=== PATIENT | female | born 1950 | race Caucasian/White ===

== ENCOUNTER 2017-09-20 09:29 | Inpatient (IN) | payer MEDICARE ==
[~2017-09-20] VITALS: Ht 157.5 cm; Wt 166.9 kg
[2017-09-20] VITALS (13 sets, daily range): BP systolic 115–204; BP diastolic 58–104; PULSE 76–93; RESP 16–26; TEMP 97.3–98.2; O2SAT 85–98
--- NOTE | 2017-09-20 09:50 | PD ---
HPI Chief Complaint: Respiratory Distress Time Seen by Provider: 09:46 Travel History International Travel<30 days: No Contact w/Intl Traveler<30days: No Traveled to known affect area: No History of Present Illness HPI LOCATION:chest QUALITY:sob SEVERITY:moderate TIMING: worsening over last 3hrs DURATION:2 days of dry cough and sob CONTACTs:: no sick contact MODIFYING FACTORS:activity makes her more sob ASSOCIATED sign AND SYMPTOMS: denies fever/cp/abdpain/backpain/n/v/d/ at this time pcp in [facility] pmhx: copd, LBBB PSHX: GASTRIC BYPASS, BLEEDING ULCERS PFSH Social History Tobacco Use: No Allergies-Medications (Allergen,Severity, Reaction): Coded Allergies: No Known Drug Allergies (Verified Allergy, Unknown, 09/20/17) Reported Meds & Prescriptions Reported Meds & Active Scripts Active Reported Pantoprazole (Pantoprazole Sodium) 40 Mg Tab 40 Mg PO DAILY Review of Systems Except as stated in HPI: all other systems reviewed are Neg General / Constitutional: No: Fever Eyes: No: Visual changes HENT: No: Headaches Cardiovascular: No: Chest Pain or Discomfort Respiratory: Positive: Shortness of Breath Gastrointestinal: No: Abdominal Pain Genitourinary: No: Dysuria Musculoskeletal: No: Pain Skin: No Rash Neurologic: No: Weakness Psychiatric: No: Depression Endocrine: No: Polydipsia Hematologic/Lymphatic: No: Easy Bruising Physical Exam Narrative GENERAL: SKIN: Warm and dry. HEAD: Atraumatic. Normocephalic. EYES: Pupils equal and round. No scleral icterus. No injection or drainage. ENT: No nasal bleeding or discharge. Mucous membranes pink and moist. NECK: Trachea midline. No JVD. CARDIOVASCULAR: Regular rate and rhythm. RESPIRATORY: No accessory muscle use. decreased tv, scattered wheezing, tripoding, 2 word dyspnea GASTROINTESTINAL: Abdomen soft, non-tender, nondistended. Hepatic and splenic margins not palpable. MUSCULOSKELETAL: Extremities without clubbing, cyanosis, or edema. No obvious deformities. NEUROLOGICAL: Awake and alert. No obvious cranial nerve deficits. Motor grossly within normal limits. Five out of 5 muscle strength in the arms and legs. Normal speech. PSYCHIATRIC: Appropriate mood and affect; insight and judgment normal. Data Data Last Documented VS Orders Orders Complete Blood Count With Diff (09/20/17 10:03) Comprehensive Metabolic Panel (09/20/17 10:03) B-Type Natriuretic Peptide (09/20/17 10:03) Act Partial Throm Time (Ptt) (09/20/17 10:03) Prothrombin Time / Inr (Pt) (09/20/17 10:03) Troponin I (09/20/17 10:03) Influenzae A/B Antigen (09/20/17 10:03) Iv Access Insert/Monitor (09/20/17 10:03) Electrocardiogram (09/20/17 10:03) Ecg Monitoring (09/20/17 10:03) Oximetry (09/20/17 10:03) Oxygen Administration (09/20/17 10:03) Chest, Single Ap (09/20/17 10:03) Sodium Chloride 0.9% Flush (Ns Flush) (09/20/17 10:15) Methylprednisolone So Succ Inj (Solumedr (09/20/17 10:15) Albuterol Neb (Albuterol Neb) (09/20/17 10:15) Resp Bipap / Cpap Non Invas Vt (09/20/17 10:03) Ondansetron Inj (Zofran Inj) (09/20/17 13:45) Admit Order (Ed Use Only) (09/20/17 13:47) Admit To Inpatient (09/20/17 ) Vital Signs (Adult) Q4H (09/20/17 13:47) Activity Oob Ad Dayna (09/20/17 ) Sodium Chloride 0.9% Flush (Ns Flush) (09/20/17 21:00) Sodium Chloride 0.9% Flush (Ns Flush) (09/20/17 14:00) Albuterol-Ipratropium Neb (Duoneb Neb) (09/20/17 16:00) Albuterol Neb (Albuterol Neb) (09/20/17 14:00) Methylprednisolone So Succ Inj (Solumedr (09/20/17 15:00) Azithromycin (Zithromax) (09/20/17 15:00) Ceftriaxone Inj (Rocephin Inj) (09/20/17 15:00) Resp Oxygen Jose Enrique C Titrat 1-4 L (09/20/17 ) Scd Bilateral/Knee High SAM.BID (09/20/17 13:47) Inpatient Certification (09/20/17 ) Labs Laboratory Tests Test 09/20/17 09:48 White Blood Count 9.3 TH/MM3 Red Blood Count 5.55 MIL/MM3 Hemoglobin 14.2 GM/DL Hematocrit 46.1 % Mean Corpuscular Volume 83.1 FL Mean Corpuscular Hemoglobin 25.5 PG Mean Corpuscular Hemoglobin Concent 30.7 % Red Cell Distribution Width 17.5 % Platelet Count 327 TH/MM3 Mean Platelet Volume 8.0 FL Neutrophils (%) (Auto) 78.9 % Lymphocytes (%) (Auto) 14.9 % Monocytes (%) (Auto) 4.4 % Eosinophils (%) (Auto) 1.1 % Basophils (%) (Auto) 0.7 % Neutrophils # (Auto) 7.4 TH/MM3 Lymphocytes # (Auto) 1.4 TH/MM3 Monocytes # (Auto) 0.4 TH/MM3 Eosinophils # (Auto) 0.1 TH/MM3 Basophils # (Auto) 0.1 TH/MM3 CBC Comment DIFF FINAL Differential Comment Prothrombin Time 11.0 SEC Prothromb Time International Ratio 1.1 RATIO Activated Partial Thromboplast Time 28.6 SEC Blood Urea Nitrogen 16 MG/DL Creatinine 0.72 MG/DL Random Glucose 123 MG/DL Total Protein 7.6 GM/DL Albumin 3.2 GM/DL Calcium Level 8.3 MG/DL Alkaline Phosphatase 119 U/L Aspartate Amino Transf (AST/SGOT) 26 U/L Alanine Aminotransferase (ALT/SGPT) 28 U/L Total Bilirubin 0.9 MG/DL Sodium Level 141 MEQ/L Potassium Level 4.7 MEQ/L Chloride Level 100 MEQ/L Carbon Dioxide Level 34.6 MEQ/L Anion Gap 6 MEQ/L Estimat Glomerular Filtration Rate 80 ML/MIN Troponin I LESS THAN 0.02 NG/ML B-Type Natriuretic Peptide 190 PG/ML MDM Medical Decision Making Medical Screen Exam Complete: Yes Emergency Medical Condition: Yes Medical Record Reviewed: Yes Interpretation(s) NSR 85, RAD, LBBB (PATIENT GIVES H/O OF) Differential Diagnosis copd exac with hypoxemia v pna v ptx v uti Narrative Course pulse ox with good pleth wave, 85 on nrbm Critical Care Narrative CRITICAL CARE NOTE: With evaluation of the patient, labs, EKG, receipt of radiologic studies, administration of medications, reevaluation the patient and discussion of the patient with the admitting physicians, the total critical care time was [45] minutes. Time to perform other separately billable procedures was not included in the critical care time. Diagnosis Primary Impression: copd exacerbaton with hypoxemia Additional Impression: moderate to severe hypoxemia requiring bipap Admitting Information Admitting Physician Requests: Observation Duke Barnes MD Sep 20, 2017 09:50
[2017-09-20] MEDS: RESP: ALBUTEROL 2.5 MG/3 ML NEB (SCH) INH ×2 (10:15→10:30)
[2017-09-20] MEDS ORDERED: methylPREDNISolone SOD SUCC 125 MG/2 ML VIAL IV PUSH ONE (10:15)
[2017-09-20] MEDS ORDERED: SODIUM CHLORIDE 0.9% FLUSH 10 ML FLUSH IVF PRN (10:15)
[2017-09-20 10:31] LABS: AUTOMATED NEUTROPHIL # 7.4 TH/MM3 (1.8-7.7); BASOPHIL # 0.1 TH/MM3 (0-0.2); BASOPHIL % 0.7 % (0.0-2.0); EOSINOPHIL # 0.1 TH/MM3 (0-0.4); EOSINOPHIL % 1.1 % (0.0-4.0); HEMATOCRIT 46.1 % (35.0-46.0); HEMOGLOBIN 14.2 GM/DL (11.6-15.3); LYMPH % 14.9 % (9.0-44.0); LYMPHOCYTE # 1.4 TH/MM3 (1.0-4.8); MEAN CELL VOLUME 83.1 FL (80.0-100.0); MEAN CORPUSCULAR HEMOGLOBIN 25.5 PG (27.0-34.0); MEAN CORPUSCULAR HGB CONC 30.7 % (32.0-36.0); MONO % 4.4 % (0.0-8.0); MONOCYTE # 0.4 TH/MM3 (0-0.9); NEUT % 78.9 % (16.0-70.0); PLATELET COUNT 327 TH/MM3 (150-450); RED BLOOD COUNT 5.55 MIL/MM3 (4.00-5.30); RED CELL DISTRIBUTION WIDTH 17.5 % (11.6-17.2); WHITE BLOOD COUNT 9.3 TH/MM3 (4.0-11.0)
[2017-09-20] MEDS ORDERED: PANT40TA3 PO (10:38)
[2017-09-20 10:40] LABS: INTERNATIONAL NORMALIZED RATIO 1.1 RATIO
[2017-09-20 11:04] LABS: ALT (GPT) 28 U/L (10-53)
[2017-09-20 11:08] LABS: ALKALINE PHOSPHATASE 119 U/L (45-117); TOTAL BILIRUBIN ADULT 0.9 MG/DL (0.2-1.0); TOTAL PROTEIN 7.6 GM/DL (6.4-8.2); TROPONIN I LESS THAN 0.02 NG/ML (0.02-0.05)
[2017-09-20 11:16] LABS: ALBUMIN 3.2 GM/DL (3.4-5.0); AST (GOT) 26 U/L (15-37); BICARBONATE 34.6 MEQ/L (21.0-32.0); BLOOD UREA NITROGEN 16 MG/DL (7-18); CALCIUM 8.3 MG/DL (8.5-10.1); CHLORIDE 100 MEQ/L (98-107); CREATININE 0.72 MG/DL (0.50-1.00); GLOMERULAR FILTRATION RATE 80 ML/MIN (>89); GLUCOSE,RANDOM 123 MG/DL (74-106); SODIUM (NA) 141 MEQ/L (136-145)
--- NOTE | 2017-09-20 11:19 | EKG ---
Date Performed: 09/20/2017 Time Performed: 09:41:31 PTAGE: 67 years EKG: Sinus rhythm MARKED RIGHT AXIS DEVIATION INTRAVENTRICULAR CONDUCTION DELAY ABNORMAL ECG NO PREVIOUS TRACING DOCTOR: Roni Mcginnis Interpretating Date/Time 09/20/2017 11:18:09
--- NOTE | 2017-09-20 11:21 | RADRPT ---
EXAM DATE/TIME: 09/20/2017 10:50 [facility] COMPARISON: No previous studies available for comparison. INDICATIONS : Short of breath, pt on bi-pap machine MEDICAL HISTORY : none known SURGICAL HISTORY : none known ENCOUNTER: Initial ACUITY: 1 day PAIN SCORE: Non-responsive. LOCATION: Bilateral chest FINDINGS: A single view of the chest demonstrates the heart is diffusely enlarged for an AP film. There is a co nsolidation lung bases possible atelectasis. Osseous structures are intact. CONCLUSION: Cardiomegaly. Some consolidation in the right lung base most likely atelectasis. Roni Shah MD on September 20, 2017 at 11:17 Board Certified Radiologist. This report was verified electronically.
[2017-09-20] MEDS ORDERED: ONDANSETRON HCL 4 MG/2 ML VIAL IV PUSH ONE (13:45)
[2017-09-20] MEDS ORDERED: SODIUM CHLORIDE 0.9% FLUSH 10 ML FLUSH IV FLUSH PRN (14:00)
--- NOTE | 2017-09-20 14:42 | HHI.HP ---
HPI Service [facility] Primary Care Physician Unknown Admission Diagnosis COPD EXACERBATION WITH HYPOXEMIA Diagnoses: Chief Complaint: SOB Travel History International Travel<30 Days: No Contact w/Intl Traveler <30 Da: No Traveled to Known Affected Are: No History of Present Illness This is a 67-year-old female with past medical history of COPD, history of being oxygen dependent, panic/anxiety/depression disorder who presented with shortness of breathing. Patient stated that shortness of breathing was abrupt and started yesterday. She stated that this was due to her panic attack. She did not think this was due to her COPD. She has been very stressed and did not want to go further detail. She stated that she had a panic attack and these are her usual symptoms. She stated that shortness of breathing was intermittent. It worsened today so she went to the emergency department. She denies any URI symptoms. Denies any cough. Patient denies any history of tobacco use. Denies any fevers or chills. Patient was oxygen dependent but was taken off of oxygen in May. She was told by her provider up in [place] that she was overdosing on oxygen and didn' t need oxygen any longer. Previously she was on 4 L of oxygen. At the moment patient stated that her breathing has improved. She also denied having hypertension. She stated she was on Benicar a few years ago but was taken off her medications and she did not need it. She stated that her blood pressure fluctuates and that her anxiety causes her blood pressure to go up. She also stated that when she goes to doctor's offices her blood pressure is high. Patient's is at the bedside during the interview. All other review system reviewed and negative. Past Family Social History Past Medical History COPD History of bleeding ulcer Panic attacks Anxiety Depression History of hypertension but stated that blood pressure control off the medication Past Surgical History Gastric bypass Cauterization due to bleeding ulcer Cholecystectomy Tonsillectomy D&C Hernia repair Reported Medications Pantoprazole (Pantoprazole Sodium) 40 Mg Tab 40 Mg PO DAILY Allergies: Coded Allergies: No Known Drug Allergies (Verified Allergy, Unknown, 09/20/17) Active Ordered Medications Current Medications Sodium Chloride (NS Flush) 2 ml UNSCH PRN IVF FLUSH AFTER USING IV ACCESS; Start 09/20/17 at 10:15; Stop 09/20/17 at 14:43; Status DC Methylprednisolone Sodium Succinate (SoluMEDROL INJ) 125 mg ONCE ONCE IV PUSH Last administered on 09/20/17at 10:48; Start 09/20/17 at 10:15; Stop 09/20/17 at 10:16; Status DC Albuterol Sulfate (Albuterol Neb) 2.5 mg Q15M INH Last administered on at 10:30; Start 09/20/17 at 10:15; Stop 09/20/17 at 10:31; Status DC Ondansetron HCl (Zofran Inj) 4 mg ONCE ONCE IV PUSH Last administered on at 13:40; Start 09/20/17 at 13:45; Stop 09/20/17 at 13:46; Status DC Sodium Chloride (NS Flush) 2 ml BID IV FLUSH ; Start 09/20/17 at 21:00 Sodium Chloride (NS Flush) 2 ml UNSCH PRN IV FLUSH FLUSH AFTER USING IV ACCESS ; Start 09/20/17 at 14:00 Albuterol/ Ipratropium (Duoneb Neb) 1 ampule Q4HR NEB INH Last administered on 09/20/17at 15:08; Start 09/20/17 at 16:00 Albuterol Sulfate (Albuterol Neb) 2.5 mg Q2HR NEB PRN INH SHORTNESS OF BREATH; Start 09/20/17 at 14:00 Methylprednisolone Sodium Succinate (SoluMEDROL INJ) 60 mg Q6H IV PUSH ; Start 09/20/17 at 15:00 Azithromycin (Zithromax) 500 mg Taper DAILY PO ; Start 09/20/17 at 15:00; Stop 09/25/17 at 14:59 Ceftriaxone Sodium 1000 mg/ Sodium Chloride 100 ml @ 200 mls/hr Q24H IV ; Start 09/20/17 at 15:00 Pantoprazole Sodium (Protonix) 40 mg DAILY PO ; Start 09/21/17 at 09:00 Enalaprilat (Vasotec Inj) 2.5 mg Q6H PRN IV PUSH SBP>190 or DBP>100; Start at 15:00 Family History Mother had a history of lung cancer. Father had history of heart problems. Social History Patient is a snow bird. She lives in [facility]. Denying tobacco, alcohol , or illicit drug use. Physical Exam Vital Signs Vital Signs Date Time Temp Pulse Resp B/P (MAP) Pulse Ox O2 Delivery O2 Flow Rate FiO2 09/20/17 14:01 94 Nasal Cannula 5.00 09/20/17 10:12 95 BiPAP 50 09/20/17 09:55 98 50 09/20/17 09:46 97.6 90 19 204/104 (137) 89 Non-Rebreather 15.00 Physical Exam GENERAL: This is a well-nourished, well-developed patient, in no apparent distress. SKIN: No rashes, ecchymoses or lesions. Cool and dry. HEAD: Atraumatic. Normocephalic. No temporal or scalp tenderness. EYES: Pupils equal round and reactive. Extraocular motions intact. No scleral icterus. No injection or drainage. ENT: Nose without bleeding, purulent drainage or septal hematoma. Throat without erythema, tonsillar hypertrophy or exudate. Uvula midline. Airway patent. NECK: Trachea midline. No JVD or lymphadenopathy. Supple, nontender, no meningeal signs. CARDIOVASCULAR: Regular rate and rhythm without murmurs, gallops, or rubs. RESPIRATORY: Decreased breath sounds in the bilateral lower base with mild wheezing otherwise clear to oxygenation bilaterally. No wheezes, rales, or rhonchi. GASTROINTESTINAL: Abdomen soft, non-tender, nondistended. No hepato-splenomegaly , or palpable masses. No guarding. MUSCULOSKELETAL: Extremities without clubbing, cyanosis, or edema. No joint tenderness, effusion, or edema noted. No calf tenderness. Negative Homans sign bilaterally. NEUROLOGICAL: Awake and alert. Cranial nerves II through XII intact. Motor and sensory grossly within normal limits. Five out of 5 muscle strength in all muscle groups. Normal speech. Laboratory Laboratory Tests Test 09/20/17 09:48 White Blood Count 9.3 Red Blood Count 5.55 Hemoglobin 14.2 Hematocrit 46.1 Mean Corpuscular Volume 83.1 Mean Corpuscular Hemoglobin 25.5 Mean Corpuscular Hemoglobin Concent 30.7 Red Cell Distribution Width 17.5 Platelet Count 327 Mean Platelet Volume 8.0 Neutrophils (%) (Auto) 78.9 Lymphocytes (%) (Auto) 14.9 Monocytes (%) (Auto) 4.4 Eosinophils (%) (Auto) 1.1 Basophils (%) (Auto) 0.7 Neutrophils # (Auto) 7.4 Lymphocytes # (Auto) 1.4 Monocytes # (Auto) 0.4 Eosinophils # (Auto) 0.1 Basophils # (Auto) 0.1 CBC Comment DIFF FINAL Differential Comment Prothrombin Time 11.0 Prothromb Time International Ratio 1.1 Activated Partial Thromboplast Time 28.6 Blood Urea Nitrogen 16 Creatinine 0.72 Random Glucose 123 Total Protein 7.6 Albumin 3.2 Calcium Level 8.3 Alkaline Phosphatase 119 Aspartate Amino Transf (AST/SGOT) 26 Alanine Aminotransferase (ALT/SGPT) 28 Total Bilirubin 0.9 Sodium Level 141 Potassium Level 4.7 Chloride Level 100 Carbon Dioxide Level 34.6 Anion Gap 6 Estimat Glomerular Filtration Rate 80 Troponin I LESS THAN 0.02 B-Type Natriuretic Peptide 190 Date/Time Source Procedure Growth Status 09/20/17 11:32 Nasal Washing Influenza Types A,B Antigen (LAURIE) - Final NEGATIVE FOR FLU A AND B ANTIGEN.... Complete Result Diagram: 09/20/17 0948 09/20/17 0948 Imaging Last Impressions Chest X-Ray 09/20/17 1003 Signed Impressions: Service Date/Time: Wednesday, September 20, 2017 10:50 - CONCLUSION: Cardiomegaly. Some consolidation in the right lung base most likely atelectasis. Roni Shah MD Course Patient received 2 nebs and Solu-Medrol with drastic improvement with her respiratory status. While in the ED she was put on nonrebreather and BiPAP but we treatment that resolved quickly currently on nasal cannula 5 L. Caprini VTE Risk Assessment Caprini VTE Risk Assessment: Mod/High Risk (score >= 2) Caprini Risk Assessment Model Point Value = 1 Point Value = 2 Point Value = 3 Point Value = 5 Age 41-60 Minor surgery BMI > 25 kg/m2 Swollen legs Varicose veins or History of unexplained or recurrent spontaneous Oral contraceptives or hormone replacement Sepsis (< 1 month) Serious lung disease, including pneumonia (< 1 month) Abnormal pulmonary function Acute myocardial infarction Congestive heart failure (< 1 month) History of inflammatory bowel disease Medical patient at bed rest Age 61-74 Arthroscopic surgery Major open surgery (> 45 min) Laparoscopic surgery (> 45 min) Malignancy Confined to bed (> 72 hours) Immobilizing plaster cast Central venous access Age >= 75 History of VTE Family history of VTE Factor V Leiden Prothrombin [id number] Lupus anticoagulant Anticardiolipin antibodies Elevated serum homocysteine Heparin-induced thrombocytopenia Other congenital or acquired thrombophilia Stroke (< 1 month) Elective arthroplasty Hip, pelvis, or leg fracture Acute spinal cord injury (< 1 month) Prophylaxis Regimen Total Risk Factor Score Risk Level Prophylaxis Regimen 0-1 Low Early ambulation 2 Moderate Order ONE of the following: *Sequential Compression Device (SCD) *Heparin 5000 units SQ BID 3-4 Higher Order ONE of the following medications: *Heparin 5000 units SQ TID *Enoxaparin/Lovenox 40 mg SQ daily (WT < 150 kg, CrCl > 30 mL/min) *Enoxaparin/Lovenox 30 mg SQ daily (WT < 150 kg, CrCl > 10-29 mL/min) *Enoxaparin/Lovenox 30 mg SQ BID (WT < 150 kg, CrCl > 30 mL/min) AND/OR *Sequential Compression Device (SCD) 5 or more Highest Order ONE of the following medications: *Heparin 5000 units SQ TID (Preferred with Epidurals) *Enoxaparin/Lovenox 40 mg SQ daily (WT < 150 kg, CrCl > 30 mL/min) *Enoxaparin/Lovenox 30 mg SQ daily (WT < 150 kg, CrCl > 10-29 mL/min) *Enoxaparin/Lovenox 30 mg SQ BID (WT < 150 kg, CrCl > 30 mL/min) AND *Sequential Compression Device (SCD) Assessment and Plan Assessment and Plan 67-year-old female history of COPD who presented with Acute respiratory failure -Unsure if patient requires oxygen at her baseline. She was previously on 4 L of oxygen at home but was taken off of oxygen abruptly. Currently patient requires 5 L of oxygen. -Most likely due to COPD exacerbation. -Chest x-ray shows right lower lobe infiltrate which may be due to atelectasis. -Will give Solu-Medrol, DuoNeb nebs, albuterol when necessary, Rocephin and azithromycin. Supplement with oxygen to keep to keep oxygen saturation above 88 %. COPD -History of dependency on oxygen prior 4 L. Patient stated that she was told to stop oxygen that she no longer need oxygen May. Patient may still require home oxygen. -We'll place a walk test. Elevated blood pressure -Patient does have a history of hypertension but she stated that she was told a few years ago that she no longer has hypertension so did not need to take any antihypertensive medication. During hospitalization blood pressure is elevated which may be due to her respiratory failure, panic attack, and anxiety. Will give when necessary enalapril and if needed will give oral medication. Panic attacks/anxiety/depression -Currently patient is not on any medication. She stated she is doing better. Stable. Patient can follow up as outpatient. History of bleeding ulcer -Continue Protonix DVT prophylaxis -Chemoprophylaxis contraindicated. SCDs. Encourage ambulation. Discussed Condition With Patient and her Physician Certification 2 Midnight Certification Type: Admission for Inpatient Services Order for Inpatient Services The services are ordered in accordance with Medicare regulations or non- Medicare payer requirements, as applicable. In the case of services not specified as inpatient-only, they are appropriately provided as inpatient services in accordance with the 2-midnight benchmark. Estimated LOS (days): 3 3 days is the estimated time the patient will need to remain in the hospital, assuming treatment plan goals are met and no additional complications. Post-Hospital Plan: Katie Kennedy MD Sep 20, 2017 14:42
[2017-09-20] MEDS ORDERED: ENALAPRILAT 2.5 MG/2 ML VIAL IV PUSH PRN (15:00)
[2017-09-20] MEDS: methylPREDNISolone SOD SUCC 125 MG/2 ML VIAL IV PUSH SCH (15:00)
[2017-09-20] MEDS: RESP: ALBUTEROL 2.5 MG/IPRATROPIUM 0.5 MG NEB (SCH) INH ×2 (15:08→19:26)
[2017-09-20] MEDS: cefTRIAXone INJ 1,000 MG in SODIUM CHLORIDE 0.9% INJ 100 ML IV SCH (15:51)
[2017-09-20] MEDS: SODIUM CHLORIDE 0.9% FLUSH 10 ML FLUSH IV FLUSH SCH (21:30)
[2017-09-20] MEDS ORDERED: PROPOFOL 500 MG/50 ML INJ 50 ML ONE ×2 (21:35→22:13)
[2017-09-20] MEDS ORDERED: SUCCINYLCHOLINE CHLORIDE 200 MG/10 ML VIAL ONE (21:36)
--- NOTE | 2017-09-20 21:43 | HHI.PR ---
Addendum to Inpatient Note Addendum Reason: Additional Documentation Additional Information Rapid response was called on this patient because pt was found to be saturating at 85% on 5L NC and looking drowsy. the team immediately put pt on bipap came to see pt at the bedside pt is on bipap, settings at 10/5, fio2 60%- saturating 93% on this eyes closed, but wound answer yes or no questions by nodding head/ shaking head Answers questions appropriately although it is in short sentences. On exam, patient is morbidly obese. Heart rate is regular. Hypoechoic. Limited exam due to BiPAP sounds. Lungs sounds are diminished. Again limited exam with these BiPAP sounds. Abdomen is soft, nontender. Patient has some mid abdomen dressing. And any the dressing is mainly just superficial ulcers from obesity/edema. Bilateral lower extremity with no calf asymmetry. Neuro exam: Drowsy. But easily arousable to tactile stimuli. No gross focal deficit. Chart reviewed. Patient admitted with COPD exacerbation. Patient who used to be on 4 L nasal cannula as home oxygen was not pain taking it since May or so apparently. Pressure is better controlled. Patient is not on IV fluids. She is receiving Rocephin and azithromycin for possible pneumonia. ABG reviewed. Severe respiratory acidosis with pH of 7.1, PCO2 of 108. Impression: Acute hypoxemic and hypercapnic respiratory failure. CO2 narcosis. COPD exacerbation. Significant hypoxia and morbidly obese limited ambulatory patient. Question whether possible pulmonary embolism. Plan: Transfer patient to ICU. Adjust BiPAP settings 15 over 5, FiO2 to keep O2 sat at 88-90%. Currently she is requiring FiO2 of 55% to maintain O2 sat around 90-92%. Start patient on heparin drip for possible pulmonary embolism. No imaging studies will be done tonight as patient is not stable to undergo CT. Resume current treatment with nebulizers, steroids, antibiotics. CXR to obtain Discussed with straightening machine operator flight reservations manager. Transfer patient to ICU and her straightening machine operator service for possible further deterioration which might require intubation. Critical care time 30 minutes Quentin Anaya MD Sep 20, 2017 21:43
[2017-09-20] MEDS ORDERED: HEPARIN SODIUM - IV 10,000 UNITS/10 ML VIAL IV PUSH ONE (21:45)
[2017-09-20] MEDS ORDERED: HEPARIN-D5W 25,000 U/250 ML 250 ML IV PRN (21:45)
[2017-09-20] MEDS ORDERED: SUCCINYLCHOLINE CHLORIDE 100 MG/5 ML SYRINGE IV PUSH PRN (22:00)
[2017-09-20] MEDS: SODIUM CHLOR 0.9% 1000 ML INJ 1,000 ML IV SCH (22:30)
--- NOTE | 2017-09-20 22:39 | RADRPT ---
EXAM DATE/TIME: 09/20/2017 22:10 [facility] COMPARISON: CHEST SINGLE AP, September 20, 2017, 10:50. INDICATIONS : Post intubation. MEDICAL HISTORY : Chronic obstructive pulmonary disease. SURGICAL HISTORY : Appendectomy. Cholecystectomy. Gastric bypass. ENCOUNTER: Subsequent ACUITY: 1 day PAIN SCORE: Non-responsive. LOCATION: Bilateral chest FINDINGS: 2 portable frontal views of the chest are significantly limited due to the patient's body habitus in conjunction with breathing motion artifact and the portable nature of the acquisition. An endotracheal tube is seen with the tip within the right mainstem bronchus. Suggest retracting it a pproximately 4 cm. Heart is enlarged. Bibasilar pulmonary consolidations. CONCLUSION: 1. Very limited study. 2. Tip of the endotracheal tube within the right mainstem bronchus. Suggest retracting it approximate ly 4 cm. 3. Bibasilar densities. This may be in part due to effusions. Vivek Sung Jr., MD on September 20, 2017 at 22:36 Board Certified Radiologist. This report was verified electronically.
[2017-09-20] MEDS: PROPOFOL 1000 MG/100 ML IV PRN (23:02)
--- NOTE | 2017-09-20 23:17 | PD.CONS ---
HPI Service Critical Care Medicine Consult Requested By Primary Care Physician Unknown History of Present Illness 67-year-old unfortunate morbidly obese female with past medical history of COPD , history of being oxygen dependent, panic/anxiety/depression disorder who presented with shortness of breathing. Patient stated that shortness of breathing was abrupt and started yesterday. She stated that this was due to her panic attack. She did not think this was due to her COPD. Patient was oxygen dependent but was taken off of oxygen in May. She was told by her provider up in [place] that she was overdosing on oxygen and didn't need oxygen any longer. Previously she was on 4 L of oxygen. She has received some treatment in the emergency department with the BiPAP with some improvement of her respiratory distress. She was admitted to medical floor where she did radiated became severely hypercapnic and hypoxemic. She was transferred emergently to ICU and immediately intubated for respiratory failure. Review of Systems ROS Unobtainable patient is sedated and intubated Past Family Social History Allergies: Coded Allergies: No Known Drug Allergies (Verified Allergy, Unknown, 09/20/17) Past Medical History COPD History of bleeding ulcer Panic attacks Anxiety Depression History of hypertension but stated that blood pressure control off the medication Past Surgical History Gastric bypass Cauterization due to bleeding ulcer Cholecystectomy Tonsillectomy D&C Hernia repair Reported Medications Reported Meds & Active Scripts Active Reported Pantoprazole (Pantoprazole Sodium) 40 Mg Tab 40 Mg PO DAILY Active Ordered Medications Current Medications Medications (Trade) Dose Ordered Sig/Sandra Route PRN Reason Start Time Stop Time Status Last Admin Dose Admin Sodium Chloride (NS Flush) 2 ml BID IV FLUSH 09/20/17 21:00 Sodium Chloride (NS Flush) 2 ml UNSCH PRN IV FLUSH FLUSH AFTER USING IV ACCESS 09/20/17 14:00 Albuterol/ Ipratropium (Duoneb Neb) 1 ampule Q4HR NEB INH 09/20/17 16:00 09/20/17 19:26 Albuterol Sulfate (Albuterol Neb) 2.5 mg Q2HR NEB PRN INH SHORTNESS OF BREATH 09/20/17 14:00 Methylprednisolone Sodium Succinate (SoluMEDROL INJ) 60 mg Q6H IV PUSH 09/20/17 15:00 Azithromycin (Zithromax) 500 mg Taper DAILY PO 09/20/17 15:00 09/25/17 14:59 Ceftriaxone Sodium 1000 mg/ Sodium Chloride 100 ml @ 200 mls/hr Q24H IV 09/20/17 15:00 09/20/17 15:51 Pantoprazole Sodium (Protonix) 40 mg DAILY PO 09/21/17 09:00 Enalaprilat (Vasotec Inj) 2.5 mg Q6H PRN IV PUSH SBP>190 or DBP>100 09/20/17 15:00 Heparin Sodium/ Dextrose 250 ml @ 18 mls/hr TITRATE PRN IV Coagulation Management 09/20/17 21:45 Sodium Chloride 1,000 ml @ 100 mls/hr Q10H IV 09/20/17 22:30 Propofol 100 ml @ 4.809 mls/ hr TITRATE PRN IV Sedation 09/20/17 22:30 09/20/17 23:02 Family History Mother had a history of lung cancer. Father had history of heart problems Social History Patient is a snow bird. She lives in [facility]. Denying tobacco, alcohol , or illicit drug use. Physical Exam Vital Signs Vital Signs Date Time Temp Pulse Resp B/P (MAP) Pulse Ox O2 Delivery O2 Flow Rate FiO2 09/20/17 21:32 96 55 09/20/17 20:33 95 Bi-Pap 09/20/17 20:32 95 60 09/20/17 20:31 83 18 121/58 (79) 94 09/20/17 20:24 82 18 134/61 (85) 95 09/20/17 20:05 97.3 88 18 115/60 (78) 85 09/20/17 19:26 98 Nasal Cannula 5.00 09/20/17 17:49 Nasal Cannula 5.00 09/20/17 16:50 09/20/17 16:45 98.0 93 20 138/63 (88) 90 09/20/17 15:30 79 16 178/70 (106) 90 Nasal Cannula 5.00 09/20/17 14:01 94 Nasal Cannula 5.00 09/20/17 10:12 95 BiPAP 50 09/20/17 09:55 98 50 09/20/17 09:46 97.6 90 19 204/104 (137) 89 Non-Rebreather 15.00 Physical Exam GENERAL: Morbidly obese female sedated and intubated SKIN: No rashes, ecchymoses or lesions. Cool and dry. HEAD: Atraumatic. Normocephalic. No temporal or scalp tenderness. EYES: Pupils equal round and reactive. Extraocular motions intact. No scleral icterus. No injection or drainage. ENT: Nose without bleeding, purulent drainage or septal hematoma. Throat without erythema, tonsillar hypertrophy or exudate. Uvula midline. Airway patent. NECK: Trachea midline. No JVD or lymphadenopathy. Supple, nontender, no meningeal signs. CARDIOVASCULAR: Regular rate and rhythm without murmurs, gallops, or rubs. RESPIRATORY: Decreased breath sounds in the bilateral lower base with mild wheezing otherwise clear to oxygenation bilaterally. No wheezes, rales, or rhonchi. GASTROINTESTINAL: Abdomen soft, non-tender, nondistended. No hepato-splenomegaly , or palpable masses. No guarding. MUSCULOSKELETAL: Extremities without clubbing, cyanosis, or edema. No joint tenderness, effusion, or edema noted. No calf tenderness. Negative Homans sign bilaterally. NEUROLOGICAL: Sedated and intubated female. Five out of 5 muscle strength in all muscle groups. Laboratory Laboratory Tests Test 09/20/17 09:48 09/20/17 20:29 White Blood Count 9.3 Red Blood Count 5.55 Hemoglobin 14.2 Hematocrit 46.1 Mean Corpuscular Volume 83.1 Mean Corpuscular Hemoglobin 25.5 Mean Corpuscular Hemoglobin Concent 30.7 Red Cell Distribution Width 17.5 Platelet Count 327 Mean Platelet Volume 8.0 Neutrophils (%) (Auto) 78.9 Lymphocytes (%) (Auto) 14.9 Monocytes (%) (Auto) 4.4 Eosinophils (%) (Auto) 1.1 Basophils (%) (Auto) 0.7 Neutrophils # (Auto) 7.4 Lymphocytes # (Auto) 1.4 Monocytes # (Auto) 0.4 Eosinophils # (Auto) 0.1 Basophils # (Auto) 0.1 CBC Comment DIFF FINAL Differential Comment Prothrombin Time 11.0 Prothromb Time International Ratio 1.1 Activated Partial Thromboplast Time 28.6 Blood Urea Nitrogen 16 Creatinine 0.72 Random Glucose 123 Total Protein 7.6 Albumin 3.2 Calcium Level 8.3 Alkaline Phosphatase 119 Aspartate Amino Transf (AST/SGOT) 26 Alanine Aminotransferase (ALT/SGPT) 28 Total Bilirubin 0.9 Sodium Level 141 Potassium Level 4.7 Chloride Level 100 Carbon Dioxide Level 34.6 Anion Gap 6 Estimat Glomerular Filtration Rate 80 Troponin I LESS THAN 0.02 B-Type Natriuretic Peptide 190 Blood Gas Puncture Site LT RADIAL Blood Gas Patient Temperature 98.6 Blood Gas HCO3 36 Blood Gas Base Excess 7.5 Blood Gas Oxygen Saturation 93 Arterial Blood pH 7.15 Arterial Blood Partial Pressure CO2 108 Arterial Blood Partial Pressure O2 97 Arterial Blood Oxygen Content 18.4 Arterial Blood Carboxyhemoglobin 1.5 Arterial Blood Methemoglobin 1.1 Blood Gas Hemoglobin 14.0 Oxygen Delivery Device BiPAP Blood Gas Ventilator Setting IPAP 10/ EPAP 5 Blood Gas Inspired Oxygen 60 Date/Time Source Procedure Growth Status 09/20/17 11:32 Nasal Washing Influenza Types A,B Antigen (LAURIE) - Final NEGATIVE FOR FLU A AND B ANTIGEN.... Complete Result Diagram: 09/20/17 0948 09/20/17 0948 Imaging Last 24 hours Impressions Chest X-Ray 09/20/17 1003 Signed Impressions: Service Date/Time: Wednesday, September 20, 2017 10:50 - CONCLUSION: Cardiomegaly. Some consolidation in the right lung base most likely atelectasis. Roni Shah MD Chest X-Ray 09/20/17 0000 Signed Impressions: Service Date/Time: Wednesday, September 20, 2017 22:10 - CONCLUSION: 1. Very limited study. 2. Tip of the endotracheal tube within the right mainstem bronchus. Suggest retracting it approximately 4 cm. 3. Bibasilar densities. This may be in part due to effusions. Vivek Sung Jr., MD Septic Shock Reassessment Septic shock perfusion: reassessment completed Assessment and Plan Assessment and Plan Respiratory failure - Underlying COPD - Obesity hypoventilation syndrome and obstructive sleep apnea - Mechanical ventilation - No weaning until respiratory acidosis improves - ABG and CXR daily - CT PE protocol COPD - DuoNeb scheduled and when necessary - IV steroids - Empiric antibiotics Anxiety/depression/panic attack - Benzodiazepines when necessary DVT GI prophylaxis - Teds SCDs - Currently on heparin drip - Protonix Critical Care: The total critical care time was 35 minutes. Time to perform other separately billable procedures was not included in the critical care time. Arnoldo Arroyo MD Sep 20, 2017 11:17 pm
--- NOTE | 2017-09-20 23:40 | PD.PROCEDR ---
Procedure Note Procedure Endotracheal Intubation A time-out was completed verifying correct patient, procedure, site, positioning , and special equipment if applicable. The patient was placed in a flat position. Sedation was obtained using Etomidate 20mg. The patient was easily ventilated using an ambu bag. The [employer]/ MAC 4 BLADE was used and inserted into the oropharynx at which time there was a Grade 1 view of the vocal cords. A 8-indonesian endotracheal tube was inserted and visualized going through the vocal cords. The stylette was removed. Colorimetric change was visualized on the CO2 meter. Breath sounds were heard in both lung foote equally. The endotracheal tube was placed at 23 cm, measured at the teeth. A chest x-ray was ordered to assess for pneumothorax and verify endotrachealtube placement. Estimated Blood Loss: 0 The patient tolerated the procedure well and there were no complications. Arnoldo Arroyo MD Sep 20, 2017 11:39 pm
[2017-09-21] VITALS (18 sets, daily range): BP systolic 123–185; BP diastolic 60–95; PULSE 62–78; RESP 14–20; TEMP 97.7–99.3; O2SAT 93–100
--- NOTE | 2017-09-21 00:09 | RADRPT ---
EXAM DATE/TIME: 09/20/2017 23:39 [facility] COMPARISON: CHEST SINGLE AP, September 20, 2017, 22:10. INDICATIONS : ET tube repositioning MEDICAL HISTORY : Chronic obstructive pulmonary disease. SURGICAL HISTORY : Appendectomy. Cholecystectomy. Gastric bypass ENCOUNTER: Initial ACUITY: 1 day PAIN SCORE: Non-responsive. LOCATION: Bilateral chest FINDINGS: There is an ET tube just above the edilberto. ET tube previously was seen in the right mainstem bronchus . There is an NG tube in place. The cardiac silhouette is enlarged. There is increased density at the left base with silhouetting the left hemidiaphragm. The right lung is grossly clear. CONCLUSION: 1. ET tube is just barely above the edilberto. The tip of ET tube is 0.8 cm from the inferior aspect of the edilberto. It previously was in the right mainstem bronchus. 2. Cardiomegaly. 3. Increased density at the left base secondary to atelectasis, consolidation and/or effusion. Eugene Miller MD on September 21, 2017 at 0:05 Board Certified Radiologist. This report was verified electronically.
[2017-09-21] MEDS: RESP: ALBUTEROL 2.5 MG/IPRATROPIUM 0.5 MG NEB (SCH) INH ×6 (00:20→19:40)
[2017-09-21] MEDS ORDERED: CISATRACURIUM BESYLATE 10 MG/5 ML VIAL IV PUSH ONE (01:00)
[2017-09-21] MEDS: PROPOFOL 1000 MG/100 ML IV PRN ×8 (01:15→22:46)
[2017-09-21] MEDS ORDERED: IOHEXOL 350 MG/ML 10 ML VIAL (for RAD DIAG) IVCONTRAST ONE (01:38)
--- NOTE | 2017-09-21 02:09 | RADRPT ---
EXAM DATE/TIME: 09/21/2017 01:28 [facility] COMPARISON: CHEST SINGLE AP, September 20, 2017, 23:39. INDICATIONS : Respiratory failure. Evaluate for emboli. IV CONTRAST: 100 cc Omnipaque 350 (iohexol) IV RADIATION DOSE: 32.98 CTDIvol (mGy) ; Patient body habitus MEDICAL HISTORY : Chronic obstructive pulmonary disease. SURGICAL HISTORY : Appendectomy. Cholecystectomy. ENCOUNTER: Initial ACUITY: 1 day PAIN SCALE: Non-responsive LOCATION: chest TECHNIQUE: Volumetric scanning of the chest was performed using a pulmonary embolism protocol MIP images were re constructed. Using automated exposure control and adjustment of the mA and/or kV according to patien t size, radiation dose was kept as low as reasonably achievable to obtain optimal diagnostic quality images. DICOM format image data is available electronically for review and comparison. Follow-up recommendations for detected pulmonary nodules are based at a minimum on nodule size and pa tient risk factors according to Fleischner Society Guidelines. FINDINGS: PULMONARY ARTERIES: No filling defects are seen in the pulmonary arteries through the segmental level. The central pulmon claribel arteries are prominent with the right and left main pulmonary arteries being similar in size to t he aorta. LUNGS: There is suspected atelectasis at the medial aspects of the lungs bilaterally. There is further incre ased density at the left base representing some consolidation or atelectasis. PLEURAE: There are small bilateral pleural effusions being greater on the right. MEDIASTINUM: ET tube tip is at the edilberto. There is good visualization of the great vessels of the middle mediasti num. No evidence of mediastinal or hilar adenopathy/mass. MUSCULOSKELETAL: Within normal limits for patient age. MISCELLANEOUS: The visualized upper abdominal organs demonstrate no acute abnormality. CONCLUSION: 1. No pulmonary embolus. 2. There is a suspected atelectasis or consolidation seen along the medial aspects of the lungs bilat erally and at the left base. 3. The main pulmonary superior prominent which can suggest pulmonary hypertension. 4. The ET tube tip is at the edilberto. 5. Small pleural effusions. Eugene Miller MD on September 21, 2017 at 2:02 Board Certified Radiologist. This report was verified electronically.
[2017-09-21] MEDS: methylPREDNISolone SOD SUCC 125 MG/2 ML VIAL IV PUSH SCH ×4 (03:37→19:58)
[2017-09-21 05:52] LABS: AUTOMATED NEUTROPHIL # 10.2 TH/MM3 (1.8-7.7); BASOPHIL % 0.3 % (0.0-2.0); HEMATOCRIT 40.8 % (35.0-46.0); HEMOGLOBIN 12.7 GM/DL (11.6-15.3); LYMPH % 7.7 % (9.0-44.0); LYMPHOCYTE # 0.9 TH/MM3 (1.0-4.8); MEAN CELL VOLUME 83.1 FL (80.0-100.0); MEAN CORPUSCULAR HEMOGLOBIN 25.9 PG (27.0-34.0); MEAN CORPUSCULAR HGB CONC 31.2 % (32.0-36.0); MEAN PLATELET VOLUME 8.3 FL (7.0-11.0); MONOCYTE # 0.8 TH/MM3 (0-0.9); PLATELET COUNT 290 TH/MM3 (150-450); RED BLOOD COUNT 4.92 MIL/MM3 (4.00-5.30); RED CELL DISTRIBUTION WIDTH 17.3 % (11.6-17.2); WHITE BLOOD COUNT 12.1 TH/MM3 (4.0-11.0)
--- NOTE | 2017-09-21 05:55 | RADRPT ---
EXAM DATE/TIME: 09/21/2017 05:30 [facility] COMPARISON: CT PULMONARY ANGIOGRAM, September 21, 2017, 1:28. CHEST SINGLE AP, September 20, 2017, 23:39. INDICATIONS : Respiratory failure MEDICAL HISTORY : Chronic obstructive pulmonary disease SURGICAL HISTORY : Appendectomy. Cholecystectomy ENCOUNTER: Subsequent ACUITY: 1 day PAIN SCORE: Non-responsive. LOCATION: Bilateral chest FINDINGS: The ET tube tip is at the edilberto. NG tube is directed into the stomach. The heart size appears enlarg ed. There is increased density in the lower lungs bilaterally. There is silhouetting of the left leo diaphragm. CONCLUSION: 1. ET tube at the edilberto. 2. Cardiomegaly. 3. Increased density at the bases related to atelectasis, consolidation and/or effusion being worse o n the left. Eugene Miller MD on September 21, 2017 at 5:52 Board Certified Radiologist. This report was verified electronically.
[2017-09-21 06:25] LABS: ALBUMIN 2.6 GM/DL (3.4-5.0); ALKALINE PHOSPHATASE 91 U/L (45-117); ALT (GPT) 19 U/L (10-53); AST (GOT) 12 U/L (15-37); BICARBONATE 33.8 MEQ/L (21.0-32.0); BLOOD UREA NITROGEN 18 MG/DL (7-18); CHLORIDE 101 MEQ/L (98-107); CREATININE 0.71 MG/DL (0.50-1.00); GLOMERULAR FILTRATION RATE 82 ML/MIN (>89); GLUCOSE,RANDOM 141 MG/DL (74-106); MAGNESIUM 1.8 MG/DL (1.5-2.5); SODIUM (NA) 142 MEQ/L (136-145); TOTAL BILIRUBIN ADULT 0.9 MG/DL (0.2-1.0); TOTAL PROTEIN 6.2 GM/DL (6.4-8.2)
[2017-09-21 06:59] LABS: BILIRUBIN, URINE NEG (NEG); BLOOD, URINE NEG (NEG); GLUCOSE,URINE NEG (NEG); KETONE, URINE 10 mg/dL (NEG); NITRITE,URINE NEG (NEG); PH, URINE 8.5 (5.0-8.5); URINE COLOR YELLOW (YELLW/STRAW); URINE LEUKOCYTE ESTERASE TRACE (NEG)
[2017-09-21] MEDS: SODIUM CHLOR 0.9% 1000 ML INJ 1,000 ML IV SCH ×2 (08:04→18:20)
[2017-09-21] MEDS: SODIUM CHLORIDE 0.9% FLUSH 10 ML FLUSH IV FLUSH SCH ×2 (08:04→19:58)
[2017-09-21] MEDS: PANTOPRAZOLE SOD 40 MG DELAYED RELEASE TAB PO SCH (08:05)
[2017-09-21] MEDS: AZITHROMYCIN 250 MG TAB PO SCH (08:05)
[2017-09-21] MEDS: ENOXAPARIN SODIUM 40 MG/0.4 ML SYRINGE SQ SCH ×2 (10:00→22:46)
[2017-09-21] MEDS: cefTRIAXone INJ 1,000 MG in SODIUM CHLORIDE 0.9% INJ 100 ML IV SCH (14:33)
--- NOTE | 2017-09-21 15:22 | HHI.CCPN ---
Subjective Remarks/Hospital Course 67-year-old unfortunate morbidly obese female with past medical history of COPD , history of being oxygen dependent, panic/anxiety/depression disorder who presented with shortness of breathing. Patient stated that shortness of breathing was abrupt and started yesterday. She stated that this was due to her panic attack. She did not think this was due to her COPD. Patient was oxygen dependent but was taken off of oxygen in May. She was told by her provider up in [place] that she was overdosing on oxygen and didn't need oxygen any longer. Previously she was on 4 L of oxygen. She has received some treatment in the emergency department with the BiPAP with some improvement of her respiratory distress. She was admitted to medical floor where she did radiated became severely hypercapnic and hypoxemic. She was transferred emergently to ICU and immediately intubated for respiratory failure. 09/21/17: Remains intubated sedated critically ill. FiO2 had been weaned to 60% PEEP remains at 10. On brief sedation hold able to follow commands 4. Chest x -ray shows bibasilar consolidation. Send sputum culture. DC ceftriaxone. Start cefepime 2 g IV every 8 hours, Levaquin 750 mg every 24 hours Objective Vital Signs Date Time Temp Pulse Resp B/P (MAP) Pulse Ox O2 Delivery O2 Flow Rate FiO2 09/21/17 12:00 99.3 78 18 149/63 (91) 95 09/21/17 12:00 60 09/21/17 07:00 Mechanical Ventilator 09/20/17 19:26 5.00 Intake and Output 09/21/17 09/21/17 09/22/17 08:00 16:00 00:00 Intake Total 300 ml 100 ml Output Total 725 ml Balance -425 ml 100 ml Result Diagram: 09/21/17 0432 09/21/17 0432 Other Results Microbiology Date/Time Source Procedure Growth Status 09/20/17 11:32 Nasal Washing Influenza Types A,B Antigen (LAURIE) - Final NEGATIVE FOR FLU A AND B ANTIGEN.... Complete Laboratory Tests Test 09/20/17 20:29 09/20/17 23:13 09/21/17 05:46 Blood Gas Puncture Site LT RADIAL RT RADIAL RT RADIAL Blood Gas Patient Temperature 98.6 98.6 98.6 Blood Gas HCO3 36 mmol/L (22-26) 34 mmol/L (22-26) 32 mmol/L (22-26) Blood Gas Base Excess 7.5 mmol/L (-2-2) 7.0 mmol/L (-2-2) 9.0 mmol/L (-2-2) Blood Gas Oxygen Saturation 93 % (90-100) 97 % (90-100) 93 % (90-100) Arterial Blood pH 7.15 (7.380-7.420) 7.25 (7.380-7.420) 7.54 (7.380-7.420) Arterial Blood Partial Pressure CO2 108 mmHg (38-42) 81 mmHg (38-42) 38 mmHg (38-42) Arterial Blood Partial Pressure O2 97 mmHg (61-120) 204 mmHg (61-120) 63 mmHg (61-120) Arterial Blood Oxygen Content 18.4 Vol % (12.0-20.0) 18.9 Vol % (12.0-20.0) 17.6 Vol % (12.0-20.0) Arterial Blood Carboxyhemoglobin 1.5 % (0-4) 1.6 % (0-4) 1.6 % (0-4) Arterial Blood Methemoglobin 1.1 % (0-2) 1.0 % (0-2) 1.0 % (0-2) Blood Gas Hemoglobin 14.0 G/DL (12.0-16.0) 13.6 G/DL (12.0-16.0) 13.4 G/DL (12.0-16.0) Oxygen Delivery Device BiPAP VENTILATOR VENT Blood Gas Ventilator Setting IPAP 10/ EPAP 5 SEE COMMENTS SEE COMMENT Blood Gas Inspired Oxygen 60 % 100 % 70 % Imaging Last 24 hours Impressions Chest X-Ray 09/20/17 1003 Signed Impressions: Service Date/Time: Wednesday, September 20, 2017 10:50 - CONCLUSION: Cardiomegaly. Some consolidation in the right lung base most likely atelectasis. Roni Shah MD Chest X-Ray 09/20/17 0000 Signed Impressions: Service Date/Time: Wednesday, September 20, 2017 22:10 - CONCLUSION: 1. Very limited study. 2. Tip of the endotracheal tube within the right mainstem bronchus. Suggest retracting it approximately 4 cm. 3. Bibasilar densities. This may be in part due to effusions. Vivek Sung Jr., MD Objective Remarks GENERAL: Morbidly obese female sedated and intubated SKIN: Cool and dry. HEAD: Atraumatic. Normocephalic. No temporal or scalp tenderness. EYES: Pupils equal round and reactive. No injection or drainage. ENT: Nose without bleeding. Orotracheally intubated NECK: Trachea midline. Unable to determine JVD CARDIOVASCULAR: Regular rate and rhythm without murmurs, gallops, or rubs. Heart sounds are distant RESPIRATORY: Decreased breath sounds in the bilateral lower base with mild expiratory wheezing anteriorly. GASTROINTESTINAL: Abdomen soft, non-tender, morbidly obese MUSCULOSKELETAL: Extremities without clubbing, cyanosis NEUROLOGICAL: Sedated and intubated female. On sedation hold moves all 4 extremities and follows commands A/P Assessment and Plan ASSESSMENT: Acute on chronic hypoxemic respiratory failure Bilateral pneumonia Underlying COPD with exacerbation Obesity hypoventilation syndrome and obstructive sleep apnea Anxiety/depression/panic attack Morbid obesity PLAN: - Mechanical ventilation PRVC mode. PEEP 12, FiO2 remains at 60% wean as tolerated to keep saturation more than 90% - No weaning until respiratory failure/hypoxemia improves - ABG and CXR daily. Chest x-ray today shows increasing bibasilar consolidation. ABG showing alkalosis, reduce minute ventilation - CT PE protocol-negative for PE shows bilateral consolidation - Discontinue ceftriaxone. Start cefepime 2 g IV every 8 hours, Levaquin 750 mg IV every 24 hours - Send blood cultures sputum culture - DuoNeb scheduled and when necessary - IV steroids - Benzodiazepines when necessary - Teds SCDs - Heparin drip DCd. On Lovenox 40 mg sq q12, Protonix Critical Care: The total critical care time was 35 minutes. Time to perform other separately billable procedures was not included in the critical care time. Ronny Knight MD Sep 21, 2017 15:22
[2017-09-21] MEDS: CEFEPIME INJ 2,000 MG in SODIUM CHLORIDE 0.9% INJ 100 ML IV SCH (17:02)
[2017-09-21] MEDS: LEVOFLOXACIN 750 MG PREMIX INJ 150 ML IV SCH (18:20)
[2017-09-22] VITALS (19 sets, daily range): BP systolic 122–167; BP diastolic 56–80; PULSE 59–70; RESP 14; TEMP 97.5–98.8; O2SAT 91–96
[2017-09-22] MEDS: CEFEPIME INJ 2,000 MG in SODIUM CHLORIDE 0.9% INJ 100 ML IV SCH ×3 (00:35→17:11)
[2017-09-22] MEDS: PROPOFOL 1000 MG/100 ML IV PRN ×9 (00:57→22:39)
[2017-09-22] MEDS: methylPREDNISolone SOD SUCC 125 MG/2 ML VIAL IV PUSH SCH ×4 (03:09→20:36)
[2017-09-22] MEDS: RESP: ALBUTEROL 2.5 MG/IPRATROPIUM 0.5 MG NEB (SCH) INH ×7 (03:14→23:45)
[2017-09-22] MEDS: SODIUM CHLOR 0.9% 1000 ML INJ 1,000 ML IV SCH ×2 (04:30→16:14)
[2017-09-22] MEDS: ENOXAPARIN SODIUM 40 MG/0.4 ML SYRINGE SQ SCH ×2 (08:53→22:01)
[2017-09-22] MEDS: AZITHROMYCIN 250 MG TAB PO SCH (08:53)
[2017-09-22] MEDS: PANTOPRAZOLE SOD 40 MG DELAYED RELEASE TAB PO SCH (08:53)
[2017-09-22] MEDS: SODIUM CHLORIDE 0.9% FLUSH 10 ML FLUSH IV FLUSH SCH ×2 (08:54→20:31)
--- NOTE | 2017-09-22 12:06 | HHI.CCPN ---
Subjective Remarks/Hospital Course 67-year-old unfortunate morbidly obese female with past medical history of COPD , history of being oxygen dependent, panic/anxiety/depression disorder who presented with shortness of breathing. Patient stated that shortness of breathing was abrupt and started yesterday. She stated that this was due to her panic attack. She did not think this was due to her COPD. Patient was oxygen dependent but was taken off of oxygen in May. She was told by her provider up in [place] that she was overdosing on oxygen and didn't need oxygen any longer. Previously she was on 4 L of oxygen. She has received some treatment in the emergency department with the BiPAP with some improvement of her respiratory distress. She was admitted to medical floor where she did radiated became severely hypercapnic and hypoxemic. She was transferred emergently to ICU and immediately intubated for respiratory failure. 09/21/17: Remains intubated sedated critically ill. FiO2 had been weaned to 60% PEEP remains at 10. On brief sedation hold able to follow commands 4. Chest x -ray shows bibasilar consolidation. Send sputum culture. DC ceftriaxone. Start cefepime 2 g IV every 8 hours, Levaquin 750 mg every 24 hours 09/22: remains intubated and hypoxic. becomes quite agitated when sedation vacation. cultures NGTD. off pathway. CXR today with worsening lung-space disease as well as left pleural effusion. effusion confirmed on bedside ultrasonography, however, relatively small area of posterior effusion and would be high risk to drain given super morbid obesity. Objective Vital Signs Date Time Temp Pulse Resp B/P (MAP) Pulse Ox O2 Delivery O2 Flow Rate FiO2 09/22/17 11:24 93 55 09/22/17 10:00 68 09/22/17 08:00 97.7 14 143/71 (95) 09/22/17 07:30 Mechanical Ventilator 09/20/17 19:26 5.00 Intake and Output 09/22/17 09/22/17 09/23/17 08:00 16:00 00:00 Intake Total 1404 ml 100 ml Output Total 975 ml Balance 429 ml 100 ml Result Diagram: 09/21/17 0432 09/21/17 0432 Other Results Microbiology Date/Time Source Procedure Growth Status 09/20/17 11:32 Nasal Washing Influenza Types A,B Antigen (LAURIE) - Final NEGATIVE FOR FLU A AND B ANTIGEN.... Complete Laboratory Tests Test 09/21/17 15:30 Blood Gas Puncture Site LT RADIAL Blood Gas Patient Temperature 98.6 Blood Gas HCO3 30 mmol/L (22-26) Blood Gas Base Excess 7.3 mmol/L (-2-2) Blood Gas Oxygen Saturation 92 % (90-100) Arterial Blood pH 7.58 (7.380-7.420) Arterial Blood Partial Pressure CO2 32 mmHg (38-42) Arterial Blood Partial Pressure O2 61 mmHg (61-120) Arterial Blood Oxygen Content 16.3 Vol % (12.0-20.0) Arterial Blood Carboxyhemoglobin 1.4 % (0-4) Arterial Blood Methemoglobin 1.0 % (0-2) Blood Gas Hemoglobin 12.6 G/DL (12.0-16.0) Oxygen Delivery Device VENTILATOR Blood Gas Ventilator Setting PRVC/AC Blood Gas Inspired Oxygen 55 % Imaging Last 24 hours Impressions Chest X-Ray 09/20/17 1003 Signed Impressions: Service Date/Time: Wednesday, September 20, 2017 10:50 - CONCLUSION: Cardiomegaly. Some consolidation in the right lung base most likely atelectasis. Roni Shah MD Chest X-Ray 09/20/17 0000 Signed Impressions: Service Date/Time: Wednesday, September 20, 2017 22:10 - CONCLUSION: 1. Very limited study. 2. Tip of the endotracheal tube within the right mainstem bronchus. Suggest retracting it approximately 4 cm. 3. Bibasilar densities. This may be in part due to effusions. Vivek Sung Jr., MD Objective Remarks GENERAL: super Morbidly obese female sedated and intubated SKIN: Cool and dry. HEAD: Atraumatic. Normocephalic. No temporal or scalp tenderness. EYES: Pupils equal round and reactive. No injection or drainage. ENT: Nose without bleeding. Orotracheally intubated NECK: Trachea midline. Unable to determine JVD CARDIOVASCULAR: Regular rate and rhythm. Heart sounds are distant RESPIRATORY: Decreased breath sounds in the bilateral lower base with mild expiratory wheezing anteriorly. GASTROINTESTINAL: Abdomen soft, non-tender, morbidly obese MUSCULOSKELETAL: Extremities without clubbing, cyanosis NEUROLOGICAL: Sedated and intubated female. On sedation hold moves all 4 extremities. becomes agitated, CAM+. does not follow commands today. A/P Assessment and Plan ASSESSMENT: Acute on chronic hypoxemic respiratory failure Bilateral pneumonia Underlying COPD with exacerbation Obesity hypoventilation syndrome and obstructive sleep apnea Anxiety/depression/panic attack Super Morbid obesity Agitated Delirium Hypertension PLAN: - Mechanical ventilation PRVC mode. PEEP 8, FiO2 remains at 55% wean as tolerated to keep saturation more than 88% - ABG today. - CT PE protocol-negative for PE shows bilateral consolidation - continue cefepime 2 g IV every 8 hours, Levaquin 750 mg IV every 24 hours - f/u cultures, currently NGTD. - DuoNeb scheduled and when necessary - IV steroids - Benzodiazepines when necessary - Teds SCDs On Lovenox 40 mg sq q12, Protonix switch to precedex for sedation add zyprexa 10mg po q8hr for agitation add amlodipine 10mg daily for hypertension OVERALL IMPRESSION: life-threatening hypoxemia and agitated delirium. off pathway and very likely to from this degree of hypoxia and acute lung injury superimposed on chronic multifactorial lung disease. high liklihood of trach and permanent respiratory failure. remains critically ill off pathway; if we withdraw support, she would . Critical Care: The total critical care time was 32 minutes. Time to perform other separately billable procedures was not included in the critical care time. Richie Manley MD Sep 22, 2017 12:06
[2017-09-22 13:18] LABS: HEMATOCRIT 39.8 % (35.0-46.0); MEAN CELL VOLUME 80.2 FL (80.0-100.0); MEAN CORPUSCULAR HEMOGLOBIN 26.2 PG (27.0-34.0); MEAN CORPUSCULAR HGB CONC 32.7 % (32.0-36.0); MEAN PLATELET VOLUME 8.3 FL (7.0-11.0); PLATELET COUNT 320 TH/MM3 (150-450); RED BLOOD COUNT 4.96 MIL/MM3 (4.00-5.30); RED CELL DISTRIBUTION WIDTH 17.1 % (11.6-17.2); WHITE BLOOD COUNT 8.6 TH/MM3 (4.0-11.0)
[2017-09-22 14:16] LABS: CALCIUM 7.3 MG/DL (8.5-10.1); CREATININE 0.61 MG/DL (0.50-1.00); MAGNESIUM 1.8 MG/DL (1.5-2.5); PHOSPHORUS 3.4 MG/DL (2.5-4.9)
[2017-09-22] MEDS ORDERED: DEXMEDETOMIDINE INJ 200 MCG in SODIUM CHLORIDE 0.9% INJ 50 ML IV PRN (14:30)
[2017-09-22 14:43] LABS: CALCIUM-PROTEIN CORRECTED 8.1 MG/DL (8.5-10.1); TOTAL PROTEIN 5.7 GM/DL (6.4-8.2)
[2017-09-22] MEDS ORDERED: RASS Change Order XX ONE (15:30)
[2017-09-22] MEDS: LEVOFLOXACIN 750 MG PREMIX INJ 150 ML IV SCH (17:11)
[2017-09-22] MEDS: OLANZapine ODT 10 MG TAB PO SCH ×2 (17:11→22:01)
[2017-09-22] MEDS: DEXMEDETOMIDINE INJ 1,000 MCG in SODIUM CHLOR 0.9% 250 ML INJ 240 ML IV PRN (20:31)
[2017-09-23] VITALS (22 sets, daily range): BP systolic 107–179; BP diastolic 54–89; PULSE 56–74; RESP 11–16; TEMP 98.4–100; O2SAT 92–97
[2017-09-23] MEDS: SODIUM CHLOR 0.9% 1000 ML INJ 1,000 ML IV SCH (00:30)
[2017-09-23] MEDS: CEFEPIME INJ 2,000 MG in SODIUM CHLORIDE 0.9% INJ 100 ML IV SCH ×3 (01:00→17:36)
[2017-09-23] MEDS: RESP: ALBUTEROL 2.5 MG/IPRATROPIUM 0.5 MG NEB (SCH) INH ×6 (03:26→23:55)
[2017-09-23] MEDS: methylPREDNISolone SOD SUCC 125 MG/2 ML VIAL IV PUSH SCH ×2 (03:27→08:24)
[2017-09-23] MEDS: DEXMEDETOMIDINE INJ 1,000 MCG in SODIUM CHLOR 0.9% 250 ML INJ 240 ML IV PRN (04:17)
[2017-09-23] MEDS: OLANZapine ODT 10 MG TAB PO SCH ×3 (05:13→21:13)
[2017-09-23] MEDS: PROPOFOL 1000 MG/100 ML IV PRN ×3 (05:14→22:52)
[2017-09-23 05:41] LABS: BICARBONATE 25.3 MEQ/L (21.0-32.0); CALCIUM 7.7 MG/DL (8.5-10.1); CREATININE 0.74 MG/DL (0.50-1.00)
[2017-09-23] MEDS: PANTOPRAZOLE SOD 40 MG DELAYED RELEASE TAB PO SCH (08:24)
[2017-09-23] MEDS: AZITHROMYCIN 250 MG TAB PO SCH (08:24)
[2017-09-23] MEDS: ENOXAPARIN SODIUM 40 MG/0.4 ML SYRINGE SQ SCH ×2 (08:25→21:12)
[2017-09-23] MEDS: SODIUM CHLORIDE 0.9% FLUSH 10 ML FLUSH IV FLUSH SCH ×2 (08:25→21:12)
--- NOTE | 2017-09-23 08:56 | HHI.CCPN ---
Subjective Remarks/Hospital Course 67-year-old unfortunate morbidly obese female with past medical history of COPD , history of being oxygen dependent, panic/anxiety/depression disorder who presented with shortness of breathing. Patient stated that shortness of breathing was abrupt and started yesterday. She stated that this was due to her panic attack. She did not think this was due to her COPD. Patient was oxygen dependent but was taken off of oxygen in May. She was told by her provider up in [place] that she was overdosing on oxygen and didn't need oxygen any longer. Previously she was on 4 L of oxygen. She has received some treatment in the emergency department with the BiPAP with some improvement of her respiratory distress. She was admitted to medical floor where she did radiated became severely hypercapnic and hypoxemic. She was transferred emergently to ICU and immediately intubated for respiratory failure. 09/21/17: Remains intubated sedated critically ill. FiO2 had been weaned to 60% PEEP remains at 10. On brief sedation hold able to follow commands 4. Chest x -ray shows bibasilar consolidation. Send sputum culture. DC ceftriaxone. Start cefepime 2 g IV every 8 hours, Levaquin 750 mg every 24 hours 09/22: remains intubated and hypoxic. becomes quite agitated when sedation vacation. cultures NGTD. off pathway. CXR today with worsening lung-space disease as well as left pleural effusion. effusion confirmed on bedside ultrasonography, however, relatively small area of posterior effusion and would be high risk to drain given super morbid obesity. 09/23: Unable to recruit bases with conventional ventilation modes, will convert to APRV. Gas exchange markedly impaired at present. Objective Vital Signs Date Time Temp Pulse Resp B/P (MAP) Pulse Ox O2 Delivery O2 Flow Rate FiO2 09/23/17 07:31 94 55 09/23/17 06:00 60 09/23/17 04:00 99.7 14 155/87 (109) 09/22/17 19:33 Ventilator 09/20/17 19:26 5.00 Intake and Output 09/23/17 09/23/17 09/24/17 08:00 16:00 00:00 Intake Total 1220 ml Output Total 1250 ml Balance -30 ml Result Diagram: 09/22/17 1245 09/23/17 0506 Other Results Microbiology Date/Time Source Procedure Growth Status 09/20/17 11:32 Nasal Washing Influenza Types A,B Antigen (LAURIE) - Final NEGATIVE FOR FLU A AND B ANTIGEN.... Complete Laboratory Tests Test 09/22/17 12:02 Blood Gas Puncture Site LT RADIAL Blood Gas Patient Temperature 98.6 Blood Gas HCO3 28 mmol/L (22-26) Blood Gas Base Excess 4.3 mmol/L (-2-2) Blood Gas Oxygen Saturation 92 % (90-100) Arterial Blood pH 7.46 (7.380-7.420) Arterial Blood Partial Pressure CO2 40 mmHg (38-42) Arterial Blood Partial Pressure O2 73 mmHg (61-120) Arterial Blood Oxygen Content 17.5 Vol % (12.0-20.0) Arterial Blood Carboxyhemoglobin 1.2 % (0-4) Arterial Blood Methemoglobin 1.1 % (0-2) Blood Gas Hemoglobin 13.5 G/DL (12.0-16.0) Oxygen Delivery Device VENTILATOR Blood Gas Ventilator Setting PRVC/AC Blood Gas Inspired Oxygen 55 % Imaging Last 24 hours Impressions Chest X-Ray 09/20/17 1003 Signed Impressions: Service Date/Time: Wednesday, September 20, 2017 10:50 - CONCLUSION: Cardiomegaly. Some consolidation in the right lung base most likely atelectasis. Roni Shah MD Chest X-Ray 09/20/17 0000 Signed Impressions: Service Date/Time: Wednesday, September 20, 2017 22:10 - CONCLUSION: 1. Very limited study. 2. Tip of the endotracheal tube within the right mainstem bronchus. Suggest retracting it approximately 4 cm. 3. Bibasilar densities. This may be in part due to effusions. Vivek Sung Jr., MD Objective Remarks GENERAL: super Morbidly obese female sedated and intubated SKIN: Cool and dry. HEAD: Atraumatic. Normocephalic. No temporal or scalp tenderness. EYES: Pupils equal round and reactive. No injection or drainage. ENT: Nose without bleeding. NECK: Trachea midline. Orally intubated. CARDIOVASCULAR: Regular rate and rhythm. Heart sounds are distant. No m,r. RESPIRATORY: Decreased breath sounds in the bilateral bases with expiratory wheezing anteriorly. GASTROINTESTINAL: Abdomen soft, non-tender, morbidly obese, quiet. No guarding. MUSCULOSKELETAL: Extremities without clubbing, cyanosis. 1+ edema. NEUROLOGICAL: Sedated and intubated female. On sedation hold moves all 4 extremities. becomes agitated, CAM+. does not follow commands but nods head. A/P Assessment and Plan ASSESSMENT: Acute on chronic hypoxemic respiratory failure Bilateral pneumonia Underlying COPD with exacerbation Obesity hypoventilation syndrome and obstructive sleep apnea Anxiety/depression/panic attack Super Morbid obesity Agitated Delirium Hypertension PLAN: - Mechanical ventilation APRV mode, FiO2 remains at 55% wean as tolerated to keep saturation more than 88% - ABG today after 1 hours - CT PE protocol-negative for PE shows bilateral consolidation - continue cefepime 2 g IV every 8 hours, Levaquin 750 mg IV every 24 hours - f/u cultures, currently NGTD. - DuoNeb scheduled and when necessary - IV steroids, taper. - Benzodiazepines when necessary - Teds SCDs On Lovenox 40 mg sq q12, Protonix switch to precedex for sedation add zyprexa 10mg po q8hr for agitation add amlodipine 10mg daily for hypertension SSI for euglycemia. Lasix OVERALL IMPRESSION: Critically ill with life-threatening hypoxemia. Off pathway and very likely to from this degree of hypoxia and acute lung injury superimposed on chronic multifactorial lung disease. High likelihood of trach and permanent respiratory failure. Critical Care 40 mins aside from procedures. Teddy Jerry MD Sep 23, 2017 08:56
[2017-09-23] MEDS ORDERED: GLUCAGON 1 MG/ML VIAL OTHER PRN (09:00)
[2017-09-23] MEDS ORDERED: DEXTROSE 50% IN WATER 50 ML VIAL(D50) IV PUSH PRN (09:00)
[2017-09-23 09:34] LABS: HEMATOCRIT 46.8 % (35.0-46.0); MEAN CELL VOLUME 79.9 FL (80.0-100.0); MEAN CORPUSCULAR HEMOGLOBIN 25.6 PG (27.0-34.0); MEAN CORPUSCULAR HGB CONC 32.1 % (32.0-36.0); PLATELET COUNT 296 TH/MM3 (150-450); RED BLOOD COUNT 5.86 MIL/MM3 (4.00-5.30); RED CELL DISTRIBUTION WIDTH 17.3 % (11.6-17.2); WHITE BLOOD COUNT 9.7 TH/MM3 (4.0-11.0)
[2017-09-23] MEDS: FUROSEMIDE 40 MG/4 ML VIAL IV PUSH SCH ×2 (11:18→17:37)
[2017-09-23] MEDS: INSULIN ASPART SUPPLEMENTAL SCALE SQ SCH ×3 (12:00→17:37)
[2017-09-23] MEDS: LEVOFLOXACIN 750 MG PREMIX INJ 150 ML IV SCH (17:36)
--- NOTE | 2017-09-23 17:36 | PD.PROCEDR ---
Procedure Note Procedure DX: Poor venous access OP: Insertion Central Venous Line (13883) Procedure: Time out. Right chest prepped and draped. Right subclavian vein cannulated with 20 gauge spinal needle. Wire easily advanced and catheter passed over wire to 18 cm. Lumens aspirated and flushed. Line sutured to skin in three places to assure no dislocation. Patient is super-morbidly obese and this is her lifeline - can not afford to have it accidently removed. Dressing applied. CXR ordered will review. Teddy Jerry MD Sep 23, 2017 17:36
--- NOTE | 2017-09-23 18:41 | RADRPT ---
EXAM DATE/TIME: 09/23/2017 18:22 [facility] COMPARISON: CHEST SINGLE AP, September 21, 2017, 5:30. INDICATIONS : Central line placement. MEDICAL HISTORY : Chronic obstructive pulmonary disease. SURGICAL HISTORY : Appendectomy. Cholecystectomy. ENCOUNTER: Subsequent ACUITY: 3 days PAIN SCORE: Non-responsive. LOCATION: Right chest FINDINGS: A single view of the chest demonstrates cardiomegaly with bibasilar airspace disease. Increased pulmo nary vascularity. Right subclavian central line with tip in the SVC. No definite pneumothorax. There may be a kink within the catheter at the mid clavicular line. Osseous structures are intact. CONCLUSION: 1. Cardiomegaly with bibasilar airspace disease. This has improved. 2. Right subclavian central line. Possible kink at the midclavicular line Jad Vanegas MD on September 23, 2017 at 18:38 Board Certified Radiologist. This report was verified electronically.
[2017-09-23] MEDS: methylPREDNISolone SOD SUCC 40 MG/1 ML VIAL IV PUSH SCH (21:12)
[2017-09-24] VITALS (18 sets, daily range): BP systolic 75–141; BP diastolic 45–88; PULSE 61–85; RESP 11–17; TEMP 97–99.1; O2SAT 95–99
[2017-09-24] MEDS: CEFEPIME INJ 2,000 MG in SODIUM CHLORIDE 0.9% INJ 100 ML IV SCH ×2 (01:19→08:30)
[2017-09-24] MEDS: PROPOFOL 1000 MG/100 ML IV PRN ×5 (04:07→23:30)
[2017-09-24] MEDS: RESP: ALBUTEROL 2.5 MG/IPRATROPIUM 0.5 MG NEB (SCH) INH ×4 (04:29→15:06)
[2017-09-24 05:56] LABS: HEMOGLOBIN 13.6 GM/DL (11.6-15.3); MEAN CELL VOLUME 79.9 FL (80.0-100.0); MEAN CORPUSCULAR HEMOGLOBIN 25.3 PG (27.0-34.0); MEAN CORPUSCULAR HGB CONC 31.7 % (32.0-36.0); MEAN PLATELET VOLUME 7.8 FL (7.0-11.0); PLATELET COUNT 283 TH/MM3 (150-450); RED BLOOD COUNT 5.38 MIL/MM3 (4.00-5.30); RED CELL DISTRIBUTION WIDTH 17.7 % (11.6-17.2)
--- NOTE | 2017-09-24 06:03 | RADRPT ---
EXAM DATE/TIME: 09/24/2017 04:21 [facility] COMPARISON: CHEST SINGLE AP, September 23, 2017, 18:22. INDICATIONS : Evaluate for pneumonia- Respiratory failure MEDICAL HISTORY : Chronic obstructive pulmonary disease. SURGICAL HISTORY : Appendectomy. Cholecystectomy. ENCOUNTER: Subsequent ACUITY: 4 - 6 days PAIN SCORE: Non-responsive. LOCATION: Bilateral chest FINDINGS: Stable ETT and NGT with tip omitted from the image. Focal sharp angulation in the right subclavian li ne is no longer visualized. Subclavian catheter terminates in the central SVC. A bibasilar airspace d isease. Mild interstitial prominence. Persistent enlargement of the cardiac silhouette. Remainder of the exam is unchanged. CONCLUSION: 1. Tubes and lines, as above. 2. Cardiomegaly with mild positive fluid balance. 3. Stable mild bibasilar airspace disease. Tad Bar MD on September 24, 2017 at 5:59 Board Certified Radiologist. This report was verified electronically.
[2017-09-24] MEDS: OLANZapine ODT 10 MG TAB PO SCH ×3 (06:22→20:35)
[2017-09-24] MEDS: INSULIN ASPART SUPPLEMENTAL SCALE SQ SCH ×4 (06:23→18:07)
[2017-09-24 06:26] LABS: CALCIUM 7.4 MG/DL (8.5-10.1); CREATININE 0.86 MG/DL (0.50-1.00)
[2017-09-24 06:41] LABS: CALCIUM-PROTEIN CORRECTED 8.1 MG/DL (8.5-10.1); TOTAL PROTEIN 5.8 GM/DL (6.4-8.2)
[2017-09-24] MEDS: SODIUM CHLORIDE 0.9% FLUSH 10 ML FLUSH IV FLUSH SCH ×2 (08:30→20:34)
[2017-09-24] MEDS: PANTOPRAZOLE SOD 40 MG DELAYED RELEASE TAB PO SCH (08:31)
[2017-09-24] MEDS: methylPREDNISolone SOD SUCC 40 MG/1 ML VIAL IV PUSH SCH ×2 (08:31→20:35)
[2017-09-24] MEDS: AZITHROMYCIN 250 MG TAB PO SCH (08:31)
[2017-09-24] MEDS: FUROSEMIDE 40 MG/4 ML VIAL IV PUSH SCH ×2 (09:00→18:00)
--- NOTE | 2017-09-24 10:13 | HHI.CCPN ---
Subjective Remarks/Hospital Course 67-year-old unfortunate morbidly obese female with past medical history of COPD , history of being oxygen dependent, panic/anxiety/depression disorder who presented with shortness of breathing. Patient stated that shortness of breathing was abrupt and started yesterday. She stated that this was due to her panic attack. She did not think this was due to her COPD. Patient was oxygen dependent but was taken off of oxygen in May. She was told by her provider up in [place] that she was overdosing on oxygen and didn't need oxygen any longer. Previously she was on 4 L of oxygen. She has received some treatment in the emergency department with the BiPAP with some improvement of her respiratory distress. She was admitted to medical floor where she did radiated became severely hypercapnic and hypoxemic. She was transferred emergently to ICU and immediately intubated for respiratory failure. 09/21/17: Remains intubated sedated critically ill. FiO2 had been weaned to 60% PEEP remains at 10. On brief sedation hold able to follow commands 4. Chest x -ray shows bibasilar consolidation. Send sputum culture. DC ceftriaxone. Start cefepime 2 g IV every 8 hours, Levaquin 750 mg every 24 hours 09/22: remains intubated and hypoxic. becomes quite agitated when sedation vacation. cultures NGTD. off pathway. CXR today with worsening lung-space disease as well as left pleural effusion. effusion confirmed on bedside ultrasonography, however, relatively small area of posterior effusion and would be high risk to drain given super morbid obesity. 09/23: Unable to recruit bases with conventional ventilation modes, will convert to APRV. Gas exchange markedly impaired at present. 09/24: Finally getting lung bases recruited on APRV with mean airway pressure almost 30. Needs additional diuresis. Suspect chronic pulmonary artery hypertension. Objective Vital Signs Date Time Temp Pulse Resp B/P (MAP) Pulse Ox O2 Delivery O2 Flow Rate FiO2 09/24/17 07:47 96 35 09/24/17 06:00 66 09/24/17 04:00 99.0 17 103/59 (74) 09/22/17 19:33 Ventilator 09/20/17 19:26 5.00 Intake and Output 09/24/17 09/24/17 09/25/17 08:00 16:00 00:00 Intake Total 120 ml Output Total 900 ml Balance -780 ml Result Diagram: 09/24/17 0530 09/24/17 0530 Other Results Microbiology Date/Time Source Procedure Growth Status 09/21/17 15:40 Sputum Endotracheal Gram Stain - Final Complete 09/21/17 15:40 Sputum Endotracheal Sputum Culture - Final LIGHT GROWTH NORMAL RESPIRATORY WILIAN Complete Laboratory Tests Test 09/23/17 10:30 09/23/17 15:00 Blood Gas Puncture Site RT RADIAL CENTRAL LINE Blood Gas Patient Temperature 98.6 98.6 Blood Gas HCO3 26 mmol/L (22-26) Blood Gas Base Excess 2.0 mmol/L (-2-2) Blood Gas Oxygen Saturation 94 % (90-100) Arterial Blood pH 7.45 (7.380-7.420) Arterial Blood Partial Pressure CO2 37 mmHg (38-42) Arterial Blood Partial Pressure O2 85 mmHg (61-120) Arterial Blood Oxygen Content 19.7 Vol % (12.0-20.0) Arterial Blood Carboxyhemoglobin 1.1 % (0-4) Arterial Blood Methemoglobin 1.1 % (0-2) Blood Gas Hemoglobin 14.9 G/DL (12.0-16.0) Oxygen Delivery Device VENTILATOR VENTILATOR Blood Gas Ventilator Setting Blood Gas Inspired Oxygen 50 % 40 % Venous Blood pH 7.44 (7.360-7.400) Venous Blood Partial Pressure CO2 43 mmHg (44-48) Venous Blood Partial Pressure O2 39 mmHg (35-40) Venous Blood HCO3 29 mmol/L (22-26) Venous Blood Oxygen Saturation 68 % (70-76) Venous Blood Oxygen Content 14.4 Vol % (9.0-17.0) Venous Blood Base Excess 5.1 mmol/L (-2-2) Imaging Last 24 hours Impressions Chest X-Ray 09/20/17 1003 Signed Impressions: Service Date/Time: Wednesday, September 20, 2017 10:50 - CONCLUSION: Cardiomegaly. Some consolidation in the right lung base most likely atelectasis. Roni Shah MD Chest X-Ray 09/20/17 0000 Signed Impressions: Service Date/Time: Wednesday, September 20, 2017 22:10 - CONCLUSION: 1. Very limited study. 2. Tip of the endotracheal tube within the right mainstem bronchus. Suggest retracting it approximately 4 cm. 3. Bibasilar densities. This may be in part due to effusions. Vivek Sung Jr., MD Objective Remarks GENERAL: Super morbidly obese female sedated and intubated SKIN: Cool and dry. HEAD: Atraumatic. Normocephalic. No temporal or scalp tenderness. EYES: Pupils equal round and reactive. No injection or drainage. ENT: Nose without bleeding. NECK: Trachea midline. Orally intubated. CARDIOVASCULAR: Regular rate and rhythm. Heart sounds are distant. No m,r. RESPIRATORY: Decreased breath sounds in the bilateral bases with expiratory wheezing anteriorly. GASTROINTESTINAL: Abdomen soft, non-tender, morbidly obese, quiet. No guarding. MUSCULOSKELETAL: Extremities without clubbing, cyanosis. 1+ edema. NEUROLOGICAL: Sedated and intubated female. On sedation hold moves all 4 extremities. Follows commands, gestures her intentions. A/P Assessment and Plan ASSESSMENT: Acute on chronic hypoxemic respiratory failure Bilateral pneumonia Underlying COPD with exacerbation Obesity hypoventilation syndrome and obstructive sleep apnea Anxiety/depression/panic attack Super Morbid obesity Agitated Delirium Hypertension PLAN: - Mechanical ventilation APRV mode, FiO2 remains at 45% wean as tolerated to keep saturation more than 88% - ABG. - CT PE protocol-negative for PE shows bilateral consolidation - continue cefepime 2 g IV every 8 hours, Levaquin 750 mg IV every 24 hours -> d /c antibiotics, sputum clean. - f/u cultures, currently NGTD. - DuoNeb scheduled and when necessary - IV steroids, taper. - Benzodiazepines when necessary - Teds SCDs On Lovenox 40 mg sq q12, Protonix switch to precedex for sedation when close to extubating. add zyprexa 10mg po q8hr for agitation add amlodipine 10mg daily for hypertension SSI for euglycemia. Lasix bid. Increase Peak pressure to 35. OVERALL IMPRESSION: Critically ill with life-threatening hypoxemia. Off pathway and high risk of from this degree of hypoxia and acute lung injury superimposed on chronic multifactorial lung disease. High likelihood of trach and permanent vent dependent respiratory failure. Critical Care 42 mins aside from procedures. Teddy Jerry MD Sep 24, 2017 10:12
[2017-09-24] MEDS ORDERED: POTASSIUM PHOSPHATE INJ 30 MMOL in SODIUM CHLOR 0.9% 250 ML INJ 250 ML IV PRN (10:15)
[2017-09-24] MEDS ORDERED: SODIUM PHOSPHATE INJ 30 MMOL in SODIUM CHLOR 0.9% 250 ML INJ 240 ML IV PRN (10:15)
[2017-09-24] MEDS ORDERED: POTASSIUM CHLOR 40 MEQ PREMIX 100 ML IV PRN ×2 (10:15)
[2017-09-24] MEDS ORDERED: POTASSIUM PHOSPHATE MONOBASIC 500 MG TAB PO/TUBE PRN (10:15)
[2017-09-24] MEDS ORDERED: DOBUTamine INJ 500 MG in DEXTROSE 5% IN WATER INJ 210 ML IV PRN ×2 (10:15)
[2017-09-24] MEDS ORDERED: MAGNESIUM SULFATE INJ 4 GM in SODIUM CHLORIDE 0.9% INJ 92 ML IV PRN (10:15)
[2017-09-24] MEDS ORDERED: MAGNESIUM OXIDE 400 MG TAB PO PRN (10:15)
[2017-09-24] MEDS ORDERED: POTASSIUM CHLORIDE 25 MEQ EFFERVESCENT TAB PO PRN (10:15)
[2017-09-24] MEDS ORDERED: POTASSIUM CHLOR 20 MEQ PREMIX 100 ML IV PRN ×2 (10:15)
[2017-09-24] MEDS ORDERED: MAGNESIUM SULFATE INJ 2 GM in SODIUM CHLORIDE 0.9% INJ 96 ML IV PRN (10:15)
[2017-09-24] MEDS ORDERED: POTASSIUM PHOSPHATE MONOBASIC 500 MG TAB PO PRN (10:15)
[2017-09-24] MEDS: ENOXAPARIN SODIUM 40 MG/0.4 ML SYRINGE SQ SCH ×2 (10:48→20:35)
[2017-09-24] MEDS: LORazepam 2 MG/ML VIAL IV PUSH PRN ×2 (12:29→20:37)
[2017-09-24 12:49] LABS: MAGNESIUM 2.2 MG/DL (1.5-2.5); PHOSPHORUS 4.3 MG/DL (2.5-4.9)
[2017-09-24 12:51] LABS: TROPONIN I LESS THAN 0.02 NG/ML (0.02-0.05)
[2017-09-25] VITALS (19 sets, daily range): BP systolic 101–171; BP diastolic 61–79; PULSE 70–93; RESP 11–18; TEMP 97.9–99.3; O2SAT 93–100
[2017-09-25] MEDS: INSULIN ASPART SUPPLEMENTAL SCALE SQ SCH ×5 (00:33→23:55)
[2017-09-25] MEDS: PROPOFOL 1000 MG/100 ML IV PRN ×4 (03:49→21:04)
[2017-09-25 04:20] LABS: HEMATOCRIT 40.9 % (35.0-46.0); MEAN CELL VOLUME 78.8 FL (80.0-100.0); MEAN CORPUSCULAR HGB CONC 31.7 % (32.0-36.0); MEAN PLATELET VOLUME 7.7 FL (7.0-11.0); PLATELET COUNT 248 TH/MM3 (150-450); RED BLOOD COUNT 5.19 MIL/MM3 (4.00-5.30); RED CELL DISTRIBUTION WIDTH 17.6 % (11.6-17.2); WHITE BLOOD COUNT 10.2 TH/MM3 (4.0-11.0)
[2017-09-25 04:46] LABS: BICARBONATE 28.9 MEQ/L (21.0-32.0); CALCIUM 7.6 MG/DL (8.5-10.1); CREATININE 0.89 MG/DL (0.50-1.00)
--- NOTE | 2017-09-25 05:24 | RADRPT ---
EXAM DATE/TIME: 09/25/2017 04:41 [facility] COMPARISON: CHEST SINGLE AP, September 24, 2017, 4:21. INDICATIONS : Short of breath. MEDICAL HISTORY : Chronic obstructive pulmonary disease. SURGICAL HISTORY : Cholecystectomy. Appendectomy. ENCOUNTER: Subsequent ACUITY: 3 days PAIN SCORE: 0/10 LOCATION: Bilateral chest FINDINGS: The examination was performed supine in the LPO position. Endotracheal tube tip well above the jodie a. Gastric tube traverses the [id number]. The location of the tip of the subclavian catheter is not well seen. There is consolidation in the left lower lung with loss of delineation of the left he midiaphragm, similar to prior. There is diffuse opacity in the right thorax related to positioning. CONCLUSION: Persistent left lower lung consolidation. The right lung cannot be assessed due to superimposed opac ities related to this. Vivek Rajput MD on September 25, 2017 at 5:20 Board Certified Radiologist. This report was verified electronically.
[2017-09-25] MEDS: OLANZapine ODT 10 MG TAB PO SCH ×3 (05:27→21:04)
[2017-09-25] MEDS: RESP: ALBUTEROL 2.5 MG/3 ML NEB (PRN) INH ×2 (08:40→20:12)
[2017-09-25] MEDS: FUROSEMIDE 40 MG/4 ML VIAL IV PUSH SCH (09:00)
[2017-09-25] MEDS: SODIUM CHLORIDE 0.9% FLUSH 10 ML FLUSH IV FLUSH SCH ×2 (09:00→21:00)
[2017-09-25] MEDS: PANTOPRAZOLE SOD 40 MG DELAYED RELEASE TAB PO SCH (09:00)
[2017-09-25] MEDS: methylPREDNISolone SOD SUCC 40 MG/1 ML VIAL IV PUSH SCH (09:21)
[2017-09-25] MEDS: ENOXAPARIN SODIUM 40 MG/0.4 ML SYRINGE SQ SCH (09:21)
[2017-09-25] MEDS: PANTOPRAZOLE SODIUM 40 MG VIAL IV PUSH SCH (10:00)
--- NOTE | 2017-09-25 10:56 | HHI.CCPN ---
Subjective Remarks/Hospital Course 67-year-old unfortunate morbidly obese female with past medical history of COPD , history of being oxygen dependent, panic/anxiety/depression disorder who presented with shortness of breathing. Patient stated that shortness of breathing was abrupt and started yesterday. She stated that this was due to her panic attack. She did not think this was due to her COPD. Patient was oxygen dependent but was taken off of oxygen in May. She was told by her provider up in [place] that she was overdosing on oxygen and didn't need oxygen any longer. Previously she was on 4 L of oxygen. She has received some treatment in the emergency department with the BiPAP with some improvement of her respiratory distress. She was admitted to medical floor where she did radiated became severely hypercapnic and hypoxemic. She was transferred emergently to ICU and immediately intubated for respiratory failure. 09/21/17: Remains intubated sedated critically ill. FiO2 had been weaned to 60% PEEP remains at 10. On brief sedation hold able to follow commands 4. Chest x -ray shows bibasilar consolidation. Send sputum culture. DC ceftriaxone. Start cefepime 2 g IV every 8 hours, Levaquin 750 mg every 24 hours 09/22: remains intubated and hypoxic. becomes quite agitated when sedation vacation. cultures NGTD. off pathway. CXR today with worsening lung-space disease as well as left pleural effusion. effusion confirmed on bedside ultrasonography, however, relatively small area of posterior effusion and would be high risk to drain given super morbid obesity. 09/23: Unable to recruit bases with conventional ventilation modes, will convert to APRV. Gas exchange markedly impaired at present. 09/24: Finally getting lung bases recruited on APRV with mean airway pressure almost 30. Needs additional diuresis. Suspect chronic pulmonary artery hypertension. 09/25: Will try to wean but may need tracheostomy. Diuresis complete, now azotemia. Objective Vital Signs Date Time Temp Pulse Resp B/P (MAP) Pulse Ox O2 Delivery O2 Flow Rate FiO2 09/25/17 08:00 78 09/25/17 08:00 98.5 11 139/79 (99) 95 09/25/17 08:00 30 09/22/17 19:33 Ventilator Intake and Output 09/25/17 09/25/17 09/26/17 08:00 16:00 00:00 Intake Total 497 ml Output Total 275 ml Balance 222 ml Result Diagram: 09/25/17 0400 09/25/17 0400 Other Results Laboratory Tests Test 09/25/17 08:06 Blood Gas Puncture Site IV Blood Gas Patient Temperature 98.6 Venous Blood pH 7.42 (7.360-7.400) Venous Blood Partial Pressure CO2 45 mmHg (44-48) Venous Blood Partial Pressure O2 41 mmHg (35-40) Venous Blood HCO3 28 mmol/L (22-26) Venous Blood Oxygen Saturation 69 % (70-76) Venous Blood Oxygen Content 13.3 Vol % (9.0-17.0) Venous Blood Base Excess 4.1 mmol/L (-2-2) Oxygen Delivery Device VENTILATOR Blood Gas Ventilator Setting SEE COMMENT Blood Gas Inspired Oxygen 35 % Imaging Last 24 hours Impressions Chest X-Ray 09/20/17 1003 Signed Impressions: Service Date/Time: Wednesday, September 20, 2017 10:50 - CONCLUSION: Cardiomegaly. Some consolidation in the right lung base most likely atelectasis. Roni Shah MD Chest X-Ray 09/20/17 0000 Signed Impressions: Service Date/Time: Wednesday, September 20, 2017 22:10 - CONCLUSION: 1. Very limited study. 2. Tip of the endotracheal tube within the right mainstem bronchus. Suggest retracting it approximately 4 cm. 3. Bibasilar densities. This may be in part due to effusions. Vivek Sung Jr., MD Objective Remarks GENERAL: Super morbidly obese female sedated and intubated SKIN: Cool and dry. HEAD: Atraumatic. Normocephalic. No temporal or scalp tenderness. EYES: Pupils equal round and reactive. No injection or drainage. ENT: Nose without bleeding. NECK: Trachea midline. Orally intubated. CARDIOVASCULAR: Regular rate and rhythm. Heart sounds are distant. No m,r. RESPIRATORY: Improved breath sounds bases, clear. GASTROINTESTINAL: Abdomen soft, non-tender, morbidly obese, quiet. No guarding. MUSCULOSKELETAL: Extremities without clubbing, cyanosis. tr+ edema. NEUROLOGICAL: Sedated and intubated female. On sedation hold moves all 4 extremities. Follows commands, gestures her intentions. A/P Assessment and Plan ASSESSMENT: Acute on chronic hypoxemic respiratory failure Bilateral pneumonia Underlying COPD with exacerbation Obesity hypoventilation syndrome and obstructive sleep apnea Anxiety/depression/panic attack Super Morbid obesity Agitated Delirium Hypertension PLAN: - Mechanical ventilation APRV mode, FiO2 remains at 35% wean as tolerated to keep saturation more than 88% - ABG. - CT PE protocol-negative for PE shows bilateral consolidation - continue cefepime 2 g IV every 8 hours, Levaquin 750 mg IV every 24 hours -> d /c antibiotics, sputum clean. - f/u cultures, currently NGTD. - DuoNeb scheduled and when necessary - IV steroids, taper. - Benzodiazepines when necessary - Teds SCDs On Lovenox 40 mg sq q12, Protonix switch to precedex for sedation when close to extubating. add zyprexa 10mg po q8hr for agitation add amlodipine 10mg daily for hypertension SSI for euglycemia. Lasix bid. Increase Peak pressure to 35. OVERALL IMPRESSION: Critically ill with life-threatening hypoxemia. Off pathway and high risk of from this degree of hypoxia and acute lung injury superimposed on chronic multifactorial lung disease. High likelihood of trach and permanent vent dependent respiratory failure. May need LTAC. Critical Care 37 mins Teddy Jerry MD Sep 25, 2017 10:56
[2017-09-25] MEDS ORDERED: DOBUTamine INJ 500 MG in DEXTROSE 5% IN WATER INJ 210 ML IV PRN ×2 (11:15)
--- NOTE | 2017-09-25 12:47 | PD.WCN.NOT ---
Wound Consult Description: Wound consult ordered by Dr.Harmen RAI for old Abdominal incision Communicated with: Kelsea CEE [address] [place] [address], Dr.Harmen RAI Recommendation: 1) Cleanse Midline abdomen,Breast skin fold and Abdominal skin fold with normal saline pat dry. 2) Apply thick layer of Calazime cream to Skin folds BID 3) To ulcerated Midline scar apply calcium alginate to open areas cover with dry dressing. change every 5 days or as needed for exudate or dislodgement. Additional Information: Patient was seen today on by blog writer Kelsea CEE [address] [place] [address] as well as present with blog writer.Assessment finding patient has bilateral breast and Abdomen skin folds moisture related denuded skin cleanse with normal saline pat dry.Calazime applied in thick layer to all skin fold.Midline Abdomen has old scaring noted with scattered ulcerated areas measuring 1.3cm x 1.0cm x ~ 0.1cm will order imagine to R/O fistula .Wounds cleansed with normal saline pat scant dry bloody drainage noted to proximal (beefy red base) open wound no odor noted or signs and symptoms of infection.calcium alginate applied to open areas and covered with dry boarder gauze dated and signed. skin prep applied to intact hematoma on Right wrist. Phyllis Conway [facility] Sep 25, 2017 12:47
[2017-09-25] MEDS: LORazepam 2 MG/ML VIAL IV PUSH PRN (13:38)
[2017-09-25] MEDS: LACTATED RINGER'S 1000 ML INJ 1,000 ML IV SCH (17:41)
[2017-09-26] VITALS (22 sets, daily range): BP systolic 99–133; BP diastolic 57–68; PULSE 66–84; RESP 11–14; TEMP 98–98.4; O2SAT 91–97
[2017-09-26] MEDS: PROPOFOL 1000 MG/100 ML IV PRN ×7 (00:01→21:06)
[2017-09-26] MEDS: RESP: ALBUTEROL 2.5 MG/3 ML NEB (PRN) INH ×3 (03:06→15:30)
[2017-09-26] MEDS: LACTATED RINGER'S 1000 ML INJ 1,000 ML IV SCH ×3 (03:24→20:34)
[2017-09-26] MEDS: OLANZapine ODT 10 MG TAB PO SCH ×3 (05:51→21:06)
[2017-09-26 05:54] LABS: HEMATOCRIT 39.4 % (35.0-46.0); HEMOGLOBIN 12.6 GM/DL (11.6-15.3); MEAN CELL VOLUME 79.7 FL (80.0-100.0); MEAN CORPUSCULAR HEMOGLOBIN 25.4 PG (27.0-34.0); MEAN CORPUSCULAR HGB CONC 31.9 % (32.0-36.0); MEAN PLATELET VOLUME 8.3 FL (7.0-11.0); PLATELET COUNT 229 TH/MM3 (150-450); RED BLOOD COUNT 4.95 MIL/MM3 (4.00-5.30); RED CELL DISTRIBUTION WIDTH 17.7 % (11.6-17.2); WHITE BLOOD COUNT 11.8 TH/MM3 (4.0-11.0)
[2017-09-26] MEDS: INSULIN ASPART SUPPLEMENTAL SCALE SQ SCH ×3 (06:00→17:51)
--- NOTE | 2017-09-26 06:06 | RADRPT ---
EXAM DATE/TIME: 09/26/2017 05:14 [facility] COMPARISON: CHEST SINGLE AP, September 25, 2017, 4:41. INDICATIONS : Short of breath. MEDICAL HISTORY : Chronic obstructive pulmonary disease. SURGICAL HISTORY : Cholecystectomy. Appendectomy. ENCOUNTER: Subsequent ACUITY: 4 - 6 days PAIN SCORE: Non-responsive. LOCATION: Bilateral chest FINDINGS: Endotracheal tube tip is 5 mm above the edilberto. Gastric tube traverses the [id number]. A right s ubclavian catheter tip projects over the mid superior vena cava. Partially consolidated infiltrate i n the left lower lobe with loss of delineation left hemidiaphragm is similar to prior. The right fercho g is clear. CONCLUSION: 1. ET tube tip is 5 mm above the edilberto and needs to be withdrawn two centimeters. 2. Stable left lower lobe consolidation. Vivek Rajput MD on September 26, 2017 at 6:03 Board Certified Radiologist. This report was verified electronically.
[2017-09-26 06:08] LABS: BICARBONATE 30.5 MEQ/L (21.0-32.0); CREATININE 0.57 MG/DL (0.50-1.00)
[2017-09-26] MEDS: SODIUM CHLORIDE 0.9% FLUSH 10 ML FLUSH IV FLUSH SCH ×2 (10:42→20:34)
[2017-09-26] MEDS: PANTOPRAZOLE SODIUM 40 MG VIAL IV PUSH SCH (10:43)
[2017-09-26] MEDS: ENOXAPARIN SODIUM 40 MG/0.4 ML SYRINGE SQ SCH (10:43)
--- NOTE | 2017-09-26 12:36 | HHI.CCPN ---
Subjective Remarks/Hospital Course 67-year-old unfortunate morbidly obese female with past medical history of COPD , history of being oxygen dependent, panic/anxiety/depression disorder who presented with shortness of breathing. Patient stated that shortness of breathing was abrupt and started yesterday. She stated that this was due to her panic attack. She did not think this was due to her COPD. Patient was oxygen dependent but was taken off of oxygen in May. She was told by her provider up in [place] that she was overdosing on oxygen and didn't need oxygen any longer. Previously she was on 4 L of oxygen. She has received some treatment in the emergency department with the BiPAP with some improvement of her respiratory distress. She was admitted to medical floor where she did radiated became severely hypercapnic and hypoxemic. She was transferred emergently to ICU and immediately intubated for respiratory failure. 09/21/17: Remains intubated sedated critically ill. FiO2 had been weaned to 60% PEEP remains at 10. On brief sedation hold able to follow commands 4. Chest x -ray shows bibasilar consolidation. Send sputum culture. DC ceftriaxone. Start cefepime 2 g IV every 8 hours, Levaquin 750 mg every 24 hours 09/22: remains intubated and hypoxic. becomes quite agitated when sedation vacation. cultures NGTD. off pathway. CXR today with worsening lung-space disease as well as left pleural effusion. effusion confirmed on bedside ultrasonography, however, relatively small area of posterior effusion and would be high risk to drain given super morbid obesity. 09/23: Unable to recruit bases with conventional ventilation modes, will convert to APRV. Gas exchange markedly impaired at present. 09/24: Finally getting lung bases recruited on APRV with mean airway pressure almost 30. Needs additional diuresis. Suspect chronic pulmonary artery hypertension. 09/25: Will try to wean but may need tracheostomy. Diuresis complete, now azotemia. 09/26: No events over the night. Patient doing better, FiO2 down to 0.3, P high decreased to 30 this AM. Urine output low yesterday afternoon, gentle iv hydration started. Remains on light sedation due to agitation. Afebrile, off antibiotics. ROS - unobtainable, patient is intubated Objective Vital Signs Date Time Temp Pulse Resp B/P (MAP) Pulse Ox O2 Delivery O2 Flow Rate FiO2 09/26/17 10:00 69 09/26/17 09:49 93 30 09/26/17 08:00 98.3 14 116/63 (80) 09/22/17 19:33 Ventilator Intake and Output 09/26/17 09/26/17 09/27/17 08:00 16:00 00:00 Intake Total 1350 ml Balance 1350 ml Result Diagram: 09/26/17 0520 09/26/17 0520 Other Results Laboratory Tests Test 09/26/17 05:18 09/26/17 12:05 Blood Gas Puncture Site RN LINE CENTRAL LINE Blood Gas Patient Temperature 98.6 98.6 Venous Blood pH 7.41 (7.360-7.400) 7.42 (7.360-7.400) Venous Blood Partial Pressure CO2 49 mmHg (44-48) 48 mmHg (44-48) Venous Blood Partial Pressure O2 46 mmHg (35-40) 39 mmHg (35-40) Venous Blood HCO3 30 mmol/L (22-26) 30 mmol/L (22-26) Venous Blood Oxygen Saturation 77 % (70-76) 69 % (70-76) Venous Blood Oxygen Content 13.7 Vol % (9.0-17.0) 11.8 Vol % (9.0-17.0) Venous Blood Base Excess 5.8 mmol/L (-2-2) 5.7 mmol/L (-2-2) Oxygen Delivery Device VENTILATOR VENTILATOR Blood Gas Ventilator Setting SEE COMMENTS APRV30/5.0/0/0.8/PS0 Blood Gas Inspired Oxygen 30 % 30 % Imaging Last 24 hours Impressions Chest X-Ray 09/20/17 1003 Signed Impressions: Service Date/Time: Wednesday, September 20, 2017 10:50 - CONCLUSION: Cardiomegaly. Some consolidation in the right lung base most likely atelectasis. Roni Shah MD Chest X-Ray 09/20/17 0000 Signed Impressions: Service Date/Time: Wednesday, September 20, 2017 22:10 - CONCLUSION: 1. Very limited study. 2. Tip of the endotracheal tube within the right mainstem bronchus. Suggest retracting it approximately 4 cm. 3. Bibasilar densities. This may be in part due to effusions. Vivek Sung Jr., MD Objective Remarks GENERAL: Elderly lady, morbidly obese, sedated and intubated, ill appearing SKIN: Warm HEAD: Atraumatic. Normocephalic. No temporal or scalp tenderness. EYES: Pupils equal round and reactive. No injection or drainage. No icterus. ENT: Nose without bleeding. NECK: Trachea midline. Orally intubated. No carotid bruit, unable to evaluate for JVD. CARDIOVASCULAR: Regular heart sounds, no murmurs, distant. RESPIRATORY: Still with decreased breath sounds at bases, rest clear, no wheezes. GASTROINTESTINAL: Abdomen soft, morbidly obese, not tender, no guarding. MUSCULOSKELETAL: Extremities without clubbing, cyanosis 1+ edema. NEUROLOGICAL: Sedated and intubated, spontaneously moves all extremities. A/P Assessment and Plan ASSESSMENT: Acute on chronic hypoxemic respiratory failure - improving, lower FiO2 requirements but remains on APRV Bilateral pneumonia - afebrile, minimal leukocytosis, cultures are negative to date Underlying COPD with exacerbation - resolving Obesity hypoventilation syndrome and obstructive sleep apnea Anxiety/depression/panic attack Super Morbid obesity Agitated Delirium Hypertension PLAN: - Mechanical ventilation APRV mode, P high decreased to 30. Will attempt to switch to PRVC - Off antibiotics - Minimize sedation and will only use if agitated - DuoNeb scheduled and when necessary - Taper steroids - Lasix stopped - Stop dobutamine, repeat CVO2 68% - Continue amlodipine - GI/DVT prophylaxis -. On TF - Discussed at length with patient's son and regarding plan of care and advanced directives. OVERALL IMPRESSION: Critically ill with life-threatening hypoxemia. Off pathway and high risk of from this degree of hypoxia and acute lung injury superimposed on chronic multifactorial lung disease. High likelihood of trach and permanent vent dependent respiratory failure. May need LTAC. Edu Rodriguez MD Sep 26, 2017 12:36
[2017-09-27] VITALS (17 sets, daily range): BP systolic 100–125; BP diastolic 54–66; PULSE 55–77; RESP 14–25; TEMP 97.6–98.5; O2SAT 93–100
[2017-09-27] MEDS: PROPOFOL 1000 MG/100 ML IV PRN ×9 (00:01→22:42)
[2017-09-27] MEDS: OLANZapine ODT 10 MG TAB PO SCH ×3 (05:39→20:49)
[2017-09-27] MEDS: INSULIN ASPART SUPPLEMENTAL SCALE SQ SCH ×4 (05:55→18:00)
[2017-09-27 06:11] LABS: HEMATOCRIT 39.4 % (35.0-46.0); HEMOGLOBIN 12.6 GM/DL (11.6-15.3); MEAN CELL VOLUME 80.5 FL (80.0-100.0); MEAN CORPUSCULAR HEMOGLOBIN 25.7 PG (27.0-34.0); MEAN CORPUSCULAR HGB CONC 31.9 % (32.0-36.0); PLATELET COUNT 185 TH/MM3 (150-450); RED CELL DISTRIBUTION WIDTH 17.6 % (11.6-17.2); WHITE BLOOD COUNT 10.9 TH/MM3 (4.0-11.0)
[2017-09-27 06:38] LABS: BICARBONATE 32.2 MEQ/L (21.0-32.0); CALCIUM 7.6 MG/DL (8.5-10.1); CREATININE 0.33 MG/DL (0.50-1.00); MAGNESIUM 2.4 MG/DL (1.5-2.5)
[2017-09-27 06:39] LABS: PHOSPHORUS 3.3 MG/DL (2.5-4.9)
[2017-09-27] MEDS: ENOXAPARIN SODIUM 40 MG/0.4 ML SYRINGE SQ SCH (08:19)
[2017-09-27] MEDS: PANTOPRAZOLE SODIUM 40 MG VIAL IV PUSH SCH (08:19)
[2017-09-27] MEDS: SODIUM CHLORIDE 0.9% FLUSH 10 ML FLUSH IV FLUSH SCH ×2 (09:00→20:49)
--- NOTE | 2017-09-27 09:20 | HHI.CCPN ---
Subjective Remarks/Hospital Course 67-year-old unfortunate morbidly obese female with past medical history of COPD , history of being oxygen dependent, panic/anxiety/depression disorder who presented with shortness of breathing. Patient stated that shortness of breathing was abrupt and started yesterday. She stated that this was due to her panic attack. She did not think this was due to her COPD. Patient was oxygen dependent but was taken off of oxygen in May. She was told by her provider up in [place] that she was overdosing on oxygen and didn't need oxygen any longer. Previously she was on 4 L of oxygen. She has received some treatment in the emergency department with the BiPAP with some improvement of her respiratory distress. She was admitted to medical floor where she did radiated became severely hypercapnic and hypoxemic. She was transferred emergently to ICU and immediately intubated for respiratory failure. 09/21/17: Remains intubated sedated critically ill. FiO2 had been weaned to 60% PEEP remains at 10. On brief sedation hold able to follow commands 4. Chest x -ray shows bibasilar consolidation. Send sputum culture. DC ceftriaxone. Start cefepime 2 g IV every 8 hours, Levaquin 750 mg every 24 hours 09/22: remains intubated and hypoxic. becomes quite agitated when sedation vacation. cultures NGTD. off pathway. CXR today with worsening lung-space disease as well as left pleural effusion. effusion confirmed on bedside ultrasonography, however, relatively small area of posterior effusion and would be high risk to drain given super morbid obesity. 09/23: Unable to recruit bases with conventional ventilation modes, will convert to APRV. Gas exchange markedly impaired at present. 09/24: Finally getting lung bases recruited on APRV with mean airway pressure almost 30. Needs additional diuresis. Suspect chronic pulmonary artery hypertension. 09/25: Will try to wean but may need tracheostomy. Diuresis complete, now azotemia. 09/26: No events over the night. Patient doing better, FiO2 down to 0.3, P high decreased to 30 this AM. Urine output low yesterday afternoon, gentle iv hydration started. Remains on light sedation due to agitation. Afebrile, off antibiotics. 09/27: No events over the night. Improved urine output, I/O 2558/1275. Afebrile. Switched to PRVC, currently on PEEP of 12, plan to taper it down as tolerated. She opens eyes to voice stimuli and follows some commands. ROS - unobtainable, patient is intubated Objective Vital Signs Date Time Temp Pulse Resp B/P (MAP) Pulse Ox O2 Delivery O2 Flow Rate FiO2 09/27/17 08:36 97 40 09/27/17 06:00 64 09/27/17 04:00 97.6 15 101/56 (71) 09/26/17 19:51 Ventilator Intake and Output 09/27/17 09/27/17 09/27/17 07:59 15:59 23:59 Intake Total 1046 ml Output Total 725 ml Balance 321 ml Result Diagram: 09/27/17 0545 09/27/17 0545 Other Results Laboratory Tests Test 09/26/17 12:05 09/27/17 05:49 Blood Gas Puncture Site CENTRAL LINE RN Blood Gas Patient Temperature 98.6 98.6 Venous Blood pH 7.42 (7.360-7.400) 7.30 (7.360-7.400) Venous Blood Partial Pressure CO2 48 mmHg (44-48) 70 mmHg (44-48) Venous Blood Partial Pressure O2 39 mmHg (35-40) 43 mmHg (35-40) Venous Blood HCO3 30 mmol/L (22-26) 33 mmol/L (22-26) Venous Blood Oxygen Saturation 69 % (70-76) 70 % (70-76) Venous Blood Oxygen Content 11.8 Vol % (9.0-17.0) 12.3 Vol % (9.0-17.0) Venous Blood Base Excess 5.7 mmol/L (-2-2) 7.1 mmol/L (-2-2) Oxygen Delivery Device VENTILATOR VENTILATOR Blood Gas Ventilator Setting APRV30/5.0/0/0.8/PS0 PRVC/ AC Blood Gas Inspired Oxygen 30 % 40 % Imaging Last 24 hours Impressions Chest X-Ray 09/20/17 1003 Signed Impressions: Service Date/Time: Wednesday, September 20, 2017 10:50 - CONCLUSION: Cardiomegaly. Some consolidation in the right lung base most likely atelectasis. Roni Shah MD Chest X-Ray 09/20/17 0000 Signed Impressions: Service Date/Time: Wednesday, September 20, 2017 22:10 - CONCLUSION: 1. Very limited study. 2. Tip of the endotracheal tube within the right mainstem bronchus. Suggest retracting it approximately 4 cm. 3. Bibasilar densities. This may be in part due to effusions. Vivek Sung Jr., MD Objective Remarks GENERAL: Elderly lady, morbidly obese, sedated and intubated, ill appearing. SKIN: Warm HEAD: Atraumatic. Normocephalic. No temporal or scalp tenderness. EYES: Pupils are equal and reactive. Scleare are anicteric. No injection or drainage. ENT: Nose without bleeding. + NGT, + ETT NECK: Trachea midline. Neck is soft. No carotid bruit, unable to evaluate for JVD. CARDIOVASCULAR: Regular S1, S2, no murmurs, distant. RESPIRATORY: Still with decreased breath sounds at bases, rest clear, no wheezes. GASTROINTESTINAL: Abdomen soft, morbidly obese, not tender, BS normal. MUSCULOSKELETAL: Extremities without clubbing, cyanosis 1+ edema, feet tepid to touch. NEUROLOGICAL: Opens eyes to voice stimuli and follows some commands. Vascular Central Line Catheter: Yes Assessment to: Continue Side: Right Location: Subclavian A/P Assessment and Plan ASSESSMENT: Acute on chronic hypoxemic respiratory failure - improving, on 0.4 FiO2 Bilateral pneumonia - afebrile, minimal leukocytosis, cultures are negative to date Underlying COPD with exacerbation - resolving Obesity hypoventilation syndrome and obstructive sleep apnea Anxiety/depression/panic attack Super Morbid obesity Agitated Delirium Hypertension PLAN: - Switched to PRVC, currently on 375/14/0.4, PEEP 12, Pip 29. Increase RR to 18 , decrease Ti to 1, gradually decrease PEEP no lower than 10 today not to de- recruit - Off antibiotics - Minimize sedation, will add fentanyl for pain - Vent bundle and bronchodilators - Off steroids - Lasix stopped - Off dobutamine with good CVO2 - Continue amlodipine - GI/DVT prophylaxis - On TF - Discussed yesterday at length with patient's son and regarding plan of care and advanced directives. OVERALL IMPRESSION: Critically ill with life-threatening hypoxemia. Off pathway and high risk of from this degree of hypoxia and acute lung injury superimposed on chronic multifactorial lung disease. High likelihood of trach and permanent vent dependent respiratory failure. May need LTAC. Edu Rodriguez MD Sep 27, 2017 09:20
[2017-09-28] VITALS (20 sets, daily range): BP systolic 105–135; BP diastolic 59–67; PULSE 55–106; RESP 18–25; TEMP 97.4–98.5; O2SAT 92–99
[2017-09-28] MEDS: PROPOFOL 1000 MG/100 ML IV PRN ×2 (01:41→05:48)
[2017-09-28 05:43] LABS: HEMATOCRIT 38.4 % (35.0-46.0); HEMOGLOBIN 12.2 GM/DL (11.6-15.3); MEAN CELL VOLUME 79.9 FL (80.0-100.0); MEAN CORPUSCULAR HEMOGLOBIN 25.5 PG (27.0-34.0); MEAN CORPUSCULAR HGB CONC 31.9 % (32.0-36.0); MEAN PLATELET VOLUME 8.3 FL (7.0-11.0); PLATELET COUNT 191 TH/MM3 (150-450); RED CELL DISTRIBUTION WIDTH 17.2 % (11.6-17.2); WHITE BLOOD COUNT 12.2 TH/MM3 (4.0-11.0)
[2017-09-28] MEDS: OLANZapine ODT 10 MG TAB PO SCH ×3 (05:45→20:49)
[2017-09-28] MEDS: LACTATED RINGER'S 1000 ML INJ 1,000 ML IV SCH ×2 (05:51→23:36)
--- NOTE | 2017-09-28 05:52 | RADRPT ---
EXAM DATE/TIME: 09/28/2017 05:14 [facility] COMPARISON: CHEST SINGLE AP, September 26, 2017, 5:14. INDICATIONS : Shortness of breath MEDICAL HISTORY : Chronic obstructive pulmonary disease SURGICAL HISTORY : Cholecystectomy. Appendectomy. ENCOUNTER: Subsequent ACUITY: 1 week PAIN SCORE: Non-responsive. LOCATION: Bilateral chest FINDINGS: ET tube tip 2 cm above the edilberto. Gastric tube traverses the field of view. Right subclavian shahrzad ter tip in the mid superior vena cava. Patchy opacities in the mid and lower lungs bilaterally are s imilar to prior exam when taking into account differences in technique. Stable cardiomegaly. CONCLUSION: Stable opacities in the lower lungs, left greater than right. Vivek Rajput MD on September 28, 2017 at 5:49 Board Certified Radiologist. This report was verified electronically.
[2017-09-28 05:59] LABS: BICARBONATE 31.5 MEQ/L (21.0-32.0); CALCIUM 7.6 MG/DL (8.5-10.1); CREATININE 0.36 MG/DL (0.50-1.00); MAGNESIUM 2.3 MG/DL (1.5-2.5)
[2017-09-28 06:00] LABS: PHOSPHORUS 2.4 MG/DL (2.5-4.9)
[2017-09-28] MEDS: INSULIN ASPART SUPPLEMENTAL SCALE SQ SCH ×5 (06:00→23:36)
[2017-09-28] MEDS: RESP: ALBUTEROL 2.5 MG/3 ML NEB (PRN) INH ×3 (07:59→20:01)
[2017-09-28] MEDS: ENOXAPARIN SODIUM 40 MG/0.4 ML SYRINGE SQ SCH (08:56)
[2017-09-28] MEDS: PANTOPRAZOLE SODIUM 40 MG VIAL IV PUSH SCH (08:57)
[2017-09-28] MEDS: SODIUM CHLORIDE 0.9% FLUSH 10 ML FLUSH IV FLUSH SCH ×2 (09:00→20:49)
--- NOTE | 2017-09-28 09:28 | HHI.CCPN ---
Subjective Remarks/Hospital Course 67-year-old unfortunate morbidly obese female with past medical history of COPD , history of being oxygen dependent, panic/anxiety/depression disorder who presented with shortness of breathing. Patient stated that shortness of breathing was abrupt and started yesterday. She stated that this was due to her panic attack. She did not think this was due to her COPD. Patient was oxygen dependent but was taken off of oxygen in May. She was told by her provider up in [place] that she was overdosing on oxygen and didn't need oxygen any longer. Previously she was on 4 L of oxygen. She has received some treatment in the emergency department with the BiPAP with some improvement of her respiratory distress. She was admitted to medical floor where she did radiated became severely hypercapnic and hypoxemic. She was transferred emergently to ICU and immediately intubated for respiratory failure. 09/21/17: Remains intubated sedated critically ill. FiO2 had been weaned to 60% PEEP remains at 10. On brief sedation hold able to follow commands 4. Chest x -ray shows bibasilar consolidation. Send sputum culture. DC ceftriaxone. Start cefepime 2 g IV every 8 hours, Levaquin 750 mg every 24 hours 09/22: remains intubated and hypoxic. becomes quite agitated when sedation vacation. cultures NGTD. off pathway. CXR today with worsening lung-space disease as well as left pleural effusion. effusion confirmed on bedside ultrasonography, however, relatively small area of posterior effusion and would be high risk to drain given super morbid obesity. 09/23: Unable to recruit bases with conventional ventilation modes, will convert to APRV. Gas exchange markedly impaired at present. 09/24: Finally getting lung bases recruited on APRV with mean airway pressure almost 30. Needs additional diuresis. Suspect chronic pulmonary artery hypertension. 09/25: Will try to wean but may need tracheostomy. Diuresis complete, now azotemia. 09/26: No events over the night. Patient doing better, FiO2 down to 0.3, P high decreased to 30 this AM. Urine output low yesterday afternoon, gentle iv hydration started. Remains on light sedation due to agitation. Afebrile, off antibiotics. 09/27: No events over the night. Improved urine output, I/O 2558/1275. Afebrile. Switched to PRVC, currently on PEEP of 12, plan to taper it down as tolerated. She opens eyes to voice stimuli and follows some commands. 09/28: Patient did well over the night. This AM sedation stopped, awake, following some commands, anxious at times. Afebrile, I/O 2484/1850. PEEP decreased to 6. ROS - unobtainable, patient is intubated Objective Vital Signs Date Time Temp Pulse Resp B/P (MAP) Pulse Ox O2 Delivery O2 Flow Rate FiO2 09/28/17 08:01 96 40 09/28/17 06:00 68 09/28/17 04:00 98.5 23 120/61 (80) 09/26/17 19:51 Ventilator Intake and Output 09/28/17 09/28/17 09/29/17 08:00 16:00 00:00 Intake Total 1529 ml Output Total 500 ml Balance 1029 ml Result Diagram: 09/28/17 0520 09/28/17 0520 Other Results Laboratory Tests Test 09/27/17 13:19 09/28/17 05:39 Blood Gas Puncture Site CENTRAL LINE RN CENTRAL LINE Blood Gas Patient Temperature 98.6 98.6 Venous Blood pH 7.39 (7.360-7.400) 7.39 (7.360-7.400) Venous Blood Partial Pressure CO2 56 mmHg (44-48) 56 mmHg (44-48) Venous Blood Partial Pressure O2 33 mmHg (35-40) 42 mmHg (35-40) Venous Blood HCO3 33 mmol/L (22-26) 33 mmol/L (22-26) Venous Blood Oxygen Saturation 61 % (70-76) 71 % (70-76) Venous Blood Oxygen Content 10.3 Vol % (9.0-17.0) 12.0 Vol % (9.0-17.0) Venous Blood Base Excess 7.6 mmol/L (-2-2) 7.9 mmol/L (-2-2) Oxygen Delivery Device VENTILATOR VENTILATOR Blood Gas Ventilator Setting PRVC/AC SEE COMMENT Blood Gas Inspired Oxygen 40 % 40 % Imaging Last 24 hours Impressions Chest X-Ray 09/20/17 1003 Signed Impressions: Service Date/Time: Wednesday, September 20, 2017 10:50 - CONCLUSION: Cardiomegaly. Some consolidation in the right lung base most likely atelectasis. Roni Shah MD Chest X-Ray 09/20/17 0000 Signed Impressions: Service Date/Time: Wednesday, September 20, 2017 22:10 - CONCLUSION: 1. Very limited study. 2. Tip of the endotracheal tube within the right mainstem bronchus. Suggest retracting it approximately 4 cm. 3. Bibasilar densities. This may be in part due to effusions. Vivek Sung Jr., MD Objective Remarks General - elderly lady, morbidly obese, intubated, awake, ill appearing HEENT - pupils equal, reactive, sclerae anicteric, neck supple, no nuchal rigidity, unable to appreciate neck veins distension, no carotid bruit CV - regular S1, S2, no murmurs, distant Chest - clear b/l, decreased air entry at bases, no wheezes Abdomen - soft, obese, non-tender, BS present, unable to appreciate hepatomegaly , nor splenomegaly Skin - no rashes, no cyanosis Extremities - warm and well perfused, trace edema, + peripheral pulses, no clubbing Neuro - opens eyes to voice stimuli and follows some commands Urinary Catheter: Yes Assessment to: Continue Ravi insert reason: Measure Accurate Output Vascular Central Line Catheter: Yes Line: Central Venous Catheter Side: Right Location: Subclavian A/P Assessment and Plan ASSESSMENT: Acute on chronic hypoxemic respiratory failure - improving, on 0.4 FiO2 and lower PEEP Bilateral pneumonia - resolved, afebrile, minimal leukocytosis, cultures are negative to date Underlying COPD with exacerbation - resolved Obesity hypoventilation syndrome and obstructive sleep apnea Anxiety/depression/panic attack Super Morbid obesity Agitated Delirium Hypertension PLAN: - On PRVC, doing well, PEEP gradually decreased, now 6, Pip 28. Sedation stopped , placed on SBT, doing well so far. Will check a VBG in 2 hours and if doing well will attempt to extubate to BPAP - Off antibiotics - Fentanyl for pain - Vent bundle and bronchodilators - Off steroids - Lasix stopped - Off dobutamine with good CVO2 - Continue amlodipine - GI/DVT prophylaxis - On TF, hold - Will need pulmonary consult if she comes off the vent Edu Rodriguez MD Sep 28, 2017 09:28
[2017-09-28] MEDS: DEXMEDETOMIDINE INJ 1,000 MCG in SODIUM CHLOR 0.9% 250 ML INJ 240 ML IV PRN (13:51)
[2017-09-29] VITALS (18 sets, daily range): BP systolic 102–179; BP diastolic 50–84; PULSE 61–78; RESP 12–20; TEMP 96.7–98.3; O2SAT 89–99
[2017-09-29] MEDS: LACTATED RINGER'S 1000 ML INJ 1,000 ML IV SCH ×3 (00:15→21:00)
[2017-09-29] MEDS: DEXMEDETOMIDINE INJ 1,000 MCG in SODIUM CHLOR 0.9% 250 ML INJ 240 ML IV PRN (02:41)
[2017-09-29 04:58] LABS: HEMATOCRIT 39.3 % (35.0-46.0); HEMOGLOBIN 12.1 GM/DL (11.6-15.3); MEAN CELL VOLUME 81.8 FL (80.0-100.0); MEAN CORPUSCULAR HEMOGLOBIN 25.2 PG (27.0-34.0); MEAN CORPUSCULAR HGB CONC 30.8 % (32.0-36.0); MEAN PLATELET VOLUME 8.5 FL (7.0-11.0); PLATELET COUNT 186 TH/MM3 (150-450); RED BLOOD COUNT 4.81 MIL/MM3 (4.00-5.30); RED CELL DISTRIBUTION WIDTH 17.8 % (11.6-17.2); WHITE BLOOD COUNT 10.1 TH/MM3 (4.0-11.0)
[2017-09-29 05:12] LABS: BICARBONATE 33.6 MEQ/L (21.0-32.0); CALCIUM 7.8 MG/DL (8.5-10.1); CREATININE 0.36 MG/DL (0.50-1.00)
[2017-09-29] MEDS: INSULIN ASPART SUPPLEMENTAL SCALE SQ SCH ×3 (05:31→18:00)
[2017-09-29] MEDS: OLANZapine ODT 10 MG TAB PO SCH ×3 (05:32→22:00)
[2017-09-29] MEDS: RESP: ALBUTEROL 2.5 MG/3 ML NEB (PRN) INH ×3 (08:16→20:45)
--- NOTE | 2017-09-29 08:42 | HHI.CCPN ---
Subjective Remarks/Hospital Course 67-year-old unfortunate morbidly obese female with past medical history of COPD , history of being oxygen dependent, panic/anxiety/depression disorder who presented with shortness of breathing. Patient stated that shortness of breathing was abrupt and started yesterday. She stated that this was due to her panic attack. She did not think this was due to her COPD. Patient was oxygen dependent but was taken off of oxygen in May. She was told by her provider up in [place] that she was overdosing on oxygen and didn't need oxygen any longer. Previously she was on 4 L of oxygen. She has received some treatment in the emergency department with the BiPAP with some improvement of her respiratory distress. She was admitted to medical floor where she did radiated became severely hypercapnic and hypoxemic. She was transferred emergently to ICU and immediately intubated for respiratory failure. 09/21/17: Remains intubated sedated critically ill. FiO2 had been weaned to 60% PEEP remains at 10. On brief sedation hold able to follow commands 4. Chest x -ray shows bibasilar consolidation. Send sputum culture. DC ceftriaxone. Start cefepime 2 g IV every 8 hours, Levaquin 750 mg every 24 hours 09/22: remains intubated and hypoxic. becomes quite agitated when sedation vacation. cultures NGTD. off pathway. CXR today with worsening lung-space disease as well as left pleural effusion. effusion confirmed on bedside ultrasonography, however, relatively small area of posterior effusion and would be high risk to drain given super morbid obesity. 09/23: Unable to recruit bases with conventional ventilation modes, will convert to APRV. Gas exchange markedly impaired at present. 09/24: Finally getting lung bases recruited on APRV with mean airway pressure almost 30. Needs additional diuresis. Suspect chronic pulmonary artery hypertension. 09/25: Will try to wean but may need tracheostomy. Diuresis complete, now azotemia. 09/26: No events over the night. Patient doing better, FiO2 down to 0.3, P high decreased to 30 this AM. Urine output low yesterday afternoon, gentle iv hydration started. Remains on light sedation due to agitation. Afebrile, off antibiotics. 09/27: No events over the night. Improved urine output, I/O 2558/1275. Afebrile. Switched to PRVC, currently on PEEP of 12, plan to taper it down as tolerated. She opens eyes to voice stimuli and follows some commands. 09/28: Patient did well over the night. This AM sedation stopped, awake, following some commands, anxious at times. Afebrile, I/O 2484/1850. PEEP decreased to 6. 09/29: Patient was extubated yesterday to BPAP. She was tried off BPAP but she did not do well without it. She is currently on 15/8/45%, on low dose precedex, awake, following commands. ROS - unobtainable, patient is confused Objective Vital Signs Date Time Temp Pulse Resp B/P (MAP) Pulse Ox O2 Delivery O2 Flow Rate FiO2 09/29/17 08:17 98 45 09/29/17 06:00 77 09/29/17 04:00 98.3 14 103/53 (70) 09/29/17 03:50 Bi-Pap Intake and Output 09/29/17 09/29/17 09/30/17 08:00 16:00 00:00 Output Total 350 ml Balance -350 ml Result Diagram: 09/29/17 0430 09/29/17 0430 Other Results Laboratory Tests Test 09/28/17 10:25 09/28/17 22:02 09/29/17 07:22 Blood Gas Puncture Site LT RADIAL RT RADIAL LT RADIAL Blood Gas Patient Temperature 98.6 98.6 98.6 Blood Gas HCO3 30 mmol/L (22-26) 32 mmol/L (22-26) 33 mmol/L (22-26) Blood Gas Base Excess 5.3 mmol/L (-2-2) 5.9 mmol/L (-2-2) 5.9 mmol/L (-2-2) Blood Gas Oxygen Saturation 88 % (90-100) 91 % (90-100) 90 % (90-100) Arterial Blood pH 7.37 (7.380-7.420) 7.29 (7.380-7.420) 7.27 (7.380-7.420) Arterial Blood Partial Pressure CO2 54 mmHg (38-42) 70 mmHg (38-42) 73 mmHg (38-42) Arterial Blood Partial Pressure O2 61 mmHg (61-120) 73 mmHg (61-120) 71 mmHg (61-120) Arterial Blood Oxygen Content 16.4 Vol % (12.0-20.0) 15.9 Vol % (12.0-20.0) 16.2 Vol % (12.0-20.0) Arterial Blood Carboxyhemoglobin 1.4 % (0-4) 1.4 % (0-4) 1.5 % (0-4) Arterial Blood Methemoglobin 1.1 % (0-2) 1.1 % (0-2) 1.2 % (0-2) Blood Gas Hemoglobin 13.4 G/DL (12.0-16.0) 12.4 G/DL (12.0-16.0) 12.8 G/DL (12.0-16.0) Oxygen Delivery Device VENTILATOR BiPAP BiPAP Blood Gas Ventilator Setting CPAP/PS8/PEEP6 IPAP15/EPAP8 Blood Gas Inspired Oxygen 40 % 65 % 45 % Imaging Last 24 hours Impressions Chest X-Ray 09/20/17 1003 Signed Impressions: Service Date/Time: Wednesday, September 20, 2017 10:50 - CONCLUSION: Cardiomegaly. Some consolidation in the right lung base most likely atelectasis. Roni Shah MD Chest X-Ray 09/20/17 0000 Signed Impressions: Service Date/Time: Wednesday, September 20, 2017 22:10 - CONCLUSION: 1. Very limited study. 2. Tip of the endotracheal tube within the right mainstem bronchus. Suggest retracting it approximately 4 cm. 3. Bibasilar densities. This may be in part due to effusions. Vivek Sung Jr., MD Objective Remarks General - elderly lady, morbidly obese, awake, ill appearing, on BPAP HEENT - pupils equal, reactive, sclerae anicteric, neck supple, no neck rigidity , unable to appreciate neck veins distension, no carotid bruit, dry MM CV - regular S1, S2, no murmurs, distant Chest - coarse breath sounds b/l, decreased air entry at bases, no wheezes Abdomen - soft, obese, non-tender, BS present, unable to appreciate hepatomegaly , nor splenomegaly Skin - no rashes, no cyanosis Extremities - warm and well perfused, trace edema, + peripheral pulses, no clubbing Neuro - opens eyes to voice stimuli and follows some commands Line: Central Venous Catheter Side: Right Location: Subclavian A/P Assessment and Plan ASSESSMENT: Acute on chronic hypoxemic respiratory failure - extubated, BPAP dependent Bilateral pneumonia - resolved, afebrile, minimal leukocytosis, cultures are negative to date Underlying COPD with exacerbation - resolved Obesity hypoventilation syndrome and obstructive sleep apnea Anxiety/depression/panic attack Super Morbid obesity Agitated Delirium Hypertension PLAN: - Continue BPAP. Patient is at high risk of needing re-intubation - Off antibiotics - Off steroids - Lasix stopped - Off dobutamine with good CVO2 - Continue amlodipine - GI/DVT prophylaxis - Will need pulmonary consult if she comes off the vent Edu Rodriguez MD Sep 29, 2017 08:42
[2017-09-29] MEDS: SODIUM CHLORIDE 0.9% FLUSH 10 ML FLUSH IV FLUSH SCH ×2 (09:00→21:00)
[2017-09-29] MEDS: PANTOPRAZOLE SODIUM 40 MG VIAL IV PUSH SCH (10:09)
[2017-09-29] MEDS: ENOXAPARIN SODIUM 40 MG/0.4 ML SYRINGE SQ SCH (10:09)
[2017-09-30] VITALS (18 sets, daily range): BP systolic 129–184; BP diastolic 65–93; PULSE 66–92; RESP 15–24; TEMP 97.3–98.5; O2SAT 88–95
[2017-09-30] MEDS: DEXMEDETOMIDINE INJ 1,000 MCG in SODIUM CHLOR 0.9% 250 ML INJ 240 ML IV PRN ×3 (01:28→22:19)
[2017-09-30 04:16] LABS: AUTOMATED NEUTROPHIL # 7.9 TH/MM3 (1.8-7.7); BASOPHIL % 0.3 % (0.0-2.0); EOSINOPHIL # 0.3 TH/MM3 (0-0.4); EOSINOPHIL % 3.1 % (0.0-4.0); HEMATOCRIT 39.5 % (35.0-46.0); HEMOGLOBIN 12.6 GM/DL (11.6-15.3); LYMPH % 8.4 % (9.0-44.0); LYMPHOCYTE # 0.8 TH/MM3 (1.0-4.8); MEAN CELL VOLUME 80.6 FL (80.0-100.0); MEAN CORPUSCULAR HEMOGLOBIN 25.7 PG (27.0-34.0); MEAN CORPUSCULAR HGB CONC 31.9 % (32.0-36.0); MEAN PLATELET VOLUME 8.4 FL (7.0-11.0); MONO % 8.6 % (0.0-8.0); MONOCYTE # 0.9 TH/MM3 (0-0.9); NEUT % 79.6 % (16.0-70.0); PLATELET COUNT 214 TH/MM3 (150-450); RED CELL DISTRIBUTION WIDTH 17.1 % (11.6-17.2); WHITE BLOOD COUNT 9.9 TH/MM3 (4.0-11.0)
[2017-09-30 04:45] LABS: BICARBONATE 35.1 MEQ/L (21.0-32.0); CALCIUM 8.1 MG/DL (8.5-10.1); CREATININE 0.24 MG/DL (0.50-1.00)
[2017-09-30] MEDS: OLANZapine ODT 10 MG TAB PO SCH ×3 (06:00→20:04)
[2017-09-30] MEDS: INSULIN ASPART SUPPLEMENTAL SCALE SQ SCH ×5 (06:00→23:27)
[2017-09-30] MEDS: LACTATED RINGER'S 1000 ML INJ 1,000 ML IV SCH ×2 (07:00→16:35)
[2017-09-30] MEDS: SODIUM CHLORIDE 0.9% FLUSH 10 ML FLUSH IV FLUSH SCH ×2 (07:44→20:05)
[2017-09-30] MEDS: ENOXAPARIN SODIUM 40 MG/0.4 ML SYRINGE SQ SCH (09:16)
[2017-09-30] MEDS: PANTOPRAZOLE SODIUM 40 MG VIAL IV PUSH SCH (09:17)
--- NOTE | 2017-09-30 10:03 | HHI.CCPN ---
Subjective Remarks/Hospital Course 67-year-old unfortunate morbidly obese female with past medical history of COPD , history of being oxygen dependent, panic/anxiety/depression disorder who presented with shortness of breathing. Patient stated that shortness of breathing was abrupt and started yesterday. She stated that this was due to her panic attack. She did not think this was due to her COPD. Patient was oxygen dependent but was taken off of oxygen in May. She was told by her provider up in [place] that she was overdosing on oxygen and didn't need oxygen any longer. Previously she was on 4 L of oxygen. She has received some treatment in the emergency department with the BiPAP with some improvement of her respiratory distress. She was admitted to medical floor where she did radiated became severely hypercapnic and hypoxemic. She was transferred emergently to ICU and immediately intubated for respiratory failure. 09/21/17: Remains intubated sedated critically ill. FiO2 had been weaned to 60% PEEP remains at 10. On brief sedation hold able to follow commands 4. Chest x -ray shows bibasilar consolidation. Send sputum culture. DC ceftriaxone. Start cefepime 2 g IV every 8 hours, Levaquin 750 mg every 24 hours 09/22: remains intubated and hypoxic. becomes quite agitated when sedation vacation. cultures NGTD. off pathway. CXR today with worsening lung-space disease as well as left pleural effusion. effusion confirmed on bedside ultrasonography, however, relatively small area of posterior effusion and would be high risk to drain given super morbid obesity. 09/23: Unable to recruit bases with conventional ventilation modes, will convert to APRV. Gas exchange markedly impaired at present. 09/24: Finally getting lung bases recruited on APRV with mean airway pressure almost 30. Needs additional diuresis. Suspect chronic pulmonary artery hypertension. 09/25: Will try to wean but may need tracheostomy. Diuresis complete, now azotemia. 09/26: No events over the night. Patient doing better, FiO2 down to 0.3, P high decreased to 30 this AM. Urine output low yesterday afternoon, gentle iv hydration started. Remains on light sedation due to agitation. Afebrile, off antibiotics. 09/27: No events over the night. Improved urine output, I/O 2558/1275. Afebrile. Switched to PRVC, currently on PEEP of 12, plan to taper it down as tolerated. She opens eyes to voice stimuli and follows some commands. 09/28: Patient did well over the night. This AM sedation stopped, awake, following some commands, anxious at times. Afebrile, I/O 2484/1850. PEEP decreased to 6. 09/29: Patient was extubated yesterday to BPAP. She was tried off BPAP but she did not do well without it. She is currently on 15/8/45%, on low dose precedex, awake, following commands. 09/30: Unfortunately the patient remains BPAP dependent. She is awake, follows commands, denies any pain. BPAP settings improved, on 0.35 FiO2. I/O 964/2600. ROS - unobtainable, patient is confused Objective Vital Signs Date Time Temp Pulse Resp B/P (MAP) Pulse Ox O2 Delivery O2 Flow Rate FiO2 09/30/17 08:38 90 35 09/30/17 08:00 97.8 78 21 148/67 (94) 09/30/17 07:00 Bi-Pap Intake and Output 09/30/17 09/30/17 10/01/17 08:00 16:00 00:00 Intake Total 604 ml Output Total 1300 ml Balance -696 ml Result Diagram: 09/30/17 0355 09/30/17 0355 Other Results Laboratory Tests Test 09/30/17 05:20 Blood Gas Puncture Site LINE Blood Gas Patient Temperature 98.6 Venous Blood pH 7.29 (7.360-7.400) Venous Blood Partial Pressure CO2 74 mmHg (44-48) Venous Blood Partial Pressure O2 43 mmHg (35-40) Venous Blood HCO3 34 mmol/L (22-26) Venous Blood Oxygen Saturation 70 % (70-76) Venous Blood Oxygen Content 12.5 Vol % (9.0-17.0) Venous Blood Base Excess 7.9 mmol/L (-2-2) Oxygen Delivery Device BIPAP Blood Gas Ventilator Setting IPAP 19/EPAP 6 Blood Gas Inspired Oxygen 35 % Imaging Last 24 hours Impressions Chest X-Ray 09/20/17 1003 Signed Impressions: Service Date/Time: Wednesday, September 20, 2017 10:50 - CONCLUSION: Cardiomegaly. Some consolidation in the right lung base most likely atelectasis. Roni Shah MD Chest X-Ray 09/20/17 0000 Signed Impressions: Service Date/Time: Wednesday, September 20, 2017 22:10 - CONCLUSION: 1. Very limited study. 2. Tip of the endotracheal tube within the right mainstem bronchus. Suggest retracting it approximately 4 cm. 3. Bibasilar densities. This may be in part due to effusions. Vivek Sung Jr., MD Objective Remarks General - elderly lady, morbidly obese, awake, ill appearing, on BPAP HEENT - pupils are equal, reactive, sclerae are anicteric, neck is supple, no neck rigidity, unable to appreciate neck veins distension, no carotid bruit, dry MM CV - regular heart sounds, no murmurs, distant Chest - scattered coarse breath sounds b/l, decreased air entry at bases, no wheezes Abdomen - soft, obese, non-tender, BS present, unable to appreciate hepatomegaly , nor splenomegaly Skin - no rashes, dusky toes Extremities - warm, trace edema, + peripheral pulses, no clubbing Neuro - awake, follows commands, moves all extremities Line: Central Venous Catheter Side: Right Location: Subclavian A/P Assessment and Plan ASSESSMENT: Acute on chronic hypoxemic respiratory failure - extubated, but BPAP dependent Bilateral pneumonia - resolved, afebrile, minimal leukocytosis, cultures are negative to date Underlying COPD with exacerbation - resolved Obesity hypoventilation syndrome and obstructive sleep apnea Anxiety/depression/panic attack Super Morbid obesity Agitated Delirium Hypertension PLAN: - Unfortunately patient is BPAP dependent. Will attempt few hours on HFNC at 40 L/min but I anticipate that she will require re-intubation due to the fact that I've seen no improvement in her respiratory status after extubation - Off antibiotics - Off steroids - Lasix stopped - Off dobutamine with good CVO2 - Continue amlodipine - GI/DVT prophylaxis - Feeding is an issue. Will need either NGT with TF which is not a great idea with continuos BPAP or TPN Edu Rodriguez MD Sep 30, 2017 10:03
[2017-09-30] MEDS ORDERED: LABETALOL HCL 100 MG/20 ML VIAL IV PRN (13:15)
[2017-10-01] VITALS (17 sets, daily range): BP systolic 147–174; BP diastolic 68–94; PULSE 56–90; RESP 14–24; TEMP 97.2–98.8; O2SAT 86–94
[2017-10-01] MEDS: LACTATED RINGER'S 1000 ML INJ 1,000 ML IV SCH ×2 (04:44→12:00)
[2017-10-01 04:46] LABS: AUTOMATED NEUTROPHIL # 6.5 TH/MM3 (1.8-7.7); BASOPHIL % 0.6 % (0.0-2.0); EOSINOPHIL # 0.2 TH/MM3 (0-0.4); EOSINOPHIL % 2.5 % (0.0-4.0); HEMATOCRIT 40.4 % (35.0-46.0); HEMOGLOBIN 12.8 GM/DL (11.6-15.3); LYMPH % 8.5 % (9.0-44.0); LYMPHOCYTE # 0.7 TH/MM3 (1.0-4.8); MEAN CELL VOLUME 80.3 FL (80.0-100.0); MEAN CORPUSCULAR HEMOGLOBIN 25.4 PG (27.0-34.0); MEAN CORPUSCULAR HGB CONC 31.6 % (32.0-36.0); MEAN PLATELET VOLUME 7.9 FL (7.0-11.0); MONO % 7.4 % (0.0-8.0); MONOCYTE # 0.6 TH/MM3 (0-0.9); PLATELET COUNT 219 TH/MM3 (150-450); RED BLOOD COUNT 5.03 MIL/MM3 (4.00-5.30); RED CELL DISTRIBUTION WIDTH 16.5 % (11.6-17.2)
[2017-10-01 05:02] LABS: BICARBONATE 36.1 MEQ/L (21.0-32.0); CALCIUM 8.2 MG/DL (8.5-10.1); CREATININE 0.23 MG/DL (0.50-1.00)
[2017-10-01] MEDS: INSULIN ASPART SUPPLEMENTAL SCALE SQ SCH ×3 (05:31→17:55)
[2017-10-01] MEDS: OLANZapine ODT 10 MG TAB PO SCH ×3 (05:31→22:00)
[2017-10-01] MEDS: SODIUM CHLORIDE 0.9% FLUSH 10 ML FLUSH IV FLUSH SCH ×2 (08:54→21:00)
[2017-10-01] MEDS: ENOXAPARIN SODIUM 40 MG/0.4 ML SYRINGE SQ SCH (08:54)
[2017-10-01] MEDS: PANTOPRAZOLE SODIUM 40 MG VIAL IV PUSH SCH (08:54)
--- NOTE | 2017-10-01 10:06 | HHI.CCPN ---
Subjective Remarks/Hospital Course 67-year-old unfortunate morbidly obese female with past medical history of COPD , history of being oxygen dependent, panic/anxiety/depression disorder who presented with shortness of breathing. Patient stated that shortness of breathing was abrupt and started yesterday. She stated that this was due to her panic attack. She did not think this was due to her COPD. Patient was oxygen dependent but was taken off of oxygen in May. She was told by her provider up in [place] that she was overdosing on oxygen and didn't need oxygen any longer. Previously she was on 4 L of oxygen. She has received some treatment in the emergency department with the BiPAP with some improvement of her respiratory distress. She was admitted to medical floor where she did radiated became severely hypercapnic and hypoxemic. She was transferred emergently to ICU and immediately intubated for respiratory failure. 09/21/17: Remains intubated sedated critically ill. FiO2 had been weaned to 60% PEEP remains at 10. On brief sedation hold able to follow commands 4. Chest x -ray shows bibasilar consolidation. Send sputum culture. DC ceftriaxone. Start cefepime 2 g IV every 8 hours, Levaquin 750 mg every 24 hours 09/22: remains intubated and hypoxic. becomes quite agitated when sedation vacation. cultures NGTD. off pathway. CXR today with worsening lung-space disease as well as left pleural effusion. effusion confirmed on bedside ultrasonography, however, relatively small area of posterior effusion and would be high risk to drain given super morbid obesity. 09/23: Unable to recruit bases with conventional ventilation modes, will convert to APRV. Gas exchange markedly impaired at present. 09/24: Finally getting lung bases recruited on APRV with mean airway pressure almost 30. Needs additional diuresis. Suspect chronic pulmonary artery hypertension. 09/25: Will try to wean but may need tracheostomy. Diuresis complete, now azotemia. 09/26: No events over the night. Patient doing better, FiO2 down to 0.3, P high decreased to 30 this AM. Urine output low yesterday afternoon, gentle iv hydration started. Remains on light sedation due to agitation. Afebrile, off antibiotics. 09/27: No events over the night. Improved urine output, I/O 2558/1275. Afebrile. Switched to PRVC, currently on PEEP of 12, plan to taper it down as tolerated. She opens eyes to voice stimuli and follows some commands. 09/28: Patient did well over the night. This AM sedation stopped, awake, following some commands, anxious at times. Afebrile, I/O 2484/1850. PEEP decreased to 6. 09/29: Patient was extubated yesterday to BPAP. She was tried off BPAP but she did not do well without it. She is currently on 15/8/45%, on low dose precedex, awake, following commands. 09/30: Unfortunately the patient remains BPAP dependent. She is awake, follows commands, denies any pain. BPAP settings improved, on 0.35 FiO2. I/O 964/2600. 10/01: Patient did not tolerate HFNC at 40 L/min and 100% and remains completely BPAP dependent. Off mask desaturates to 70% in less than one minute. Awake, follows commands. I/O 250/2550. ROS - unobtainable, patient is on BPAP Objective Vital Signs Date Time Temp Pulse Resp B/P (MAP) Pulse Ox O2 Delivery O2 Flow Rate FiO2 10/01/17 08:00 97.7 64 24 163/68 (99) 91 10/01/17 07:00 Bi-Pap 30 Intake and Output 10/01/17 10/01/17 10/02/17 08:00 16:00 00:00 Output Total 1000 ml Balance -1000 ml Result Diagram: 10/01/17 0440 10/01/17 0440 Other Results Laboratory Tests Test 09/30/17 15:30 10/01/17 06:16 Blood Gas Puncture Site CL IV Blood Gas Patient Temperature 98.6 98.6 Venous Blood pH 7.25 (7.360-7.400) 7.28 (7.360-7.400) Venous Blood Partial Pressure CO2 84 mmHg (44-48) 79 mmHg (44-48) Venous Blood Partial Pressure O2 44 mmHg (35-40) 42 mmHg (35-40) Venous Blood HCO3 36 mmol/L (22-26) 36 mmol/L (22-26) Venous Blood Oxygen Saturation 72 % (70-76) 70 % (70-76) Venous Blood Oxygen Content 13.0 Vol % (9.0-17.0) 12.7 Vol % (9.0-17.0) Venous Blood Base Excess 8.8 mmol/L (-2-2) 9.0 mmol/L (-2-2) Oxygen Delivery Device BIPAP BiPAP Blood Gas Ventilator Setting IPAP16 EPAP6 IPAP20 / EPAP5 Blood Gas Inspired Oxygen 40 % 30 % Imaging Last 24 hours Impressions Chest X-Ray 09/20/17 1003 Signed Impressions: Service Date/Time: Wednesday, September 20, 2017 10:50 - CONCLUSION: Cardiomegaly. Some consolidation in the right lung base most likely atelectasis. Roni Shah MD Chest X-Ray 09/20/17 0000 Signed Impressions: Service Date/Time: Wednesday, September 20, 2017 22:10 - CONCLUSION: 1. Very limited study. 2. Tip of the endotracheal tube within the right mainstem bronchus. Suggest retracting it approximately 4 cm. 3. Bibasilar densities. This may be in part due to effusions. Vivek Sung Jr., MD Objective Remarks General - elderly lady, morbidly obese, awake, ill appearing, on BPAP HEENT - pupils equal, reactive, sclerae anicteric, neck soft, no rigidity, unable to appreciate neck veins distension, no carotid bruit, dry MM CV - regular S1, S2, no murmurs, distant Chest - coarse breath sounds b/l, decreased air entry at bases, no wheezes, right subclavian CVC (09/23) - site clean, dressing intact Abdomen - soft, obese, non-tender, BS present, unable to appreciate hepatomegaly , nor splenomegaly Skin - no rashes, dusky toes Extremities - warm, trace edema, + peripheral pulses, no clubbing Neuro - awake, follows commands, moves all extremities Date of Insertion: Sep 23, 2017 Line: Central Venous Catheter Side: Right Location: Subclavian A/P Assessment and Plan ASSESSMENT: Acute on chronic hypoxemic, hypercapneic respiratory failure - extubated, but BPAP dependent w/o improvement on minimal FiO2 requirements Bilateral pneumonia - resolved, afebrile, minimal leukocytosis, cultures are negative to date Underlying COPD with exacerbation - resolved Obesity hypoventilation syndrome and obstructive sleep apnea Anxiety/depression/panic attack Super Morbid obesity Agitated Delirium Hypertension PLAN: - Unfortunately patient is BPAP dependent. I anticipate that she will require re -intubation due to the fact that I've seen no improvement in her respiratory status after extubation. Will discuss with her family - Off antibiotics - Off steroids - Lasix stopped - Off dobutamine with good CVO2 - Continue amlodipine - GI/DVT prophylaxis - Feeding remains an issue Addendum: I had long discussion with Mary Miller [phone] regarding his mother's critical condition and lack of improvement despite all our efforts. I discussed about the necessity of re-intubating her and placing a tracheostomy and he understands however he is not sure that that would be his mother's wish. He wants to discuss with his father and patient's sisters who will come by the hospital today to visit Mrs. Miller and he will let us know. I also discussed with him about palliative care. For now, will intubate patient if there is clinical deterioration and if not we will wait to hear back from the family for further guidance regarding care. Palliative consult was placed. Edu Rodriguez MD Oct 01, 2017 10:06
[2017-10-01] MEDS ORDERED: ROCURONIUM INJ 50 MG/5 ML VIAL ONE (10:48)
[2017-10-01] MEDS ORDERED: NOREPINEPHRINE-DEXTROSE DRIP 250 ML IV ONE (10:48)
[2017-10-01] MEDS ORDERED: PROPOFOL 500 MG/50 ML INJ 50 ML ONE (10:48)
[2017-10-01] MEDS: DEXMEDETOMIDINE INJ 1,000 MCG in SODIUM CHLOR 0.9% 250 ML INJ 240 ML IV PRN ×2 (11:59→20:49)
[2017-10-01] MEDS ORDERED: hydrALAZINE HCL 20 MG/ML VIAL IV PUSH PRN (14:00)
[2017-10-02] VITALS (20 sets, daily range): BP systolic 93–158; BP diastolic 46–114; PULSE 66–94; RESP 18–24; TEMP 99.2–100; O2SAT 83–100
[2017-10-02] MEDS ORDERED: ETOMIDATE 20 MG/10 ML VIAL IV PUSH ONE (00:15)
[2017-10-02] MEDS ORDERED: ROCURONIUM INJ 50 MG/5 ML VIAL IV ONE (00:15)
[2017-10-02] MEDS ORDERED: ETOMIDATE 40 MG/20 ML VIAL ONE (01:06)
[2017-10-02] MEDS: PROPOFOL 1000 MG/100 ML IV PRN ×5 (01:15→20:55)
[2017-10-02] MEDS ORDERED: SODIUM BICARBONATE 8.4% INJ 50 MEQ/50 ML SYR ONE (01:27)
--- NOTE | 2017-10-02 02:20 | RADRPT ---
EXAM DATE/TIME: 10/02/2017 01:47 [facility] COMPARISON: CHEST SINGLE AP, September 28, 2017, 5:14. INDICATIONS : Short of breath. MEDICAL HISTORY : Chronic obstructive pulmonary disease SURGICAL HISTORY : Cholecystectomy. Appendectomy. ENCOUNTER: Subsequent ACUITY: 1 week PAIN SCORE: 0/10 LOCATION: Bilateral chest FINDINGS: Endotracheal tube tip in satisfactory position. Right central line overlies the superior vena cava. C ardiomegaly. Basilar airspace disease and small effusions. No pneumothorax. CONCLUSION: 1. Cardiomegaly with basilar airspace disease and pleural effusions similar to September 28. Endotrache al tube and right central line in good position. Cash Landeros MD on October 02, 2017 at 2:14 Board Certified Radiologist. This report was verified electronically.
[2017-10-02] MEDS ORDERED: MIDAZOLAM HCL 2 MG/2 ML VIAL IV PUSH PRN (03:00)
[2017-10-02] MEDS ORDERED: RESP: ALBUTEROL 2.5 MG/3 ML NEB (PRN) NEB (03:15)
--- NOTE | 2017-10-02 03:20 | PD.PROCEDR ---
Procedure Note Procedure Date: 10/02/17 Procedure: Therapeutic bronchoscopy Indication: Difficult to ventilate due to mucus plugging Details of procedure: Procedure was done emergently as patient could not be ventilated following endotracheal intubation. The patient was preoxygenated with 100% FiO2 via endotracheal tube and sedated with propofol drip. I entered the endotracheal tube with a flexible bronchoscope. Moderately blood tinged mucous plugs removed from bilateral lower lobe subsegments using NS 5 ML wash x4. All lung segments were visually inspected and were cleared of any significant blood clots or mucus. The patient tolerated the procedure well without any apparent complications. Elvira Ann MD Oct 02, 2017 03:20
--- NOTE | 2017-10-02 03:20 | PD.PROCEDR ---
Procedure Note Procedure PROCEDURE NOTE PROCEDURE: Endotracheal intubation INDICATION: Acute hypoxemic and hypercapnic respiratory failure despite Bipap 20/8 100% with sats 70s. DETAILS OF PROCEDURE: The patient was placed in optimal position and preoxygenated with 100% FiO2 via Bipap. Oximeter oxygen saturation of 80% was obtained prior to direct laryngoscopy. NC O2 was in place. The patient was administered Etomidate 20 mg IV for sedation and rocuronium 50 mg IV. Oropharyngeal airway was in place and she was bagged. Glidescope produced Grade I view but with anterior airway had difficulty advancing ETT anteriorly enough. Desaturated to 60s and bagged back up to 80%. Attempted with Roy 2 and regular stylet but view was grade III so transitioned back to Glidescope, repositioned and was able to advance 7.5 ETT through cords. Correct placement was confirmed with colorimetric CO2 detector. Breath sounds were equal bilaterally. No sounds auscultated over the stomach. The endotracheal tube was secured with a commercial tube perez at a depth of 25 cm at the lips. The patient was connected to the ventilator and not getting good volumes. Breath sounds diminished on the right. Bagged and suctioned mucous plugs. Proceeding with bronchoscopy due to mucous plugging. Elvira Ann MD Oct 02, 2017 03:20
[2017-10-02] MEDS: RESP: ALBUTEROL 2.5 MG/IPRATROPIUM 0.5 MG NEB (SCH) NEB ×4 (04:00→21:25)
[2017-10-02] MEDS: INSULIN ASPART SUPPLEMENTAL SCALE SQ SCH ×4 (06:00→18:00)
[2017-10-02 06:24] LABS: AUTOMATED NEUTROPHIL # 10.2 TH/MM3 (1.8-7.7); BASOPHIL # 0.1 TH/MM3 (0-0.2); BASOPHIL % 0.6 % (0.0-2.0); EOSINOPHIL # 0.1 TH/MM3 (0-0.4); EOSINOPHIL % 0.5 % (0.0-4.0); HEMATOCRIT 40.9 % (35.0-46.0); HEMOGLOBIN 13.1 GM/DL (11.6-15.3); LYMPH % 6.6 % (9.0-44.0); LYMPHOCYTE # 0.8 TH/MM3 (1.0-4.8); MEAN CELL VOLUME 79.8 FL (80.0-100.0); MEAN CORPUSCULAR HEMOGLOBIN 25.6 PG (27.0-34.0); MEAN PLATELET VOLUME 7.7 FL (7.0-11.0); MONO % 7.8 % (0.0-8.0); MONOCYTE # 0.9 TH/MM3 (0-0.9); NEUT % 84.5 % (16.0-70.0); PLATELET COUNT 230 TH/MM3 (150-450); RED BLOOD COUNT 5.13 MIL/MM3 (4.00-5.30); RED CELL DISTRIBUTION WIDTH 16.9 % (11.6-17.2)
[2017-10-02 06:49] LABS: BICARBONATE 34.7 MEQ/L (21.0-32.0); CALCIUM 8.2 MG/DL (8.5-10.1); CREATININE 0.35 MG/DL (0.50-1.00)
[2017-10-02] MEDS: OLANZapine ODT 10 MG TAB PO SCH ×3 (07:11→21:03)
[2017-10-02] MEDS: SODIUM CHLORIDE 0.9% FLUSH 10 ML FLUSH IV FLUSH SCH ×2 (08:02→20:56)
[2017-10-02] MEDS: CHLORHEXIDINE 0.12% (ORAL KIT) 15 ML CUP MT SCH ×2 (08:02→20:55)
[2017-10-02] MEDS: PANTOPRAZOLE SODIUM 40 MG VIAL IV PUSH SCH (08:03)
[2017-10-02] MEDS: ENOXAPARIN SODIUM 40 MG/0.4 ML SYRINGE SQ SCH (08:03)
[2017-10-02] MEDS: LACTATED RINGER'S 1000 ML INJ 1,000 ML IV SCH ×3 (09:00→20:55)
--- NOTE | 2017-10-02 11:43 | PD.CONS ---
Consult Service Palliative Care . Consult Requested By Dr. Rodriguez . . Primary Care Physician Unknown . Reason for Consultation a. To assist with evaluation and management of symptoms including: dyspnea, agitation, debility b. To assist medical decision maker(s) with: better understanding of current medical conditions; weighing benefits/burdens of medical treatment options; making medical treatment decisions. . HPI History of Present Illness Patient is a 67-year-old female with COPD (previously oxygen dependent) and anxiety/panic/depression disorder who presented to [facility] ED via EMS on 09/20/2017 with complaints of shortness of breath. When EMS arrived, the patient reported a one-day history of mild shortness of breath. Once in the ambulance, patient's SPO2 was noted to be 49% with reliable waveform. Patient placed on cardiac surgeon which showed sinus bradycardia at a rate of 44 on 3 occasions en route to the hospital. EKG with LBBB. Upon arrival to the ED the patient reported her shortness of breath started roughly the day before and she associated with her panic attack because the symptoms were similar. Patient stated she had been very stressed out and did not want to go in to further detail. Per notes, patient was previous on 4L oxygen at home but was taken off of the oxygen abruptly. * WBC: 9.3, hemoglobin 14.2, hematocrit 46.1, platelets 327, neutrophils 78.9% * Sodium: 141, potassium 4.7, chloride 100, carbon dioxide 34.6, glucose 123, calcium 8.3 * Total bilirubin: 0.9, AST 26, ALT 28, alkaline phosphatase 119 * BUN: 16, creatinine 0.72, GFR 80 * Troponin: <0.02 * Total protein: 7.6, albumin 3.2 Patient received nebulizer treatments 2 and Solu-Medrol in the ED with drastic improvement in her respiratory status; agent tolerating 5L oxygen via nasal cannula. A chest x-ray showed cardiomegaly; some consolidation in the right lung base most likely atelectasis. Empiric antibiotics (Rocephin and Azithromycin) were started as well as supplemental oxygen to maintain saturation > 88%. Patient was admitted to medical floor with COPD exacerbation and possible pneumonia. She became severely hypercapnic and hypoxemic acquiring emergent intubation for respiratory failure. CTA negative for pulmonary embolism, showing consolidation. Antibiotics were adjusted and IV steroids were initiated. A follow-up chest x-ray on 09/22/2017 showed worsening lung space disease as well as a left pleural effusion. Patient remains intubated on mechanical ventilation; she becomes significantly agitated with sedation vacation. Cultures remain negative to date. Patient was extubated on 09/28/2017. Patient remains completely BiPAP dependent , unable to tolerate HLNC at 40L/minute. When off BiPAP, the patient desaturates into the 70s within [address] Rodriguez spoke with patient's daughter yesterday 10/01/2017. Regarding mother's critical condition and lack of improvement despite all efforts. The likelihood of reintubation and tracheostomy were discussed. Mary does not know what her mother would want; plans to discuss with family before making a decision. Palliative Care was consulted to assist with symptom management and to discuss with the family the benefits and burdens of her current illnesses and the options regarding future care. Unfortunately, the patient had to be reintubated overnight. There are two sisters and a niece are at bedside. Patient's son (Mary) who lives in [facility] was here last week but had to return for work. He is attempting to locate patient's advanced directives. . Function/Cognitive Trajectory Patient is a morbidly obese female who is from [place] and spends her prieto in [place]. Her , who is 89 years old, remained in [place]. Oseas's son reports the patient was hospitalized 6-8 months ago with similar symptoms. Upon discharge, she was using a CPAP at home but wouldn't use it after she started feeling better. He states since that time his mother has had a significant decline, requiring a walker to ambulate. He asked his mother not to come to [place] alone because he was concerned about her, but she chose to come anyway. . Review of Systems ROS Limitations: Clinical Condition, Intubated, Altered Mental Status Respiratory: COMPLAINS OF: Cough (Dry cough), Shortness of breath Cardiovascular: COMPLAINS OF: Dyspnea on Exertion Past Family Social History Coded Allergies: No Known Drug Allergies (Verified Allergy, Unknown, 09/20/17) Past Medical History COPD History of bleeding ulcer Panic attacks Anxiety Depression History of hypertension - per patient blood pressure is controlled off medication . Past Surgical History Gastric bypass Cauterization due to bleeding ulcer Cholecystectomy Tonsillectomy D&C Hernia repair . Reported Medications Pantoprazole . Current Medications Medications (Trade) Dose Ordered Sig/Sandra Route Start Time Stop Time Status Last Admin (NS Flush) 2 ml BID IV FLUSH 09/20/17 21:00 10/02/17 08:02 (NS Flush) 2 ml UNSCH PRN IV FLUSH 09/20/17 14:00 (Albuterol Neb) 2.5 mg Q2HR NEB PRN INH 09/20/17 14:00 09/29/17 20:45 Propofol 100 ml @ 4.809 mls/ hr TITRATE PRN IV 09/20/17 22:30 10/02/17 01:15 (ZyPREXA ZYDIS ODT) 10 mg Q8HR PO 09/22/17 14:00 10/02/17 07:11 (Norvasc) 10 mg DAILY PO 09/22/17 13:15 10/02/17 08:03 Dexmedetomidine HCl 1000 mcg/ Sodium Chloride 250 ml @ 20.95 mls/ hr TITRATE PRN IV 09/22/17 20:00 10/01/17 20:49 (D50w (Vial) Inj) 50 ml UNSCH PRN IV PUSH 09/23/17 09:00 (Glucagon Inj) 1 mg UNSCH PRN OTHER 09/23/17 09:00 (NovoLOG SUPPLEMENTAL SCALE) 1 Q6HR SQ 09/23/17 09:00 09/25/17 23:55 Potassium Chloride 100 ml @ 50 mls/hr Q2H PRN IV 09/24/17 10:15 Potassium Chloride 100 ml @ 50 mls/hr Q2H PRN IV 09/24/17 10:15 (K-Lyte Cl Eff) 50 meq UNSCH PRN PO 09/24/17 10:15 Potassium Chloride 100 ml @ 25 mls/hr UNSCH PRN IV 09/24/17 10:15 09/24/17 12:39 Potassium Chloride 100 ml @ 50 mls/hr Q2H PRN IV 09/24/17 10:15 Magnesium Sulfate 4 gm/Sodium Chloride 100 ml @ 50 mls/hr UNSCH PRN IV 09/24/17 10:15 (Mag-Ox) 800 mg UNSCH PRN PO 09/24/17 10:15 Magnesium Sulfate 2 gm/Sodium Chloride 100 ml @ 50 mls/hr UNSCH PRN IV 09/24/17 10:15 (K-Phos) 2,000 mg Q4H PRN PO 09/24/17 10:15 Sodium Phosphate 30 mmol/Sodium Chloride 250 ml @ 42 mls/hr UNSCH PRN IV 09/24/17 10:15 (K-Phos) 2,000 mg UNSCH PRN PO/TUBE 09/24/17 10:15 Potassium Phosphate 30 mmol/ Sodium Chloride 260 ml @ 42 mls/hr UNSCH PRN IV 09/24/17 10:15 (Ativan Inj) 1 mg Q6H PRN IV PUSH 09/24/17 11:15 09/25/17 13:38 (Protonix Inj) 20 mg DAILY IV PUSH 09/25/17 10:00 10/02/17 08:03 (Lovenox Inj) 40 mg DAILY SQ 09/26/17 09:00 10/02/17 08:03 Dobutamine HCl 500 mg/Dextrose 250 ml @ 12.26 mls/ hr TITRATE PRN IV 09/25/17 11:15 09/26/17 03:24 Lactated Ringer's 1,000 ml @ 100 mls/hr Q10H IV 09/25/17 17:00 10/02/17 10:54 (Trandate Inj) 10 mg Q6H PRN IV 09/30/17 13:15 09/30/17 20:04 (Apresoline Inj) 10 mg Q4HR PRN IV PUSH 10/01/17 14:00 10/01/17 14:06 (Peridex 0.12% Liq) 15 ml BID@08,20 MT 10/02/17 08:00 10/02/17 08:02 (Versed Inj) 2 mg Q15M PRN IV PUSH 10/02/17 03:00 (Duoneb Neb) 1 ampule Q6HR NEB NEB 10/02/17 04:00 10/02/17 07:59 (Albuterol Neb) 2.5 mg Q2HR NEB PRN NEB 10/02/17 03:15 . Family History Mother had a history of lung cancer. Father had history of heart problems. . Substance Use Tobacco: Patient denies Alcohol: Patient denies Prescription med abuse: Patient denies Illicits: Patient denies . Psychosocial History Patient lives in [place], [place] and comes to [place] in the winter. Patient was to her first for approximately 10 years before . She has one adopted son, Mary, who she adopted when he was only 1-week-old. Patient worked as a teacher. She has been to her current ( Joshua), who is 98 years old, for approximately 35 years. Patient's sister states the patient has distanced herself from her family over the years. Per sister's report, patient has a history of panic attacks/anxiety/depression, compulsive eating and hoarding. . Spiritual/Cultural Factors Evangelical paola . Physical Exam Vital Signs Date Time Temp Pulse Resp B/P (MAP) Pulse Ox O2 Delivery O2 Flow Rate FiO2 10/02/17 10:00 94 10/02/17 08:01 96 60 10/02/17 08:00 88 10/02/17 08:00 99.4 88 20 139/62 (87) 96 10/02/17 08:00 60 10/02/17 07:26 60 10/02/17 07:00 98 Mechanical Ventilator 60 10/02/17 06:00 80 10/02/17 04:36 94 60 10/02/17 04:00 78 10/02/17 04:00 100.0 66 18 120/60 (80) 97 10/02/17 02:00 94 10/02/17 00:00 99.7 92 24 158/114 (129) 83 10/02/17 00:00 68 10/01/17 22:00 90 10/01/17 20:16 86 35 10/01/17 20:00 80 10/01/17 20:00 98.8 72 24 174/78 (110) 90 10/01/17 19:00 74 Bi-Pap 35 10/01/17 18:00 79 10/01/17 16:00 98.5 77 21 163/69 (100) 89 10/01/17 16:00 76 10/01/17 15:59 90 35 10/01/17 14:00 71 10/01/17 12:00 97.2 71 22 159/94 (115) 88 10/01/17 12:00 62 Exam CONSTITUTIONAL/GENERAL: Morbidly obese, elderly female patient currently intubated on mechanical ventilation TUBES/LINES/DRAINS:ETT, OGT, CVL. Urinary catheter SKIN: Ecchymoses on upper extremities. Abrasion across the bridge of nose. Skin temperature appropriate. Not diaphoretic. HEAD: Atraumatic. Normocephalic. EYES: Pupils equal and round and reactive. t. No scleral icterus. No injection or drainage. Fundi not examined. ENT: Hearing grossly normal. Nose without bleeding or purulent drainage. NECK: Trachea midline. Supple, nontender. CARDIOVASCULAR: Regular rate and rhythm without murmurs, gallops, or rubs. . Peripheral pulses symmetric. RESPIRATORY/CHEST: Intubated on mechanical ventilator. Breath sounds coarse bilaterally; diminished air exchange at bases. No wheezes, rales, or rhonchi. GASTROINTESTINAL: Soft, obese, nontender. Bowel sounds present. GENITOURINARY: Without palpable bladder distension. MUSCULOSKELETAL: Extremities without clubbing or mottling. Fingertips are cyanotic, toes dusky. Trace edema LYMPHATICS: No palpable cervical or supraclavicular adenopathy. NEUROLOGICAL: Sedated. Arouses to verbal stimuli. Able to follow simple commands; moving all extremities PSYCHIATRIC: No apparent hallucinations or other psychotic thought process. . Diagnostic Tests Laboratory Laboratory Tests Test 09/30/17 03:55 09/30/17 05:20 09/30/17 15:30 10/01/17 04:40 White Blood Count 9.9 TH/MM3 (4.0-11.0) 8.0 TH/MM3 (4.0-11.0) Red Blood Count 4.90 MIL/MM3 (4.00-5.30) 5.03 MIL/MM3 (4.00-5.30) Hemoglobin 12.6 GM/DL (11.6-15.3) 12.8 GM/DL (11.6-15.3) Hematocrit 39.5 % (35.0-46.0) 40.4 % (35.0-46.0) Mean Corpuscular Volume 80.6 FL (80.0-100.0) 80.3 FL (80.0-100.0) Mean Corpuscular Hemoglobin 25.7 PG (27.0-34.0) 25.4 PG (27.0-34.0) Mean Corpuscular Hemoglobin Concent 31.9 % (32.0-36.0) 31.6 % (32.0-36.0) Red Cell Distribution Width 17.1 % (11.6-17.2) 16.5 % (11.6-17.2) Platelet Count 214 TH/MM3 (150-450) 219 TH/MM3 (150-450) Mean Platelet Volume 8.4 FL (7.0-11.0) 7.9 FL (7.0-11.0) Neutrophils (%) (Auto) 79.6 % (16.0-70.0) 81.0 % (16.0-70.0) Lymphocytes (%) (Auto) 8.4 % (9.0-44.0) 8.5 % (9.0-44.0) Monocytes (%) (Auto) 8.6 % (0.0-8.0) 7.4 % (0.0-8.0) Eosinophils (%) (Auto) 3.1 % (0.0-4.0) 2.5 % (0.0-4.0) Basophils (%) (Auto) 0.3 % (0.0-2.0) 0.6 % (0.0-2.0) Neutrophils # (Auto) 7.9 TH/MM3 (1.8-7.7) 6.5 TH/MM3 (1.8-7.7) Lymphocytes # (Auto) 0.8 TH/MM3 (1.0-4.8) 0.7 TH/MM3 (1.0-4.8) Monocytes # (Auto) 0.9 TH/MM3 (0-0.9) 0.6 TH/MM3 (0-0.9) Eosinophils # (Auto) 0.3 TH/MM3 (0-0.4) 0.2 TH/MM3 (0-0.4) Basophils # (Auto) 0.0 TH/MM3 (0-0.2) 0.0 TH/MM3 (0-0.2) CBC Comment DIFF FINAL DIFF FINAL Differential Comment Blood Urea Nitrogen 11 MG/DL (7-18) 10 MG/DL (7-18) Creatinine 0.24 MG/DL (0.50-1.00) 0.23 MG/DL (0.50-1.00) Random Glucose 96 MG/DL (74-106) 99 MG/DL (74-106) Calcium Level 8.1 MG/DL (8.5-10.1) 8.2 MG/DL (8.5-10.1) Sodium Level 142 MEQ/L (136-145) 142 MEQ/L (136-145) Potassium Level 4.1 MEQ/L (3.5-5.1) 4.1 MEQ/L (3.5-5.1) Chloride Level 104 MEQ/L (98-107) 101 MEQ/L (98-107) Carbon Dioxide Level 35.1 MEQ/L (21.0-32.0) 36.1 MEQ/L (21.0-32.0) Anion Gap 3 MEQ/L (5-15) 5 MEQ/L (5-15) Estimat Glomerular Filtration Rate 285 ML/MIN (>89) 300 ML/MIN (>89) Blood Gas Puncture Site LINE CL Blood Gas Patient Temperature 98.6 98.6 Venous Blood pH 7.29 (7.360-7.400) 7.25 (7.360-7.400) Venous Blood Partial Pressure CO2 74 mmHg (44-48) 84 mmHg (44-48) Venous Blood Partial Pressure O2 43 mmHg (35-40) 44 mmHg (35-40) Venous Blood HCO3 34 mmol/L (22-26) 36 mmol/L (22-26) Venous Blood Oxygen Saturation 70 % (70-76) 72 % (70-76) Venous Blood Oxygen Content 12.5 Vol % (9.0-17.0) 13.0 Vol % (9.0-17.0) Venous Blood Base Excess 7.9 mmol/L (-2-2) 8.8 mmol/L (-2-2) Oxygen Delivery Device BIPAP BIPAP Blood Gas Ventilator Setting IPAP 19/EPAP 6 IPAP16 EPAP6 Blood Gas Inspired Oxygen 35 % 40 % Test 10/01/17 06:16 10/02/17 05:44 10/02/17 06:00 Blood Gas Puncture Site IV RT RADIAL Blood Gas Patient Temperature 98.6 98.6 Venous Blood pH 7.28 (7.360-7.400) Venous Blood Partial Pressure CO2 79 mmHg (44-48) Venous Blood Partial Pressure O2 42 mmHg (35-40) Venous Blood HCO3 36 mmol/L (22-26) Venous Blood Oxygen Saturation 70 % (70-76) Venous Blood Oxygen Content 12.7 Vol % (9.0-17.0) Venous Blood Base Excess 9.0 mmol/L (-2-2) Oxygen Delivery Device BiPAP VENT Blood Gas Ventilator Setting IPAP20 / EPAP5 SEE COMMENT Blood Gas Inspired Oxygen 30 % 60 % Blood Gas HCO3 33 mmol/L (22-26) Blood Gas Base Excess 7.6 mmol/L (-2-2) Blood Gas Oxygen Saturation 93 % (90-100) Arterial Blood pH 7.35 (7.380-7.420) Arterial Blood Partial Pressure CO2 62 mmHg (38-42) Arterial Blood Partial Pressure O2 84 mmHg (61-120) Arterial Blood Oxygen Content 17.6 Vol % (12.0-20.0) Arterial Blood Carboxyhemoglobin 1.8 % (0-4) Arterial Blood Methemoglobin 1.2 % (0-2) Blood Gas Hemoglobin 13.4 G/DL (12.0-16.0) White Blood Count 12.0 TH/MM3 (4.0-11.0) Red Blood Count 5.13 MIL/MM3 (4.00-5.30) Hemoglobin 13.1 GM/DL (11.6-15.3) Hematocrit 40.9 % (35.0-46.0) Mean Corpuscular Volume 79.8 FL (80.0-100.0) Mean Corpuscular Hemoglobin 25.6 PG (27.0-34.0) Mean Corpuscular Hemoglobin Concent 32.0 % (32.0-36.0) Red Cell Distribution Width 16.9 % (11.6-17.2) Platelet Count 230 TH/MM3 (150-450) Mean Platelet Volume 7.7 FL (7.0-11.0) Neutrophils (%) (Auto) 84.5 % (16.0-70.0) Lymphocytes (%) (Auto) 6.6 % (9.0-44.0) Monocytes (%) (Auto) 7.8 % (0.0-8.0) Eosinophils (%) (Auto) 0.5 % (0.0-4.0) Basophils (%) (Auto) 0.6 % (0.0-2.0) Neutrophils # (Auto) 10.2 TH/MM3 (1.8-7.7) Lymphocytes # (Auto) 0.8 TH/MM3 (1.0-4.8) Monocytes # (Auto) 0.9 TH/MM3 (0-0.9) Eosinophils # (Auto) 0.1 TH/MM3 (0-0.4) Basophils # (Auto) 0.1 TH/MM3 (0-0.2) CBC Comment DIFF FINAL Differential Comment Blood Urea Nitrogen 12 MG/DL (7-18) Creatinine 0.35 MG/DL (0.50-1.00) Random Glucose 94 MG/DL (74-106) Calcium Level 8.2 MG/DL (8.5-10.1) Sodium Level 143 MEQ/L (136-145) Potassium Level 3.9 MEQ/L (3.5-5.1) Chloride Level 100 MEQ/L (98-107) Carbon Dioxide Level 34.7 MEQ/L (21.0-32.0) Anion Gap 8 MEQ/L (5-15) Estimat Glomerular Filtration Rate 185 ML/MIN (>89) . Result Diagram: 10/02/17 0600 10/02/17 0600 Procedures 09/20/2017: Intubation 09/23/2017: Right subclavian CVL placement 10/02/2017: Therapeutic bronchoscopy and reintubation . Patient/Family Conference Present at Family Conference: Spoke with patient's son (Mary) and spouse (Joshua) via telephone. Spoke with patient's 2 sisters and nieces at bedside. . . Family Conference Location: Bedside, Telephone Issues Discussed: * Palliative care role, purpose, approach * Additional medical, psychosocial, and spiritual history * Patients general health, functional status, and cognitive changes in the months leading up to the current hospitalization * Patient/family understanding of the current medical problems * Patient/family understanding of prognosis * Patients goals of care as best understood from advance directives and/or conversations and/or values * Current medical treatment options and benefits/burdens of those options * Likely scenarios comparing ongoing aggressive care with a transition to comfort measures only * Questions answered to the best of my ability * Palliative care contact information provided . Assessment and Plan Disease Oriented Problem List: (1) Acute respiratory failure (2) COPD (chronic obstructive pulmonary disease) (3) Hypertension (4) Anxiety and depression (5) History of bleeding ulcers Symptom Scale: (1) Debility (2) Dyspnea (3) Agitation Pertinent Non-Medical Issues Psychosocial: Patient lives in [place], [place] and comes to [place] in the winter. Patient was to her first for approximately 10 years before . She has one adopted son, Mary, who she adopted when he was only 1-week-old. Patient worked as a teacher. She has been to her current (Joshua), who is 98 years old, for approximately 35 years. Patient's sister states the patient has distanced herself from her family over the years. Per sister's report, patient has a history of panic attacks/anxiety/ depression, compulsive eating and hoarding. Spiritual: Evangelical paola Legal: Per [place] statutes, in the absence of written advanced directives healthcare proxy decision-making falls to the patient's spouse. Ethical issues impacting care: No known ethical issues impacting care at this time. . Important Contacts Mary Miller, son: [phone] Joshua Miller, spouse: [phone] . Prognosis Patient is a morbidly obese female with acute on chronic hypoxemic, hypercapnic respiratory failure. She remains critically ill with no significant improvement despite aggressive efforts. Patient had to be reintubated overnight and will likely require tracheostomy, possibly permanent. Given her advance age, body habitus and multiple comorbid conditions, she is high risk for ongoing decline and complications. . Code Status: Full Code Plan * FULL CODE * Decision-making: Per [place] statutes, in the absence of written advanced directives healthcare proxy decision-making falls to the patient's ( Joshua). However, the patient's has opted out of the healthcare decision-making role. Therefore, the patient's son (Mary) is the healthcare proxy decision maker. * Spoke with patient's son (Mary) via telephone. He is states he thinks his mother completed written advanced directives and is attempting to locate them. He provided a fax number ([phone]) at [facility] in [place], [place] where his mother was hospitalized in the past year. * Goals remain aggressive pending further conversations with patient's family. * Palliative care contact information provided to patient's son and sister ( Che). * Contacted patient's spouse (Joshua) via telephone. Unable to leave a message. * Discussed patient with Dr. Liu and nurse, Nils. * Symptom management-dyspnea: Status post bronchoscopy and reintubation overnight 10/02/2017. F/U x-ray showing cardiomegaly with basilar airspace disease and pleural effusions similar to previous imaging on 09/28/17. Off steroids; off antibiotics. Patient will remain high risk for pneumonia, ongoing respiratory issues secondary to his underlying disease processes and debilitation, bedbound status. No active infection at this time, blood cultures negative. * Symptom management-pain: Due to bedbound status, inability to communicate or reposition himself, she is at risk for pain. Abdomen has old scarring noted with scattered ulcerated areas measuring 1.3 cm x 1.0 cm x 0.1 cm. Wound care following * Symptom management-debility: Patient is a morbidly obese female who has declined since a previous hospitalization 68 months ago. Patient's son states his mother is now requiring a walker to ambulate. Patient has reported her activity level is diminished secondary to weakness and dyspnea. * Palliative care will continue to follow this patient throughout his hospitalization to establish trust, assist with symptom management and clarification of medical treatment goals. . Thank you for the opportunity to participate in the care of Ms. Miller. . . Attestation To help prompt me to consider important information that might be impacting today's encounter and assessment, information from prior notes written by myself or my colleagues may have been "brought forward" into today's note. My signature on this note, however, is an attestation that I personally performed the exam, history, and/or decision-making noted today, and, unless otherwise indicated, the interactions with patient, family, and staff as well as the review of records all occurred today. I also attest that the listed assessment and stated plan reflect my best clinical judgment today based on the combination of historical information, prior notes, and today's exam/ interactions. When time spent is documented, it refers only to time spent today by the signer, or if indicated, combined time spent today by collaborating physician/nurse practitioner. . Zeenat Quintanilla Oct 02, 2017 11:43
--- NOTE | 2017-10-02 13:28 | HHI.CCPN ---
Subjective Remarks/Hospital Course 67-year-old unfortunate morbidly obese female with past medical history of COPD , history of being oxygen dependent, panic/anxiety/depression disorder who presented with shortness of breathing. Patient stated that shortness of breathing was abrupt and started yesterday. She stated that this was due to her panic attack. She did not think this was due to her COPD. Patient was oxygen dependent but was taken off of oxygen in May. She was told by her provider up in [place] that she was overdosing on oxygen and didn't need oxygen any longer. Previously she was on 4 L of oxygen. She has received some treatment in the emergency department with the BiPAP with some improvement of her respiratory distress. She was admitted to medical floor where she did radiated became severely hypercapnic and hypoxemic. She was transferred emergently to ICU and immediately intubated for respiratory failure. 09/21/17: Remains intubated sedated critically ill. FiO2 had been weaned to 60% PEEP remains at 10. On brief sedation hold able to follow commands 4. Chest x -ray shows bibasilar consolidation. Send sputum culture. DC ceftriaxone. Start cefepime 2 g IV every 8 hours, Levaquin 750 mg every 24 hours 09/22: remains intubated and hypoxic. becomes quite agitated when sedation vacation. cultures NGTD. off pathway. CXR today with worsening lung-space disease as well as left pleural effusion. effusion confirmed on bedside ultrasonography, however, relatively small area of posterior effusion and would be high risk to drain given super morbid obesity. 09/23: Unable to recruit bases with conventional ventilation modes, will convert to APRV. Gas exchange markedly impaired at present. 09/24: Finally getting lung bases recruited on APRV with mean airway pressure almost 30. Needs additional diuresis. Suspect chronic pulmonary artery hypertension. 09/25: Will try to wean but may need tracheostomy. Diuresis complete, now azotemia. 09/26: No events over the night. Patient doing better, FiO2 down to 0.3, P high decreased to 30 this AM. Urine output low yesterday afternoon, gentle iv hydration started. Remains on light sedation due to agitation. Afebrile, off antibiotics. 09/27: No events over the night. Improved urine output, I/O 2558/1275. Afebrile. Switched to PRVC, currently on PEEP of 12, plan to taper it down as tolerated. She opens eyes to voice stimuli and follows some commands. 09/28: Patient did well over the night. This AM sedation stopped, awake, following some commands, anxious at times. Afebrile, I/O 2484/1850. PEEP decreased to 6. 09/29: Patient was extubated yesterday to BPAP. She was tried off BPAP but she did not do well without it. She is currently on 15/8/45%, on low dose precedex, awake, following commands. 09/30: Unfortunately the patient remains BPAP dependent. She is awake, follows commands, denies any pain. BPAP settings improved, on 0.35 FiO2. I/O 964/2600. 10/01: Patient did not tolerate HFNC at 40 L/min and 100% and remains completely BPAP dependent. Off mask desaturates to 70% in less than one minute. Awake, follows commands. I/O 250/2550. 10/02: Required reintubation. Palliative Care discussing care goals with patient. Objective Vital Signs Date Time Temp Pulse Resp B/P (MAP) Pulse Ox O2 Delivery O2 Flow Rate FiO2 10/02/17 12:00 60 10/02/17 12:00 89 10/02/17 12:00 99.7 18 93/46 (62) 99 10/02/17 07:00 Mechanical Ventilator Intake and Output 10/02/17 10/02/17 10/03/17 08:00 16:00 00:00 Intake Total 562 ml 100 ml Output Total 1050 ml Balance -488 ml 100 ml Result Diagram: 10/02/17 0600 10/02/17 0600 Other Results Laboratory Tests Test 10/02/17 05:44 Blood Gas Puncture Site RT RADIAL Blood Gas Patient Temperature 98.6 Blood Gas HCO3 33 mmol/L (22-26) Blood Gas Base Excess 7.6 mmol/L (-2-2) Blood Gas Oxygen Saturation 93 % (90-100) Arterial Blood pH 7.35 (7.380-7.420) Arterial Blood Partial Pressure CO2 62 mmHg (38-42) Arterial Blood Partial Pressure O2 84 mmHg (61-120) Arterial Blood Oxygen Content 17.6 Vol % (12.0-20.0) Arterial Blood Carboxyhemoglobin 1.8 % (0-4) Arterial Blood Methemoglobin 1.2 % (0-2) Blood Gas Hemoglobin 13.4 G/DL (12.0-16.0) Oxygen Delivery Device VENT Blood Gas Ventilator Setting SEE COMMENT Blood Gas Inspired Oxygen 60 % Imaging Last 24 hours Impressions Chest X-Ray 09/20/17 1003 Signed Impressions: Service Date/Time: Wednesday, September 20, 2017 10:50 - CONCLUSION: Cardiomegaly. Some consolidation in the right lung base most likely atelectasis. Roni Shah MD Chest X-Ray 09/20/17 0000 Signed Impressions: Service Date/Time: Wednesday, September 20, 2017 22:10 - CONCLUSION: 1. Very limited study. 2. Tip of the endotracheal tube within the right mainstem bronchus. Suggest retracting it approximately 4 cm. 3. Bibasilar densities. This may be in part due to effusions. Vivek Sung Jr., MD Objective Remarks General - elderly lady, morbidly obese, intubated HEENT - pupils equal, reactive, sclerae anicteric, neck soft, no rigidity, unable to appreciate neck veins distension, no carotid bruit, dry MM CV - regular S1, S2, no murmurs, distant Chest - coarse breath sounds b/l, decreased air entry at bases, no wheezes, right subclavian CVC (09/23) - site clean, dressing intact Abdomen - soft, obese, non-tender, BS present, unable to appreciate hepatomegaly , nor splenomegaly Skin - no rashes, dusky toes Extremities - warm, trace edema, + peripheral pulses, no clubbing Neuro - sedated, follows commands, moves all extremities Date of Insertion: Sep 23, 2017 Line: Central Venous Catheter Side: Right Location: Subclavian A/P Assessment and Plan ASSESSMENT: Acute on chronic hypoxemic, hypercapneic respiratory failure - ventilator dependent. Bilateral pneumonia - resolved, afebrile, minimal leukocytosis, cultures are negative to date Underlying COPD with exacerbation - resolved Obesity hypoventilation syndrome and obstructive sleep apnea Anxiety/depression/panic attack Super Morbid obesity Agitated Delirium Hypertension PLAN: - Unfortunately patient is vent dependent. - Off antibiotics - Off steroids - Lasix stopped - Off dobutamine with good CVO2 - Continue amlodipine - GI/DVT prophylaxis - Feeding remains an issue Addendum: I had long discussion with Mary Miller [phone] regarding his mother's critical condition and lack of improvement despite all our efforts. I discussed about the necessity of re-intubating her and placing a tracheostomy and he understands however he is not sure that that would be his mother's wish. He wants to discuss with his father and patient's sisters who will come by the hospital today to visit Mrs. Miller and he will let us know. I also discussed with him about palliative care. For now, will intubate patient if there is clinical deterioration and if not we will wait to hear back from the family for further guidance regarding care. Palliative Care is seeing. Teddy Jerry MD Oct 02, 2017 13:28
[2017-10-03] VITALS (17 sets, daily range): BP systolic 115–152; BP diastolic 52–65; PULSE 72–91; RESP 18–19; TEMP 98.8–99.1; O2SAT 92–100
[2017-10-03] MEDS: PROPOFOL 1000 MG/100 ML IV PRN ×7 (01:12→22:20)
[2017-10-03] MEDS: RESP: ALBUTEROL 2.5 MG/IPRATROPIUM 0.5 MG NEB (SCH) NEB ×4 (04:03→20:37)
[2017-10-03] MEDS: LACTATED RINGER'S 1000 ML INJ 1,000 ML IV SCH ×2 (05:02→15:33)
[2017-10-03] MEDS: OLANZapine ODT 10 MG TAB PO SCH ×3 (05:02→22:18)
[2017-10-03] MEDS: INSULIN ASPART SUPPLEMENTAL SCALE SQ SCH ×5 (06:00→23:09)
[2017-10-03] MEDS: CHLORHEXIDINE 0.12% (ORAL KIT) 15 ML CUP MT SCH ×2 (08:34→20:00)
[2017-10-03] MEDS: PANTOPRAZOLE SODIUM 40 MG VIAL IV PUSH SCH (08:36)
[2017-10-03] MEDS: ENOXAPARIN SODIUM 40 MG/0.4 ML SYRINGE SQ SCH (08:37)
[2017-10-03] MEDS: SODIUM CHLORIDE 0.9% FLUSH 10 ML FLUSH IV FLUSH SCH ×2 (08:37→21:00)
--- NOTE | 2017-10-03 08:48 | HHI.CCPN ---
Subjective Remarks/Hospital Course 67-year-old unfortunate morbidly obese female with past medical history of COPD , history of being oxygen dependent, panic/anxiety/depression disorder who presented with shortness of breathing. Patient stated that shortness of breathing was abrupt and started yesterday. She stated that this was due to her panic attack. She did not think this was due to her COPD. Patient was oxygen dependent but was taken off of oxygen in May. She was told by her provider up in [place] that she was overdosing on oxygen and didn't need oxygen any longer. Previously she was on 4 L of oxygen. She has received some treatment in the emergency department with the BiPAP with some improvement of her respiratory distress. She was admitted to medical floor where she did radiated became severely hypercapnic and hypoxemic. She was transferred emergently to ICU and immediately intubated for respiratory failure. 09/21/17: Remains intubated sedated critically ill. FiO2 had been weaned to 60% PEEP remains at 10. On brief sedation hold able to follow commands 4. Chest x -ray shows bibasilar consolidation. Send sputum culture. DC ceftriaxone. Start cefepime 2 g IV every 8 hours, Levaquin 750 mg every 24 hours 09/22: remains intubated and hypoxic. becomes quite agitated when sedation vacation. cultures NGTD. off pathway. CXR today with worsening lung-space disease as well as left pleural effusion. effusion confirmed on bedside ultrasonography, however, relatively small area of posterior effusion and would be high risk to drain given super morbid obesity. 09/23: Unable to recruit bases with conventional ventilation modes, will convert to APRV. Gas exchange markedly impaired at present. 09/24: Finally getting lung bases recruited on APRV with mean airway pressure almost 30. Needs additional diuresis. Suspect chronic pulmonary artery hypertension. 09/25: Will try to wean but may need tracheostomy. Diuresis complete, now azotemia. 09/26: No events over the night. Patient doing better, FiO2 down to 0.3, P high decreased to 30 this AM. Urine output low yesterday afternoon, gentle iv hydration started. Remains on light sedation due to agitation. Afebrile, off antibiotics. 09/27: No events over the night. Improved urine output, I/O 2558/1275. Afebrile. Switched to PRVC, currently on PEEP of 12, plan to taper it down as tolerated. She opens eyes to voice stimuli and follows some commands. 09/28: Patient did well over the night. This AM sedation stopped, awake, following some commands, anxious at times. Afebrile, I/O 2484/1850. PEEP decreased to 6. 09/29: Patient was extubated yesterday to BPAP. She was tried off BPAP but she did not do well without it. She is currently on 15/8/45%, on low dose precedex, awake, following commands. 09/30: Unfortunately the patient remains BPAP dependent. She is awake, follows commands, denies any pain. BPAP settings improved, on 0.35 FiO2. I/O 964/2600. 10/01: Patient did not tolerate HFNC at 40 L/min and 100% and remains completely BPAP dependent. Off mask desaturates to 70% in less than one minute. Awake, follows commands. I/O 250/2550. 10/02: Required reintubation. Palliative Care discussing care goals with patient. 10/03: Currently remains on vent support, FiO2 60%. Wakes up easily, follows commands. Palliative care is following to assist with goals of care Objective Vital Signs Date Time Temp Pulse Resp B/P (MAP) Pulse Ox O2 Delivery O2 Flow Rate FiO2 10/03/17 06:00 76 10/03/17 04:04 97 60 10/03/17 04:00 99.0 18 152/65 (94) 10/02/17 19:00 Mechanical Ventilator Intake and Output 10/03/17 10/03/17 10/04/17 08:00 16:00 00:00 Intake Total 1697 ml Output Total 525 ml Balance 1172 ml Result Diagram: 10/02/17 0600 10/02/17 0600 Other Results Laboratory Tests Test 10/02/17 23:46 Blood Gas Puncture Site RT RADIAL Blood Gas Patient Temperature 98.6 Blood Gas HCO3 35 mmol/L (22-26) Blood Gas Base Excess 7.6 mmol/L (-2-2) Blood Gas Oxygen Saturation 72 % (90-100) Arterial Blood pH 7.21 (7.380-7.420) Arterial Blood Partial Pressure CO2 91 mmHg (38-42) Arterial Blood Partial Pressure O2 47 mmHg (61-120) Arterial Blood Oxygen Content 14.6 Vol % (12.0-20.0) Arterial Blood Carboxyhemoglobin 2.0 % (0-4) Arterial Blood Methemoglobin 0.9 % (0-2) Blood Gas Hemoglobin 14.4 G/DL (12.0-16.0) Oxygen Delivery Device BIPAP Blood Gas Ventilator Setting SEE COMENT Blood Gas Inspired Oxygen 80 % Imaging Last 24 hours Impressions Chest X-Ray 09/20/17 1003 Signed Impressions: Service Date/Time: Wednesday, September 20, 2017 10:50 - CONCLUSION: Cardiomegaly. Some consolidation in the right lung base most likely atelectasis. Roni Shah MD Chest X-Ray 09/20/17 0000 Signed Impressions: Service Date/Time: Wednesday, September 20, 2017 22:10 - CONCLUSION: 1. Very limited study. 2. Tip of the endotracheal tube within the right mainstem bronchus. Suggest retracting it approximately 4 cm. 3. Bibasilar densities. This may be in part due to effusions. Vivek Sung Jr., MD Objective Remarks General - Morbidly obese, intubated HEENT - BALDOMERO, neck soft, no rigidity, unable to appreciate neck veins distension , no carotid bruit, dry MM CV - Regular S1, S2, no murmurs, distant Chest - coarse breath sounds b/l, decreased air entry at bases, no wheezes Abdomen - soft, obese, non-tender, BS present, unable to appreciate hepatomegaly or splenomegaly Skin - no rashes, dusky toes Extremities - warm, trace edema, + peripheral pulses, no clubbing Neuro - Opens eyes spontaneously, follows commands, moves all extremities Date of Insertion: Sep 23, 2017 Line: Central Venous Catheter Side: Right Location: Subclavian A/P Assessment and Plan ASSESSMENT: Acute on chronic hypoxemic, hypercapnic respiratory failure Bilateral pneumonia COPD with exacerbation Obesity hypoventilation syndrome and obstructive sleep apnea Anxiety/depression/panic attack Super Morbid obesity Agitated Delirium Hypertension PLAN: - Reintubated 10/01/17, apparently difficult airway-see intubation note from Dr. Ann - Remains on 60% FiO2, chest x-ray with bibasilar infiltrates/effusion - Off antibiotics , Off steroids. Off lasix - Palliative care following to address goals of care. Await family decision - Will be difficult to wean off vent without trach - Off dobutamine with good CVO2 - Continue amlodipine - GI/DVT prophylaxis - Continue tube feeds Addendum: Dr. Rodriguez had long discussion with Mary Miller [phone] regarding his mother' s critical condition and lack of improvement despite all our efforts, discussed about the necessity of re-intubating her and placing a tracheostomy and he understands however he is not sure that that would be his mother's wish. He wants to discuss with his father and patient's sisters who will come by the hospital today to visit Mrs. Miller and he will let us know. Palliative care following CCT 35 min Ronny Knight MD Oct 03, 2017 08:48
[2017-10-03] MEDS: NYSTATIN 100,000 U/GM PWD 15 GM BTL TOPICAL SCH ×2 (09:00→21:00)
--- NOTE | 2017-10-03 17:19 | HHI.HCPN ---
Reason for visit a. To assist with evaluation and management of symptoms including: dyspnea, agitation, debility b. To assist medical decision maker(s) with: better understanding of current medical conditions; weighing benefits/burdens of medical treatment options; making medical treatment decisions. . Subjective/Interval History Patient remains sedated on propofol and intubated on mechanical ventilation s/p reintubation on 10/01/2017. She remains on 60% FiO2. Chest x-ray on 10/02/2017 with bibasilar infiltrates and pleural effusions-and water to previous image on 09/28/2017. Patient will be difficult to wean without tracheostomy due to multiple comorbid conditions, morbid obesity and baseline performance status. Afebrile. Off antibiotics and steroids. Off diuretics. Earlier this morning patient was able to open eyes and follows some simple commands, showing no s/s nonverbal pain or distress. However, later in the day the patient's became quite agitated when her sedation was titrated downward. Palliative care spoke with both the agents spouse (Joshua) and son (Mary) via telephone several times today, and met with the patient's extended family who was at bedside 3 times throughout the day. Family was updated on the patient's clinical condition; the process of cardiopulmonary resuscitation was discussed at length. All family members verbalized understanding that the patient remains critically ill and her overall prognosis is quite poor. They feel that even if the patient were to survive this hospitalization, she would would not do well in rehabilitation. They do not believe she would want to be dependent on others for her care. The patient's son and have decided not to pursue further aggressive interventions. Patient's CODE STATUS was changed to NO CODE-DNR/DNI. Patient's son and spouse are out of state. We are awaiting signed exhibits before proceeding with compassionate withdrawal of artificial life support which will likely take place tomorrow 10/04/2017. Discussed with patient's bedside nurse (Nils) and Dr. Knight. . Advance Directives Advance Directive Specifics Significant change in goals: CODE STATUS change to NO CODE; likely compassionate withdrawal of artificial life support and upcoming days. . Objective Vital Signs Date Time Temp Pulse Resp B/P (MAP) Pulse Ox O2 Delivery O2 Flow Rate FiO2 10/03/17 16:00 98.8 78 18 116/53 (74) 92 10/03/17 16:00 60 10/03/17 16:00 78 10/03/17 15:57 92 55 10/03/17 14:00 76 10/03/17 12:00 60 10/03/17 12:00 95 55 10/03/17 12:00 82 10/03/17 12:00 99.0 82 18 122/61 (81) 95 10/03/17 10:00 81 10/03/17 09:10 96 55 10/03/17 08:00 99.0 72 18 115/55 (75) 95 10/03/17 08:00 60 10/03/17 08:00 72 10/03/17 07:00 95 Mechanical Ventilator 60 10/03/17 06:00 76 10/03/17 04:04 97 60 10/03/17 04:00 83 10/03/17 04:00 99.0 83 18 152/65 (94) 95 10/03/17 04:00 60 10/03/17 02:00 79 10/03/17 00:00 99.1 89 18 138/52 (80) 94 10/03/17 00:00 60 10/03/17 00:00 89 10/02/17 23:46 93 60 10/02/17 22:00 88 10/02/17 21:26 94 60 10/02/17 20:00 90 10/02/17 20:00 99.3 90 18 122/60 (80) 95 10/02/17 20:00 60 10/02/17 19:00 95 Mechanical Ventilator 60 10/02/17 18:00 90 Intake & Output 10/03/17 10/03/17 07:00 19:00 Intake Total 2797 ml 1200 ml Output Total 525 ml Balance 2272 ml 1200 ml Intake IV Total 2300 ml 1200 ml Tube Feeding 417 ml Other 80 ml Output Urine Total 525 ml # Bowel Movements 0 . Physical Exam CONSTITUTIONAL/GENERAL: Morbidly obese, elderly female patient currently intubated on mechanical ventilation TUBES/LINES/DRAINS:ETT, OGT, CVL. Urinary catheter SKIN: Ecchymoses on upper extremities. Abrasion across the bridge of nose. Skin temperature appropriate. Not diaphoretic. HEAD: Atraumatic. Normocephalic. EYES: Pupils equal and round and reactive. No scleral icterus. No injection or drainage. Fundi not examined. ENT: Hearing grossly normal. Nose without bleeding or purulent drainage. NECK: Trachea midline. CARDIOVASCULAR: Regular rate and rhythm without murmurs, gallops, or rubs. . Peripheral pulses symmetric. RESPIRATORY/CHEST: Intubated on mechanical ventilator. Breath sounds coarse bilaterally; diminished air exchange at bases. No wheezes, rales, or rhonchi. GASTROINTESTINAL: Soft, obese, nontender. Bowel sounds present. GENITOURINARY: Without palpable bladder distension. MUSCULOSKELETAL: Extremities without clubbing or mottling. Fingertips are cyanotic, toes dusky. Trace edema LYMPHATICS: No palpable cervical or supraclavicular adenopathy. NEUROLOGICAL: Sedated. Opens eyes spontaneously Able to follow simple commands ; moving all extremities PSYCHIATRIC: No apparent hallucinations or other psychotic thought process. . Diagnostic Tests Laboratory Laboratory Tests Test 10/01/17 04:40 10/01/17 06:16 10/02/17 05:44 10/02/17 06:00 White Blood Count 8.0 TH/MM3 (4.0-11.0) 12.0 TH/MM3 (4.0-11.0) Red Blood Count 5.03 MIL/MM3 (4.00-5.30) 5.13 MIL/MM3 (4.00-5.30) Hemoglobin 12.8 GM/DL (11.6-15.3) 13.1 GM/DL (11.6-15.3) Hematocrit 40.4 % (35.0-46.0) 40.9 % (35.0-46.0) Mean Corpuscular Volume 80.3 FL (80.0-100.0) 79.8 FL (80.0-100.0) Mean Corpuscular Hemoglobin 25.4 PG (27.0-34.0) 25.6 PG (27.0-34.0) Mean Corpuscular Hemoglobin Concent 31.6 % (32.0-36.0) 32.0 % (32.0-36.0) Red Cell Distribution Width 16.5 % (11.6-17.2) 16.9 % (11.6-17.2) Platelet Count 219 TH/MM3 (150-450) 230 TH/MM3 (150-450) Mean Platelet Volume 7.9 FL (7.0-11.0) 7.7 FL (7.0-11.0) Neutrophils (%) (Auto) 81.0 % (16.0-70.0) 84.5 % (16.0-70.0) Lymphocytes (%) (Auto) 8.5 % (9.0-44.0) 6.6 % (9.0-44.0) Monocytes (%) (Auto) 7.4 % (0.0-8.0) 7.8 % (0.0-8.0) Eosinophils (%) (Auto) 2.5 % (0.0-4.0) 0.5 % (0.0-4.0) Basophils (%) (Auto) 0.6 % (0.0-2.0) 0.6 % (0.0-2.0) Neutrophils # (Auto) 6.5 TH/MM3 (1.8-7.7) 10.2 TH/MM3 (1.8-7.7) Lymphocytes # (Auto) 0.7 TH/MM3 (1.0-4.8) 0.8 TH/MM3 (1.0-4.8) Monocytes # (Auto) 0.6 TH/MM3 (0-0.9) 0.9 TH/MM3 (0-0.9) Eosinophils # (Auto) 0.2 TH/MM3 (0-0.4) 0.1 TH/MM3 (0-0.4) Basophils # (Auto) 0.0 TH/MM3 (0-0.2) 0.1 TH/MM3 (0-0.2) CBC Comment DIFF FINAL DIFF FINAL Differential Comment Blood Urea Nitrogen 10 MG/DL (7-18) 12 MG/DL (7-18) Creatinine 0.23 MG/DL (0.50-1.00) 0.35 MG/DL (0.50-1.00) Random Glucose 99 MG/DL (74-106) 94 MG/DL (74-106) Calcium Level 8.2 MG/DL (8.5-10.1) 8.2 MG/DL (8.5-10.1) Sodium Level 142 MEQ/L (136-145) 143 MEQ/L (136-145) Potassium Level 4.1 MEQ/L (3.5-5.1) 3.9 MEQ/L (3.5-5.1) Chloride Level 101 MEQ/L (98-107) 100 MEQ/L (98-107) Carbon Dioxide Level 36.1 MEQ/L (21.0-32.0) 34.7 MEQ/L (21.0-32.0) Anion Gap 5 MEQ/L (5-15) 8 MEQ/L (5-15) Estimat Glomerular Filtration Rate 300 ML/MIN (>89) 185 ML/MIN (>89) Blood Gas Puncture Site IV RT RADIAL Blood Gas Patient Temperature 98.6 98.6 Venous Blood pH 7.28 (7.360-7.400) Venous Blood Partial Pressure CO2 79 mmHg (44-48) Venous Blood Partial Pressure O2 42 mmHg (35-40) Venous Blood HCO3 36 mmol/L (22-26) Venous Blood Oxygen Saturation 70 % (70-76) Venous Blood Oxygen Content 12.7 Vol % (9.0-17.0) Venous Blood Base Excess 9.0 mmol/L (-2-2) Oxygen Delivery Device BiPAP VENT Blood Gas Ventilator Setting IPAP20 / EPAP5 SEE COMMENT Blood Gas Inspired Oxygen 30 % 60 % Blood Gas HCO3 33 mmol/L (22-26) Blood Gas Base Excess 7.6 mmol/L (-2-2) Blood Gas Oxygen Saturation 93 % (90-100) Arterial Blood pH 7.35 (7.380-7.420) Arterial Blood Partial Pressure CO2 62 mmHg (38-42) Arterial Blood Partial Pressure O2 84 mmHg (61-120) Arterial Blood Oxygen Content 17.6 Vol % (12.0-20.0) Arterial Blood Carboxyhemoglobin 1.8 % (0-4) Arterial Blood Methemoglobin 1.2 % (0-2) Blood Gas Hemoglobin 13.4 G/DL (12.0-16.0) Test 10/02/17 23:46 Blood Gas Puncture Site RT RADIAL Blood Gas Patient Temperature 98.6 Blood Gas HCO3 35 mmol/L (22-26) Blood Gas Base Excess 7.6 mmol/L (-2-2) Blood Gas Oxygen Saturation 72 % (90-100) Arterial Blood pH 7.21 (7.380-7.420) Arterial Blood Partial Pressure CO2 91 mmHg (38-42) Arterial Blood Partial Pressure O2 47 mmHg (61-120) Arterial Blood Oxygen Content 14.6 Vol % (12.0-20.0) Arterial Blood Carboxyhemoglobin 2.0 % (0-4) Arterial Blood Methemoglobin 0.9 % (0-2) Blood Gas Hemoglobin 14.4 G/DL (12.0-16.0) Oxygen Delivery Device BIPAP Blood Gas Ventilator Setting SEE COMENT Blood Gas Inspired Oxygen 80 % Result Diagram: 10/02/17 0600 10/02/17 0600 Procedures 09/20/2017: Intubation 09/23/2017: Right subclavian CVL placement 10/02/2017: Therapeutic bronchoscopy and reintubation . Assessment and Plan Disease Oriented Problem List: (1) Acute respiratory failure (2) COPD (chronic obstructive pulmonary disease) (3) Hypertension (4) Anxiety and depression (5) History of bleeding ulcers Symptom Scale: (1) Debility (2) Dyspnea (3) Agitation Pertinent Non-Medical Issues Psychosocial: Patient lives in [place], [place] and comes to [place] in the winter. Patient was to her first for approximately 10 years before . She has one adopted son, Mary, who she adopted when he was only 1-week-old. Patient worked as a teacher. She has been to her current (Joshua), who is 98 years old, for approximately 35 years. Patient's sister states the patient has distanced herself from her family over the years. Per sister's report, patient has a history of panic attacks/anxiety/ depression, compulsive eating and hoarding. Spiritual: Pentecostalism [place] Legal: Per [place] statutes, in the absence of written advanced directives healthcare proxy decision-making falls to the patient's spouse. Ethical issues impacting care: No known ethical issues impacting care at this time. . Important Contacts Mary Miller son: [phone] Joshua Miller, spouse: [phone] . Prognosis Patient is a morbidly obese female with acute on chronic hypoxemic, hypercapnic respiratory failure. She remains critically ill with no significant improvement despite aggressive efforts. Patient had to be reintubated overnight and will likely require tracheostomy, possibly permanent. Given her advance age, body habitus and multiple comorbid conditions, she is high risk for ongoing decline and complications. . Code Status: Full Code Plan * NO CODE- DNR/DNI * Decision-making: Per [place] statutes, in the absence of written advanced directives healthcare proxy decision-making falls to the patient's ( Joshua). Patient's spouse is unsure if he is comfortable making health care decision for his independently, therefore recommendations for joint decision-making with patient's son. * Discussed with patient's bedside nurse (Nils) and Dr. Knight. Dr. Knight is aware of plan to transition to comfort focused care, likely tomorrow 10/04/17 * Symptom management-dyspnea: Status post bronchoscopy and reintubation overnight 10/02/2017. Patient will difficult to wean from vent without tracheostomy F/U x-ray showing cardiomegaly with basilar airspace disease and pleural effusions similar to previous imaging on 09/28/17. Off steroids; off antibiotics. Patient will remain high risk for pneumonia, ongoing respiratory issues secondary to his underlying disease processes and debilitation, bedbound status. No active infection at this time, blood cultures negative. * Symptom management-pain: Due to bedbound status, inability to communicate or reposition himself, she is at risk for pain. Abdomen has old scarring noted with scattered ulcerated areas measuring 1.3 cm x 1.0 cm x 0.1 cm. Wound care following * Symptom management-debility: Patient is a morbidly obese female who has declined since a previous hospitalization 68 months ago. Patient's son states his mother is now requiring a walker to ambulate. Patient has reported her activity level is diminished secondary to weakness and dyspnea. * Palliative care spoke with both the agents spouse (Joshua) and son (Mary) via telephone several times today, and met with the patient's extended family who was at bedside 3 times throughout the day. Family was updated on the patient's clinical condition; the process of cardiopulmonary resuscitation was discussed at length. All family members verbalized understanding that the patient remains critically ill and her overall prognosis is quite poor. They feel that even if the patient were to survive this hospitalization, she would would not do well in rehabilitation. They do not believe she would want to be dependent on others for her care. The patient's son and have decided not to pursue further aggressive interventions. Patient's CODE STATUS was changed to NO CODE-DNR/DNI. Patient's son and spouse are out of state. We are awaiting signed exhibits before proceeding with compassionate withdrawal of artificial life support which will likely take place tomorrow 10/04/2017. * Palliative care will continue to follow this patient throughout his hospitalization to establish trust, assist with symptom management and clarification of medical treatment goals. . Attestation To help prompt me to consider important information that might be impacting today's encounter and assessment, information from prior notes written by myself or my colleagues may have been "brought forward" into today's note. My signature on this note, however, is an attestation that I personally performed the exam, history, and/or decision-making noted today, and, unless otherwise indicated, the interactions with patient, family, and staff as well as the review of records all occurred today. I also attest that the listed assessment and stated plan reflect my best clinical judgment today based on the combination of historical information, prior notes, and today's exam/ interactions. When time spent is documented, it refers only to time spent today by the signer, or if indicated, combined time spent today by collaborating physician/nurse practitioner. . Zeenat Quintanilla Oct 03, 2017 17:18
[2017-10-04] VITALS (9 sets, daily range): BP systolic 97–125; BP diastolic 55–65; PULSE 65–85; RESP 18; TEMP 97.9–98.8; O2SAT 93–96
[2017-10-04] MEDS: LACTATED RINGER'S 1000 ML INJ 1,000 ML IV SCH ×2 (01:00→09:53)
[2017-10-04] MEDS: PROPOFOL 1000 MG/100 ML IV PRN ×3 (01:26→09:41)
[2017-10-04] MEDS: RESP: ALBUTEROL 2.5 MG/IPRATROPIUM 0.5 MG NEB (SCH) NEB ×2 (03:50→08:14)
[2017-10-04] MEDS: INSULIN ASPART SUPPLEMENTAL SCALE SQ SCH (05:12)
[2017-10-04] MEDS: OLANZapine ODT 10 MG TAB PO SCH (06:00)
[2017-10-04] MEDS: PANTOPRAZOLE SODIUM 40 MG VIAL IV PUSH SCH (09:39)
[2017-10-04] MEDS: SODIUM CHLORIDE 0.9% FLUSH 10 ML FLUSH IV FLUSH SCH (09:41)
[2017-10-04] MEDS: ENOXAPARIN SODIUM 40 MG/0.4 ML SYRINGE SQ SCH (09:42)
[2017-10-04] MEDS: NYSTATIN 100,000 U/GM PWD 15 GM BTL TOPICAL SCH (09:42)
[2017-10-04] MEDS: CHLORHEXIDINE 0.12% (ORAL KIT) 15 ML CUP MT SCH (09:42)
[2017-10-04] MEDS ORDERED: HYOSCYAMINE 0.5 MG/ML AMP IV PUSH ONE (10:15)
[2017-10-04] MEDS ORDERED: LORazepam 2 MG/ML VIAL IV PUSH ONE ×2 (10:15→10:45)
[2017-10-04] MEDS ORDERED: MORPHINE SULFATE 8 MG/ML INJ IV PUSH ONE (10:15)
--- NOTE | 2017-10-04 10:15 | HHI.CCPN ---
Subjective Remarks/Hospital Course 67-year-old unfortunate morbidly obese female with past medical history of COPD , history of being oxygen dependent, panic/anxiety/depression disorder who presented with shortness of breathing. Patient stated that shortness of breathing was abrupt and started yesterday. She stated that this was due to her panic attack. She did not think this was due to her COPD. Patient was oxygen dependent but was taken off of oxygen in May. She was told by her provider up in [place] that she was overdosing on oxygen and didn't need oxygen any longer. Previously she was on 4 L of oxygen. She has received some treatment in the emergency department with the BiPAP with some improvement of her respiratory distress. She was admitted to medical floor where she did radiated became severely hypercapnic and hypoxemic. She was transferred emergently to ICU and immediately intubated for respiratory failure. 09/21/17: Remains intubated sedated critically ill. FiO2 had been weaned to 60% PEEP remains at 10. On brief sedation hold able to follow commands 4. Chest x -ray shows bibasilar consolidation. Send sputum culture. DC ceftriaxone. Start cefepime 2 g IV every 8 hours, Levaquin 750 mg every 24 hours 09/22: remains intubated and hypoxic. becomes quite agitated when sedation vacation. cultures NGTD. off pathway. CXR today with worsening lung-space disease as well as left pleural effusion. effusion confirmed on bedside ultrasonography, however, relatively small area of posterior effusion and would be high risk to drain given super morbid obesity. 09/23: Unable to recruit bases with conventional ventilation modes, will convert to APRV. Gas exchange markedly impaired at present. 09/24: Finally getting lung bases recruited on APRV with mean airway pressure almost 30. Needs additional diuresis. Suspect chronic pulmonary artery hypertension. 09/25: Will try to wean but may need tracheostomy. Diuresis complete, now azotemia. 09/26: No events over the night. Patient doing better, FiO2 down to 0.3, P high decreased to 30 this AM. Urine output low yesterday afternoon, gentle iv hydration started. Remains on light sedation due to agitation. Afebrile, off antibiotics. 09/27: No events over the night. Improved urine output, I/O 2558/1275. Afebrile. Switched to PRVC, currently on PEEP of 12, plan to taper it down as tolerated. She opens eyes to voice stimuli and follows some commands. 09/28: Patient did well over the night. This AM sedation stopped, awake, following some commands, anxious at times. Afebrile, I/O 2484/1850. PEEP decreased to 6. 09/29: Patient was extubated yesterday to BPAP. She was tried off BPAP but she did not do well without it. She is currently on 15/8/45%, on low dose precedex, awake, following commands. 09/30: Unfortunately the patient remains BPAP dependent. She is awake, follows commands, denies any pain. BPAP settings improved, on 0.35 FiO2. I/O 964/2600. 10/01: Patient did not tolerate HFNC at 40 L/min and 100% and remains completely BPAP dependent. Off mask desaturates to 70% in less than one minute. Awake, follows commands. I/O 250/2550. 10/02: Required reintubation. Palliative Care discussing care goals with patient. 10/03: Currently remains on vent support, FiO2 60%. Wakes up easily, follows commands. Palliative care is following to assist with goals of care 10/04: Remains on vent support. Unable to wean. Palliative care met with family yesterday-plan is to withdraw life support, and comfort measures Objective Vital Signs Date Time Temp Pulse Resp B/P (MAP) Pulse Ox O2 Delivery O2 Flow Rate FiO2 10/04/17 08:15 95 45 10/04/17 07:30 Mechanical Ventilator 10/04/17 06:00 76 10/04/17 04:00 98.4 18 119/65 (83) Intake and Output 10/04/17 10/04/17 10/05/17 08:00 16:00 00:00 Intake Total 1748 ml Output Total 1150 ml Balance 598 ml Result Diagram: 10/02/17 0600 10/02/17 0600 Imaging Last 24 hours Impressions Chest X-Ray 09/20/17 1003 Signed Impressions: Service Date/Time: Wednesday, September 20, 2017 10:50 - CONCLUSION: Cardiomegaly. Some consolidation in the right lung base most likely atelectasis. Roni Shah MD Chest X-Ray 1/17/18 0000 Signed Impressions: Service Date/Time: Wednesday, September 20, 2017 22:10 - CONCLUSION: 1. Very limited study. 2. Tip of the endotracheal tube within the right mainstem bronchus. Suggest retracting it approximately 4 cm. 3. Bibasilar densities. This may be in part due to effusions. Vivek Sung Jr., MD Objective Remarks General - Morbidly obese, intubated HEENT - BALDOMERO, neck soft, no rigidity, unable to appreciate neck veins distension , no carotid bruit. Orotracheally intubated CV - Regular S1, S2, no murmurs, distant Chest - coarse breath sounds b/l, decreased air entry at bases, no wheezes Abdomen - soft, obese, non-tender, BS present, unable to appreciate hepatomegaly or splenomegaly Skin - no rashes, dusky toes Extremities - warm, trace edema, + peripheral pulses, no clubbing Neuro - intubated sedated. Date of Insertion: Sep 23, 2017 Line: Central Venous Catheter Side: Right Location: Subclavian A/P Assessment and Plan ASSESSMENT: Acute on chronic hypoxemic, hypercapnic respiratory failure Bilateral pneumonia COPD with exacerbation Obesity hypoventilation syndrome and obstructive sleep apnea Anxiety/depression/panic attack Super Morbid obesity Agitated Delirium Hypertension PLAN: - Reintubated 10/01/17, apparently difficult airway-see intubation note from Dr. Ann - Chest x-ray with bibasilar infiltrates/effusion - Off antibiotics , Off steroids. Off lasix - Palliative care following. Unable to successfully wean off the ventilator. Family wants to terminate withdrawal and transition to comfort measures Addendum: Dr. Rodrigeuz had long discussion with Mary Miller [phone] regarding his mother' s critical condition and lack of improvement despite all our efforts, discussed about the necessity of re-intubating her and placing a tracheostomy and he understands however he is not sure that that would be his mother's wish. He wants to discuss with his father and patient's sisters who will come by the hospital today to visit Mrs. Miller and he will let us know. Level 2 Discussed with extended family and palliative care. Withdrawal paperwork signed Ronny Knight MD Oct 04, 2017 10:15
--- NOTE | 2017-10-04 10:38 | HHI.HCPN ---
Reason for visit a. To assist with evaluation and management of symptoms including: dyspnea, agitation, debility b. To assist medical decision maker(s) with: better understanding of current medical conditions; weighing benefits/burdens of medical treatment options; making medical treatment decisions. . Subjective/Interval History Patient remains intubated, sedated. Multiple family members are at bedside. Son, Mary, had signed withdrawal exhibits 10/03 but clarification was required regarding his opinion on the withdrawal, to specify whether he had previously had conversations with his mother regarding her wishes or believed that it was in the patient's best interest in spite of not having conversations with her. I did telephone Mary to clarify this matter and noted his choice on the consent form. This was then reviewed with the attending, Dr. Knight agreed that the patient did have a terminal condition and signed the exhibits certifying so. . Family/friend interactions Met with family at bedside and, after discussion with Mary, who is requesting immediate withdrawal. Spoke with patient's niece, Zenia, who is a nurse practitioner and who had spoken with the patient last evening when she was more awake. During that conversation she explained to the patient that her lungs were very poor and that she was not going to be able to come off the ventilator and would require long-term care with long-term ventilator support. The patient squeezed her hand with each question, indicating her understanding. Zenia stated that she had reviewed the information with her aunt several times in varying question formats and states that her aunt indicated her awareness of her diagnosis and likely terminal outcome by squeezing her hand. Zenia stated that she had not discussed this with Mary to provide him further family support. Provided anticipatory guidance education to the family regarding upcoming withdrawal procedures and expectations. All questions were answered to their satisfaction and contact information was provided for any subsequent questions that might arise. . Objective Vital Signs Date Time Temp Pulse Resp B/P (MAP) Pulse Ox O2 Delivery O2 Flow Rate FiO2 10/04/17 08:15 95 45 10/04/17 07:30 94 Mechanical Ventilator 45 10/04/17 06:00 76 10/04/17 04:00 79 10/04/17 04:00 98.4 79 18 119/65 (83) 96 10/04/17 04:00 55 10/04/17 03:48 93 55 1/31/18 02:00 85 10/04/17 00:00 55 10/04/17 00:00 82 10/04/17 00:00 98.8 82 18 125/64 (84) 94 10/03/17 23:36 94 55 10/03/17 22:00 86 10/03/17 20:40 100 55 10/03/17 20:00 55 10/03/17 20:00 91 10/03/17 20:00 98.8 91 19 146/63 (90) 95 10/03/17 19:00 97 Mechanical Ventilator 55 10/03/17 18:00 86 10/03/17 16:00 98.8 78 18 116/53 (74) 92 10/03/17 16:00 60 10/03/17 16:00 78 10/03/17 15:57 92 55 10/03/17 14:00 76 10/03/17 12:00 60 10/03/17 12:00 95 55 10/03/17 12:00 82 10/03/17 12:00 99.0 82 18 122/61 (81) 95 Intake & Output 10/04/17 10/04/17 07:00 19:00 Intake Total 1948 ml Output Total 1150 ml Balance 798 ml Intake IV Total 1388 ml Tube Feeding 480 ml Other 80 ml Output Urine Total 1150 ml # Bowel Movements 1 Physical Exam CONSTITUTIONAL/GENERAL: Morbidly obese, elderly female patient currently intubated on mechanical ventilation TUBES/LINES/DRAINS:ETT, OGT, CVL. Urinary catheter SKIN: Ecchymoses on upper extremities. Abrasion across the bridge of nose. Skin temperature appropriate. Not diaphoretic. HEAD: Atraumatic. Normocephalic. EYES: Pupils equal and round and reactive. No scleral icterus. No injection or drainage. Fundi not examined. ENT: Hearing grossly normal. Nose without bleeding or purulent drainage. NECK: Trachea midline. CARDIOVASCULAR: Regular rate and rhythm without murmurs, gallops, or rubs. . Peripheral pulses symmetric. RESPIRATORY/CHEST: Intubated on mechanical ventilator. Breath sounds coarse bilaterally; diminished air exchange at bases. No wheezes, rales, or rhonchi. GASTROINTESTINAL: Soft, obese, nontender. Bowel sounds present. GENITOURINARY: Without palpable bladder distension. MUSCULOSKELETAL: Extremities without clubbing or mottling. Fingertips are cyanotic, toes dusky. Trace edema LYMPHATICS: No palpable cervical or supraclavicular adenopathy. NEUROLOGICAL: Sedated. Opens eyes spontaneously Able to follow simple commands ; moving all extremities PSYCHIATRIC: No apparent hallucinations or other psychotic thought process. . Diagnostic Tests Laboratory Laboratory Tests Test 10/02/17 05:44 10/02/17 06:00 10/02/17 23:46 Blood Gas Puncture Site RT RADIAL RT RADIAL Blood Gas Patient Temperature 98.6 98.6 Blood Gas HCO3 33 mmol/L (22-26) 35 mmol/L (22-26) Blood Gas Base Excess 7.6 mmol/L (-2-2) 7.6 mmol/L (-2-2) Blood Gas Oxygen Saturation 93 % (90-100) 72 % (90-100) Arterial Blood pH 7.35 (7.380-7.420) 7.21 (7.380-7.420) Arterial Blood Partial Pressure CO2 62 mmHg (38-42) 91 mmHg (38-42) Arterial Blood Partial Pressure O2 84 mmHg (61-120) 47 mmHg (61-120) Arterial Blood Oxygen Content 17.6 Vol % (12.0-20.0) 14.6 Vol % (12.0-20.0) Arterial Blood Carboxyhemoglobin 1.8 % (0-4) 2.0 % (0-4) Arterial Blood Methemoglobin 1.2 % (0-2) 0.9 % (0-2) Blood Gas Hemoglobin 13.4 G/DL (12.0-16.0) 14.4 G/DL (12.0-16.0) Oxygen Delivery Device VENT BIPAP Blood Gas Ventilator Setting SEE COMMENT SEE COMENT Blood Gas Inspired Oxygen 60 % 80 % White Blood Count 12.0 TH/MM3 (4.0-11.0) Red Blood Count 5.13 MIL/MM3 (4.00-5.30) Hemoglobin 13.1 GM/DL (11.6-15.3) Hematocrit 40.9 % (35.0-46.0) Mean Corpuscular Volume 79.8 FL (80.0-100.0) Mean Corpuscular Hemoglobin 25.6 PG (27.0-34.0) Mean Corpuscular Hemoglobin Concent 32.0 % (32.0-36.0) Red Cell Distribution Width 16.9 % (11.6-17.2) Platelet Count 230 TH/MM3 (150-450) Mean Platelet Volume 7.7 FL (7.0-11.0) Neutrophils (%) (Auto) 84.5 % (16.0-70.0) Lymphocytes (%) (Auto) 6.6 % (9.0-44.0) Monocytes (%) (Auto) 7.8 % (0.0-8.0) Eosinophils (%) (Auto) 0.5 % (0.0-4.0) Basophils (%) (Auto) 0.6 % (0.0-2.0) Neutrophils # (Auto) 10.2 TH/MM3 (1.8-7.7) Lymphocytes # (Auto) 0.8 TH/MM3 (1.0-4.8) Monocytes # (Auto) 0.9 TH/MM3 (0-0.9) Eosinophils # (Auto) 0.1 TH/MM3 (0-0.4) Basophils # (Auto) 0.1 TH/MM3 (0-0.2) CBC Comment DIFF FINAL Differential Comment Blood Urea Nitrogen 12 MG/DL (7-18) Creatinine 0.35 MG/DL (0.50-1.00) Random Glucose 94 MG/DL (74-106) Calcium Level 8.2 MG/DL (8.5-10.1) Sodium Level 143 MEQ/L (136-145) Potassium Level 3.9 MEQ/L (3.5-5.1) Chloride Level 100 MEQ/L (98-107) Carbon Dioxide Level 34.7 MEQ/L (21.0-32.0) Anion Gap 8 MEQ/L (5-15) Estimat Glomerular Filtration Rate 185 ML/MIN (>89) . Result Diagram: 10/02/17 0600 10/02/17 0600 Microbiology Microbiology Date/Time Source Procedure Growth Status 09/21/17 15:40 Sputum Endotracheal Gram Stain - Final Complete 09/21/17 15:40 Sputum Endotracheal Sputum Culture - Final LIGHT GROWTH NORMAL RESPIRATORY WILIAN Complete . Imaging Last Impressions Chest X-Ray 10/02/17 0000 Signed Impressions: Service Date/Time: Monday, October 02, 2017 01:47 - CONCLUSION: 1. Cardiomegaly with basilar airspace disease and pleural effusions similar to September 28. Endotracheal tube and right central line in good position. Cash Landeros MD CT Angiography 09/20/17 0000 Signed Impressions: Service Date/Time: September 01:28 - CONCLUSION: 1. No pulmonary embolus. 2. There is a suspected atelectasis or consolidation seen along the medial aspects of the lungs bilaterally and at the left base. 3. The main pulmonary superior prominent which can suggest pulmonary hypertension. 4. The ET tube tip is at the edilberto. 5. Small pleural effusions. Eugene Miller MD . Procedures 09/20/2017: Intubation 09/23/2017: Right subclavian CVL placement 10/02/2017: Therapeutic bronchoscopy and reintubation . Assessment and Plan Disease Oriented Problem List: (1) Acute respiratory failure (2) COPD (chronic obstructive pulmonary disease) (3) Hypertension (4) Anxiety and depression (5) History of bleeding ulcers Symptom Scale: (1) Debility (2) Dyspnea (3) Agitation Pertinent Non-Medical Issues Psychosocial: Patient lives in [place], [place] and comes to [place] in the winter. Patient was to her first for approximately 10 years before . She has one adopted son, Mary, who she adopted when he was only 1-week-old. Patient worked as a teacher. She has been to her current (Joshua), who is 98 years old, for approximately 35 years. Patient's sister states the patient has distanced herself from her family over the years. Per sister's report, patient has a history of panic attacks/anxiety/ depression, compulsive eating and hoarding. Spiritual: [employer] Legal: Per [place] statutes, in the absence of written advanced directives healthcare proxy decision-making falls to the patient's spouse. Ethical issues impacting care: No known ethical issues impacting care at this time. . Important Contacts Mary Miller, son: [phone] Joshua Miller, spouse: [phone] . Prognosis Patient is a morbidly obese female with acute on chronic hypoxemic, hypercapnic respiratory failure. She remains critically ill with no significant improvement despite aggressive efforts. Patient had to be reintubated overnight and will likely require tracheostomy, possibly permanent. Given her advance age, body habitus and multiple comorbid conditions, she is high risk for ongoing decline and complications. . Code Status: Full Code Plan * NO CODE- DNR/DNI * Decision-making: Per [place] statutes, in the absence of written advanced directives healthcare proxy decision-making falls to the patient's ( Joshua). Patient's spouse is unsure if he is comfortable making health care decision for his independently, therefore recommendations for joint decision-making with patient's son. * Discussed with patient's bedside nurse (Nancie) and Dr. Knight. Dr. Knight is aware of plan to transition to comfort focused care 10/04/17 * Symptom management-dyspnea: Status post bronchoscopy and reintubation overnight 10/02/2017. Patient will difficult to wean from vent without tracheostomy F/U x-ray showing cardiomegaly with basilar airspace disease and pleural effusions similar to previous imaging on 09/28/17. Off steroids; off antibiotics. Patient will remain high risk for pneumonia, ongoing respiratory issues secondary to his underlying disease processes and debilitation, bedbound status. No active infection at this time, blood cultures negative. In preparation for ventilator withdrawal, patient was premedicated with morphine and Ativan, with additional doses to be given at time of extubation and scheduled doses every 4 hours to maintain comfort with as needed doses available if needed. * Symptom management-pain: Due to bedbound status, inability to communicate or reposition himself, she is at risk for pain. Abdomen has old scarring noted with scattered ulcerated areas measuring 1.3 cm x 1.0 cm x 0.1 cm. Wound care following. Morphine available for discomfort. * Symptom management-debility: Patient is a morbidly obese female who has declined since a previous hospitalization 68 months ago. Patient's son states his mother is now requiring a walker to ambulate. Patient has reported her activity level is diminished secondary to weakness and dyspnea. * Palliative care spoke with patient's son, Mary, and multiple extended family members who are at bedside regarding her condition and likelihood of continued decline and inability to wean off ventilator. All family members are in agreement with Mary's decision for compassionate withdrawal of ventilator support. Anticipatory guidance provided and opportunities to ask questions made available. All questions answered, contact information provided for any continued questions or concerns. * Palliative care will continue to follow this patient throughout his hospitalization to establish trust, assist with symptom management and clarification of medical treatment goals. . Time Spent Time Periods: 9:50-10:40 Total Floor Time (mins): 50 Face to Face Time (mins): 30 >50% Counseling/Coord of Care: Yes Attestation To help prompt me to consider important information that might be impacting today's encounter and assessment, information from prior notes written by myself or my colleagues may have been "brought forward" into today's note. My signature on this note, however, is an attestation that I personally performed the exam, history, and/or decision-making noted today, and, unless otherwise indicated, the interactions with patient, family, and staff as well as the review of records all occurred today. I also attest that the listed assessment and stated plan reflect my best clinical judgment today based on the combination of historical information, prior notes, and today's exam/ interactions. When time spent is documented, it refers only to time spent today by the signer, or if indicated, combined time spent today by collaborating physician/nurse practitioner. . Tiarra Gacria Oct 04, 2017 10:38
[2017-10-04] MEDS ORDERED: HYOSCYAMINE 0.5 MG/ML AMP IV PUSH PRN (10:45)
[2017-10-04] MEDS ORDERED: ACETAMINOPHEN 650 MG SUPP RECTAL PRN (10:45)
[2017-10-04] MEDS ORDERED: BISACODYL 10 MG SUPP RECTAL PRN (10:45)
[2017-10-04] MEDS ORDERED: PROPOFOL 500 MG/50 ML INJ 50 ML ONE (10:45)
[2017-10-04] MEDS ORDERED: MORPHINE SULFATE 8 MG/ML INJ IV PUSH PRN (10:45)
[2017-10-04] MEDS ORDERED: MORPHINE SULFATE 4 MG/ML INJ IV PUSH ONE (10:45)
[2017-10-04] MEDS ORDERED: LORazepam 2 MG/ML VIAL IV PUSH PRN ×3 (10:45)
[2017-10-04] MEDS ORDERED: FUROSEMIDE 20 MG/2 ML VIAL IV PUSH PRN (10:45)
[2017-10-04] MEDS ORDERED: MORPHINE SULFATE 4 MG/ML INJ IV PUSH PRN (10:45)
[2017-10-04] MEDS ORDERED: LORazepam 2 MG/ML VIAL IV PUSH SCH (12:00)
[2017-10-04] MEDS ORDERED: MORPHINE SULFATE 4 MG/ML INJ IV PUSH SCH (12:00)
--- NOTE | 2017-10-04 12:31 | DEATH SUM ---
Summary Demographics Date Pronounced : Oct 04, 2017 Time Of : 12:25 Pronounced By: RN Preliminary Cause of : Cardiac arrest Ronny Knight MD Oct 04, 2017 12:31
--- NOTE | 2017-10-04 12:34 | HHI.DS ---
Summary Note Date of : Oct 04, 2017 Time Of : 12:25 Admission Date Sep 20, 2017 at 13:49 Admitting Diagnosis COPD EXACERBATION WITH HYPOXEMIA Diagnosis at Time of : (1) Acute hypoxemic respiratory failure ICD Code: J96.01 - Acute respiratory failure with hypoxia Diagnosis: Principal (2) COPD with acute exacerbation ICD Code: J44.1 - Chronic obstructive pulmonary disease with (acute) exacerbation Diagnosis: Principal (3) Bilateral pneumonia ICD Code: J18.9 - Pneumonia, unspecified organism Diagnosis: Principal (4) Hypercapnemia ICD Code: R06.89 - Other abnormalities of breathing Diagnosis: Principal (5) Encephalopathy acute ICD Code: G93.40 - Encephalopathy, unspecified Diagnosis: Principal (6) Super morbid obesity Diagnosis: Secondary (7) JOVAN (obstructive sleep apnea) ICD Code: G47.33 - Obstructive sleep apnea (adult) (pediatric) Diagnosis: Secondary (8) Hypertension ICD Code: I10 - Essential (primary) hypertension Diagnosis: Secondary Procedures 09/20/17 Endotracheal intubation 09/23/17 Central line 10/02/17: Endotracheal intubation and bronchoscopy Brief History This is a 67-year-old female with past medical history of COPD, history of being oxygen dependent, panic/anxiety/depression disorder who presented with shortness of breathing. Patient stated that shortness of breathing was abrupt and started yesterday. She stated that this was due to her panic attack. She did not think this was due to her COPD. She has been very stressed and did not want to go further detail. She stated that she had a panic attack and these are her usual symptoms. She stated that shortness of breathing was intermittent. It worsened today so she went to the emergency department. She denies any URI symptoms. Denies any cough. Patient denies any history of tobacco use. Denies any fevers or chills. Patient was oxygen dependent but was taken off of oxygen in May. She was told by her provider up in [place] that she was overdosing on oxygen and didn't need oxygen any longer. Previously she was on 4 L of oxygen. At the moment patient stated that her breathing has improved. She also denied having hypertension. She stated she was on Benicar a few years ago but was taken off her medications and she did not need it. She stated that her blood pressure fluctuates and that her anxiety causes her blood pressure to go up. She also stated that when she goes to doctor's offices her blood pressure is high. Patient's is at the bedside during the interview. All other review system reviewed and negative. CBC/BMP: 10/02/17 0600 10/02/17 0600 Significant Findings Laboratory Tests Test 10/02/17 05:44 10/02/17 06:00 10/02/17 23:46 Blood Gas HCO3 33 mmol/L (22-26) 35 mmol/L (22-26) Blood Gas Base Excess 7.6 mmol/L (-2-2) 7.6 mmol/L (-2-2) Arterial Blood pH 7.35 (7.380-7.420) 7.21 (7.380-7.420) Arterial Blood Partial Pressure CO2 62 mmHg (38-42) 91 mmHg (38-42) White Blood Count 12.0 TH/MM3 (4.0-11.0) Mean Corpuscular Volume 79.8 FL (80.0-100.0) Mean Corpuscular Hemoglobin 25.6 PG (27.0-34.0) Neutrophils (%) (Auto) 84.5 % (16.0-70.0) Lymphocytes (%) (Auto) 6.6 % (9.0-44.0) Neutrophils # (Auto) 10.2 TH/MM3 (1.8-7.7) Lymphocytes # (Auto) 0.8 TH/MM3 (1.0-4.8) Creatinine 0.35 MG/DL (0.50-1.00) Calcium Level 8.2 MG/DL (8.5-10.1) Carbon Dioxide Level 34.7 MEQ/L (21.0-32.0) Blood Gas Oxygen Saturation 72 % (90-100) Arterial Blood Partial Pressure O2 47 mmHg (61-120) Imaging Last 24 hours Impressions Chest X-Ray 09/20/17 1003 Signed Impressions: Service Date/Time: Wednesday, September 20, 2017 10:50 - CONCLUSION: Cardiomegaly. Some consolidation in the right lung base most likely atelectasis. Roni Shah MD Chest X-Ray 09/20/17 0000 Signed Impressions: Service Date/Time: Wednesday, September 20, 2017 22:10 - CONCLUSION: 1. Very limited study. 2. Tip of the endotracheal tube within the right mainstem bronchus. Suggest retracting it approximately 4 cm. 3. Bibasilar densities. This may be in part due to effusions. Vivek Sung Jr., MD Hospital Course 67-year-old unfortunate morbidly obese female with past medical history of COPD , history of being oxygen dependent, panic/anxiety/depression disorder who presented with shortness of breathing. Patient stated that shortness of breathing was abrupt and started yesterday. She stated that this was due to her panic attack. She did not think this was due to her COPD. Patient was oxygen dependent but was taken off of oxygen in May. She was told by her provider up in [place] that she was overdosing on oxygen and didn't need oxygen any longer. Previously she was on 4 L of oxygen. She has received some treatment in the emergency department with the BiPAP with some improvement of her respiratory distress. She was admitted to medical floor where she did radiated became severely hypercapnic and hypoxemic. She was transferred emergently to ICU and immediately intubated for respiratory failure. 09/21/17: Remains intubated sedated critically ill. FiO2 had been weaned to 60% PEEP remains at 10. On brief sedation hold able to follow commands 4. Chest x -ray shows bibasilar consolidation. Send sputum culture. DC ceftriaxone. Start cefepime 2 g IV every 8 hours, Levaquin 750 mg every 24 hours 09/22: remains intubated and hypoxic. becomes quite agitated when sedation vacation. cultures NGTD. off pathway. CXR today with worsening lung-space disease as well as left pleural effusion. effusion confirmed on bedside ultrasonography, however, relatively small area of posterior effusion and would be high risk to drain given super morbid obesity. 09/23: Unable to recruit bases with conventional ventilation modes, will convert to APRV. Gas exchange markedly impaired at present. 09/24: Finally getting lung bases recruited on APRV with mean airway pressure almost 30. Needs additional diuresis. Suspect chronic pulmonary artery hypertension. 09/25: Will try to wean but may need tracheostomy. Diuresis complete, now azotemia. 09/26: No events over the night. Patient doing better, FiO2 down to 0.3, P high decreased to 30 this AM. Urine output low yesterday afternoon, gentle iv hydration started. Remains on light sedation due to agitation. Afebrile, off antibiotics. 09/27: No events over the night. Improved urine output, I/O 2558/1275. Afebrile. Switched to PRVC, currently on PEEP of 12, plan to taper it down as tolerated. She opens eyes to voice stimuli and follows some commands. 09/28: Patient did well over the night. This AM sedation stopped, awake, following some commands, anxious at times. Afebrile, I/O 2484/1850. PEEP decreased to 6. 09/29: Patient was extubated yesterday to BPAP. She was tried off BPAP but she did not do well without it. She is currently on 15/8/45%, on low dose precedex, awake, following commands. 09/30: Unfortunately the patient remains BPAP dependent. She is awake, follows commands, denies any pain. BPAP settings improved, on 0.35 FiO2. I/O 964/2600. 10/01: Patient did not tolerate HFNC at 40 L/min and 100% and remains completely BPAP dependent. Off mask desaturates to 70% in less than one minute. Awake, follows commands. I/O 250/2550. 10/02: Required reintubation. Palliative Care discussing care goals with patient. 10/03: Currently remains on vent support, FiO2 60%. Wakes up easily, follows commands. Palliative care is following to assist with goals of care 10/04: Palliative care met with family yesterday-plan is to withdraw life support, and comfort measures. After administration of comfort medications, active life support was withdrawn and patient at 1225 on 10/04/17 Ronny Knight MD Oct 04, 2017 12:33
== END 2017-10-04 12:25 | disposition expired | DRG 207 ==
LOC: NEPE 09:29 → NEDA 13:49 → N04A 16:46 → N03A 21:30
PROVIDERS: ADMIT Internal Medicine Critical Care Medicine; ATTEND Internal Medicine Critical Care Medicine
PROC: 5A09357 Assistance with Respiratory Ventilation, Less than 24 Consecutive Hours, Continuous Positive Airway Pressure (ICD-10-PCS; principal; 2017-09-20)
PROC: 5A1955Z Respiratory Ventilation, Greater than 96 Consecutive Hours (ICD-10-PCS; 2017-09-20)
PROC: 0BH17EZ Insertion of Endotracheal Airway into Trachea, Via Natural or Artificial Opening (ICD-10-PCS; 2017-09-20)
PROC: 05H533Z Insertion of Infusion Device into Right Subclavian Vein, Percutaneous Approach (ICD-10-PCS; 2017-09-23)
PROC: 5A1945Z Respiratory Ventilation, 24-96 Consecutive Hours (ICD-10-PCS; 2017-10-02)
PROC: 0BH17EZ Insertion of Endotracheal Airway into Trachea, Via Natural or Artificial Opening (ICD-10-PCS; 2017-10-02)
PROC: 0BCB8ZZ Extirpation of Matter from Left Lower Lobe Bronchus, Via Natural or Artificial Opening Endoscopic (ICD-10-PCS; 2017-10-02)
PROC: 0BC68ZZ Extirpation of Matter from Right Lower Lobe Bronchus, Via Natural or Artificial Opening Endoscopic (ICD-10-PCS; 2017-10-02)
DX: J96.21 Acute and chronic respiratory failure with hypoxia (principal); G93.40 Encephalopathy, unspecified; J18.9 Pneumonia, unspecified organism; J90 Pleural effusion, not elsewhere classified; E87.2 Acidosis; E87.3 Alkalosis; I11.9 Hypertensive heart disease without heart failure; Z99.81 Dependence on supplemental oxygen; J44.1 Chronic obstructive pulmonary disease with (acute) exacerbation; E66.2 Morbid (severe) obesity with alveolar hypoventilation; J98.11 Atelectasis; Z99.11 Dependence on respirator [ventilator] status; L98.498 Non-pressure chronic ulcer of skin of other sites with other specified severity; J44.0 Chronic obstructive pulmonary disease with (acute) lower respiratory infection; J96.22 Acute and chronic respiratory failure with hypercapnia; I44.7 Left bundle-branch block, unspecified; F32.9 Major depressive disorder, single episode, unspecified; F41.0 Panic disorder [episodic paroxysmal anxiety]; Z98.84 Bariatric surgery status; Z87.11 Personal history of peptic ulcer disease; Z80.1 Family history of malignant neoplasm of trachea, bronchus and lung; Z82.49 Family history of ischemic heart disease and other diseases of the circulatory system; T17.990A Other foreign object in respiratory tract, part unspecified in causing asphyxiation, initial encounter; I51.7 Cardiomegaly; Z51.5 Encounter for palliative care; Z74.01 Bed confinement status; I46.9 Cardiac arrest, cause unspecified
CPT/HCPCS: 31500; 36556; 36600; 71045; 71275; 80048; 80053; 81001; 82805; 82948; 83735; 83880; 84100; 84155; 84484; 85025; 85027; 85610; 85730; 87070; 87205; 87641; 87804; 93005; 94002; 94003; 94150; 94640; 94664; 96374; 96375; C9113; J0330; J0360; J0692; J0696; J1250; J1644; J1650; J1815; J1940; J1956; J1980; J2060; J2270; J2405; J2920; J2930; J3010; J3480; J7030; J7050; J7060; J7120; J7613; Q9967